=== PATIENT | female | born 1955 | race Asian ===

== ENCOUNTER 2017-08-16 21:58 | Inpatient (IN) | payer MEDICAID, OTHER ==
[~2017-08-16] VITALS: Ht 152.4 cm; Wt 90.3 kg
[2017-08-16] MEDS ORDERED: AMLODIPINE BES2.5 MG ORAL (22:03)
[2017-08-16] MEDS ORDERED: SIMVASTATIN5 MG ORAL (22:03)
[2017-08-16] MEDS ORDERED: METOPROLOL TART25 MG ORAL (22:03)
[2017-08-16] MEDS ORDERED: Albuterol ud Inhalation HHN ONE (22:15)
[2017-08-16] MEDS ORDERED: Ipratropium 0.02% Inh Soln 2.5ml UD HHN ONE (22:15)
[2017-08-16] MEDS ORDERED: Solu-MEDROL 125mg Inj IVP ONE (22:15)
--- NOTE | 2017-08-16 22:16 | Emergency Room Report ---
History of Present Illness General Chief Complaint: Dyspnea/Respdistress Source: Patient, EMS Present Illness HPI Is a 51-year-old female who has a history pulmonary hypertension. She does not have COPD. She presents with shortness of breath the last 2 days. Per EMS observation was sooner percent room air. They put her on oxygen brought her here. Patient normally on 2 L of oxygen at home home. Complaining of shortness of breath the last 2 days. No fever or chills. No cough or congestion. Worse with exertion. Said her symptom in the past. No fever or chills. No nausea vomiting. No chest pain. No leg edema or pain. Allergies: Coded Allergies: No Known Allergies (Unverified , 08/16/17) Patient History Past Medical History: see triage record, old chart reviewed Past Surgical History: other Pertinent Family History: none Social History: Denies: smoking, alcohol use, drug use Last Menstrual Period: unk Now: No Immunizations: other Reviewed Nursing Documentation: PMH: Agreed, PSxH: Agreed Nursing Documentation-PMH Past Medical History: No History, Except For Hx Hypertension: Yes Hx COPD: Yes Hx Diabetes: Yes Review of Systems Eye: Denies: eye pain, blurred vision ENT: Denies: ear pain, nose congestion, throat swelling Respiratory: Reports: shortness of breath, Denies: cough Cardiovascular: Denies: chest pain, palpitations Gastrointestinal: Denies: abdominal pain, diarrhea, nausea, vomiting Musculoskeletal: Denies: back pain, joint pain Skin: Denies: rash Neurological: Denies: headache, numbness Endocrine: Denies: increased thirst, increased urine Hematologic/Lymphatic: Denies: easy bruising All Other Systems: negative except mentioned in HPI Physical Exam Vital Signs Date Time Temp Pulse Resp B/P (MAP) Pulse Ox O2 Delivery O2 Flow Rate FiO2 08/16/17 21:52 73 24 142/83 94 Room Air vitals with hypoxia. Oxygenation is 88% on 6 L Sp02 EP Interpretation: abnormal General Appearance: alert, GCS 15, mild distress, obese Head: normocephalic, atraumatic Eyes: bilateral eye PERRL, bilateral eye EOMI ENT: hearing grossly normal, normal pharynx Neck: full range of motion, supple, no meningismus Respiratory: chest non-tender, lungs clear, normal breath sounds, decreased breath sounds Cardiovascular #1: regular rate, rhythm, no murmur Gastrointestinal: normal bowel sounds, non tender, no mass, no organomegaly, no bruit, non-distended Musculoskeletal: back normal, gait/station normal, normal range of motion Psychiatric: mood/affect normal Skin: warm/dry Procedures Critical Care Time Critical Care Time Critical care is mandated in this patient who presented with acute on chronic respiratory failure requiring intubation.. Patient require my urgent intervention to attenuate the risks of () which may lead to cardiovascular collapse and . Critical care time is 35 minutes excluding any reportable procedure. Critical care time included evaluation, multiple reevaluation, looking at old charts, interpreting laboratory and diagnostic data, discussing case with patient and family and consultants, and charting. Intubation Intubation : Consent: Emergent Intubation Method: orotracheal Tube Size (cm): 7.5 Medications: Etomidate, Succinylcholine Breath Sounds after Intubation: equal Intubation Complications: no complications Post Intubation Xray: Yes Progress/Xray Impression: ETT 4cm above gayla. no ptx Attempts: One Patient Tolerated: Well Complications: None Medical Decision Making Diagnostic Impression: Primary Impression: Respiratory failure requiring intubation Additional Impressions: Respiratory failure with hypoxia and hypercapnia Qualified Codes: J96.21 - Acute and chronic respiratory failure with hypoxia; J96.22 - Acute and chronic respiratory failure with hypercapnia Acute exacerbation of CHF (congestive heart failure) Qualified Codes: I50.9 - Heart failure, unspecified Pneumonia Qualified Codes: J18.9 - Pneumonia, unspecified organism ACS (acute coronary syndrome) NSTEMI, initial episode of care Morbid obesity with BMI of 40.0-44.9, adult Proteinuria Qualified Codes: R80.9 - Proteinuria, unspecified ER Course Patient presents with respiratory distress with hypoxia. She has multiple issues. . She has acute on chronic respiratory failure. She was waiting for bed, she became more somnolent. Blood gas she'll hypercapnia. She has history of shortness sleep apnea and I place her on BiPAP. This did not help. Her CO2 is to increase. I intubated her. Labs showed myocardial infarction. This may be secondary to pulmonary week. She also has CHF. There is an infiltrate versus ground glass density in the lung. This may be infiltrate versus vascular congestion/edema. I went and cover with antibiotics. Dr. Lee was in ER and saw pt. He will admit for Dr. Schmidt. Laboratory Tests Test 08/16/17 22:20 08/17/17 00:53 08/17/17 02:00 08/17/17 03:55 White Blood Count 9.0 K/UL (4.8-10.8) Red Blood Count 5.54 M/UL (4.20-5.40) H Hemoglobin 15.5 G/DL (12.0-16.0) Hematocrit 55.5 % (37.0-47.0) H Mean Corpuscular Volume 100 FL (80-99) H Mean Corpuscular Hemoglobin 27.9 PG (27.0-31.0) Mean Corpuscular Hemoglobin Concent 27.9 G/DL (32.0-36.0) L Red Cell Distribution Width 14.9 % (11.6-14.8) H Platelet Count 164 K/UL (150-450) Mean Platelet Volume 9.1 FL (6.5-10.1) Neutrophils (%) (Auto) 62.6 % (45.0-75.0) Lymphocytes (%) (Auto) 30.4 % (20.0-45.0) Monocytes (%) (Auto) 5.5 % (1.0-10.0) Eosinophils (%) (Auto) 0.3 % (0.0-3.0) Basophils (%) (Auto) 1.2 % (0.0-2.0) Prothrombin Time 10.4 SEC (9.30-11.50) Prothromb Time International Ratio 1.0 (0.9-1.1) Activated Partial Thromboplast Time 25 SEC (23-33) D-Dimer 1.13 mg/L FEU (0.00-0.49) H Sodium Level 138 MMOL/L (136-145) Potassium Level 4.7 MMOL/L (3.5-5.1) Chloride Level 97 MMOL/L (98-107) L Carbon Dioxide Level 40 MMOL/L (21-32) H Anion Gap 0 mmol/L (5-15) L Blood Urea Nitrogen 17 mg/dL (7-18) Creatinine 1.3 MG/DL (0.55-1.30) Estimat Glomerular Filtration Rate 41.9 mL/min (>60) Glucose Level 151 MG/DL (74-106) H Calcium Level 7.6 MG/DL (8.5-10.1) L Total Bilirubin 0.8 MG/DL (0.2-1.0) Aspartate Amino Transf (AST/SGOT) 25 U/L (15-37) Alanine Aminotransferase (ALT/SGPT) 18 U/L (12-78) Alkaline Phosphatase 87 U/L (46-116) Total Creatine Kinase 73 U/L (26-308) Creatine Kinase MB 2.1 NG/ML (0.0-3.6) Creatine Kinase MB Relative Index 2.8 Troponin I 0.694 ng/mL (0.000-0.056) Pro-B-Type Natriuretic Peptide 6230 pg/mL (0-125) H Total Protein 8.7 G/DL (6.4-8.2) H Albumin 3.4 G/DL (3.4-5.0) Globulin 5.3 g/dL Albumin/Globulin Ratio 0.6 (1.0-2.7) L Urine Color Pale yellow Urine Appearance Clear Urine pH 5 (4.5-8.0) Urine Specific [place] 1.010 (1.005-1.035) Urine Protein 3+ (NEGATIVE) H Urine Glucose (UA) Negative (NEGATIVE) Urine Ketones Negative (NEGATIVE) Urine Occult Blood 1+ (NEGATIVE) H Urine Nitrite Negative (NEGATIVE) Urine Bilirubin Negative (NEGATIVE) Urine Urobilinogen Normal MG/DL (0.0-1.0) Urine Leukocyte Esterase 1+ (NEGATIVE) H Urine RBC 0-2 /HPF (0 - 2) Urine WBC 2-4 /HPF (0 - 2) Urine Squamous Epithelial Cells Moderate /LPF (NONE/OCC) H Urine Bacteria Few /HPF (NONE) Arterial Blood pH 7.120 (7.350-7.450) 7.040 (7.350-7.450) Arterial Blood Partial Pressure CO2 138.2 mmHg (35.0-45.0) *H 178.5 mmHg (35.0-45.0) *H Arterial Blood Partial Pressure O2 89.0 mmHg (75.0-100.0) 82.4 mmHg (75.0-100.0) Arterial Blood HCO3 44.1 mmol/L (22.0-26.0) H 47.7 mmol/L (22.0-26.0) H Arterial Blood Oxygen Saturation 94.6 % (92.0-98.0) 92.4 % (92.0-98.0) Arterial Blood Base Excess 8.4 9.3 Ajay Test Positive Positive Lab Results Impression labs with elevated troponin and BNP EKG Diagnostic Results Rate: normal Rhythm: NSR ST Segments: other - NSST changes Rhythm Strip Diag. Results Rhythm Strip Time: 22:16 EP Interpretation: yes Rate: 80 Rhythm: NSR, no PVC's, no ectopy Chest X-Ray Diagnostic Results Chest X-Ray Diagnostic Results #1: Chest X-Ray Ordered: Yes # of Views/Limited/Complete: 1 View Indication: Shortness of Breath EP Interpretation: Yes Interpretation: no effusion, no pneumothorax, other - Cardiomegaly with vasc congestion. ?RML infiltrate Impression: Other - CHF Electronically Signed by: Gregg Layne MD Chest X-Ray Diagnostic Results #2: Chest X-Ray Ordered: Yes # of Views/Limited/Complete: 1 View Indication: Shortness of Breath EP Interpretation: Yes Interpretation: no effusion, no pneumothorax, other - s/p ETT. Impression: Other - s/p intubation Electronically Signed by: Gregg Layne MD Last Vital Signs Date Time Temp Pulse Resp B/P (MAP) Pulse Ox O2 Delivery O2 Flow Rate FiO2 08/16/17 22:00 73 24 Room Air 08/16/17 21:52 142/83 94 Status: improved Disposition: ADMITTED INPATIENT Condition: Critical GREGG LAYNE M.D. Aug 16, 2017 22:16
[2017-08-16 22:48] LABS: BASOPHILS % (AUTO) 1.2 % (0.0-2.0); EOSINOPHILS % (AUTO) 0.3 % (0.0-3.0); HEMATOCRIT 55.5 % (37.0-47.0); HEMOGLOBIN 15.5 G/DL (12.0-16.0); LYMPHOCYTES % (AUTO) 30.4 % (20.0-45.0); MEAN CORPUSCULAR VOLUME 100 FL (80-99); MONOCYTES % (AUTO) 5.5 % (1.0-10.0); NEUTROPHILS % (AUTO) 62.6 % (45.0-75.0); PLATELET COUNT 164 K/UL (150-450); RED BLOOD COUNT 5.54 M/UL (4.20-5.40); RED CELL DISTRIBUTION WIDTH 14.9 % (11.6-14.8)
[2017-08-16 23:09] LABS: ALANINE AMINOTRANSFERASE 18 U/L (12-78); ALBUMIN 3.4 G/DL (3.4-5.0); ALBUMIN/GLOBULIN RATIO 0.6 (1.0-2.7); ALKALINE PHOSPHATASE 87 U/L (46-116); ANION GAP 0 mmol/L (5-15); ASPARTATE AMINO TRANSFERASE 25 U/L (15-37); BILIRUBIN,TOTAL 0.8 MG/DL (0.2-1.0); BLOOD UREA NITROGEN 17 mg/dL (7-18); CALCIUM 7.6 MG/DL (8.5-10.1); CHLORIDE 97 MMOL/L (98-107); CKMB 2.1 NG/ML (0.0-3.6); CREATINE KINASE 73 U/L (26-308); CREATININE 1.3 MG/DL (0.55-1.30); POTASSIUM 4.7 MMOL/L (3.5-5.1); SODIUM 138 MMOL/L (136-145)
[2017-08-16 23:11] LABS: CARBON DIOXIDE 40 MMOL/L (21-32)
[2017-08-16] MEDS ORDERED: Enoxaparin 100mg Inj SUBQ ONE (23:15)
[2017-08-16] MEDS ORDERED: Aspirin Baby 81mg ORAL ONE (23:15)
[2017-08-17] VITALS (18 sets, daily range): BP systolic 98–154; BP diastolic 35–90
[2017-08-17 01:13] LABS: APPEARANCE,URINE CLEAR; BILIRUBIN, URINE NEGATIVE (NEGATIVE); COLOR,URINE PALE YELLOW; GLUCOSE, URINE (UA) NEGATIVE (NEGATIVE); KETONES,URINE NEGATIVE (NEGATIVE); LEUKOCYTE ESTERASE ,URINE 1+ (NEGATIVE); NITRITE,URINE NEGATIVE (NEGATIVE); PH,URINE 5 (4.5-8.0); PROTEIN,URINE 3+ (NEGATIVE); UROBILINOGEN,URINE NORMAL MG/DL (0.0-1.0)
[2017-08-17] MEDS ORDERED: Albuterol ud Inhalation HHN ONE (01:45)
[2017-08-17] MEDS ORDERED: Midazolam 2mg/2ml Inj IVP ONE (05:00)
[2017-08-17] MEDS ORDERED: Zosyn 3.375gm inj ONE (05:10)
[2017-08-17] MEDS ORDERED: Piperacillin/Tazobactam 3.375 GM in NS 55 ML IVPB ONE (05:15)
[2017-08-17] MEDS ORDERED: LANTUS SOL100 UNIT/1 SUBQ (08:37)
--- NOTE | 2017-08-17 10:13 | Diagnostic Imaging Report ---
Indication: Chest pain Technique: Continuous helical transaxial imaging of the chest was obtained from the thoracic inlet to the upper abdomen during rapid intravenous contrast administration. Arterial phase of enhancement obtained. Coronal 2-D reformats were also obtained and maximum intensity projection images in multiple planes. Study obtained in a Siemens sensation [address] Automatic Exposure Control was utilized. Total Dose length Product (DLP): 1410.[address] Dose Index Volume (CTDIvol): 38.24 37.87, 12.62 mGy Comparison: None Findings: There is no pulmonary embolus identified. The main pulmonary artery is enlarged which is consistent with pulmonary artery hypertension. The aorta is normal in caliber. There is no dissection or aneurysm. The heart is moderately enlarged. Trace pleural effusions are present bilaterally. There is evidence of posterior basilar atelectasis without reticular densities noted within the lungs especially in the dependent portion of the lungs. Reflux contrast into the IVC demonstrated. Visualized part of the upper abdomen is unremarkable in appearance. IMPRESSION: No evidence of pulmonary embolus, aortic dissection or aneurysm. Evidence of pulmonary artery hypertension. Moderate cardiomegaly. Reflux contrast into the IVC. Right heart failure versus tricuspid regurgitation. Posterior basilar atelectasis and trace pleural effusions. [facility] has communicated the preliminary results to the Emergency Department. Their findings are largely concordant with this report. The CT scanner at [facility] is accredited by the [employer] and the scans are performed using dose optimization techniques as appropriate to a performed exam including Automatic Exposure control.
--- NOTE | 2017-08-17 11:34 | Diagnostic Imaging Report ---
Indication: Dyspnea Comparison: 08/16/2017 A single view chest radiograph was obtained. Findings: Endotracheal tube is in the position. There is no change otherwise. Pulmonary edema and enlargement of the pulmonary artery and cardiomegaly are noted. IMPRESSION: Endotracheal tube in good position. CHF
--- NOTE | 2017-08-17 11:44 | Diagnostic Imaging Report ---
Indication: Dyspnea Comparison: None A single view chest radiograph was obtained. Findings: Pulmonary edema is present. The heart is enlarged. Bones are osteopenic. IMPRESSION: Moderate pulmonary edema
--- NOTE | 2017-08-17 12:50 | Cardiology Report ---
APPROVED REPORT EKG Measurement Heart [id number] MI [id number] Normal sinus rhythm with sinus arrhythmia Possible Left atrial enlargement Right axis deviation Possible Right ventricular hypertrophy Abnormal ECG
--- NOTE | 2017-08-17 15:51 | Pulmonolgy Critical Care Note ---
Critical Care - Asmt/Plan Assessment/Plan: ASSESSMENT acute hypoxemic hypercapnic RF requiring intubation elevated troponin possible NSTEMI pulmonary edema possible CHF exacerbation pulmonary arterial HTN possible sepsis possible PNA cellulitis BLE elevated D dimer morbid obesity COPD/asthma DM HTN Hyperlipidemia hx of DIANN PLAN OF CARE ICU care vent support pulmonary toilet daily CXR and ABG and titrate settings as needed serial troponin ECHO diuresis cardio eval monitor volumes,cardiorenal parameters start Lovenox bid for now with further rec from cardio CTA no PE Venous Duplex BLE empiric abx, fup with cx, ID consult not cleared if she has COPD ? pulmonary HTN in middle age female w/out hx of COPD concerning for collagen vascular disease, will get SESAR panel DVT /GI prophylaxis BS management with SS sensitive insulin BP monitoring , normotensive BiPAP at night when extubated hypercapnia possibly element of chronic plan to start weaning soon case discussed and evaluated by supervising physician Critical Care - Objective Last 24 Hour Vital Signs Date Time Temp Pulse Resp B/P (MAP) Pulse Ox O2 Delivery O2 Flow Rate FiO2 08/17/17 15:29 75 31 30 08/17/17 15:00 67 17 124/66 98 Mechanical Ventilator 30 08/17/17 14:00 62 17 114/60 97 Mechanical Ventilator 30 08/17/17 13:40 72 08/17/17 13:28 99.0 92 17 111/68 95 Mechanical Ventilator 15.0 30 08/17/17 13:21 99.0 92 17 111/68 95 Mechanical Ventilator 30 08/17/17 13:14 66 18 100 08/17/17 12:55 98.9 72 20 111/50 94 Mechanical Ventilator 30 08/17/17 12:33 65 17 105/61 95 Mechanical Ventilator 30 08/17/17 11:10 15.0 30 08/17/17 10:54 61 17 100 08/17/17 10:32 61 17 123/35 100 Mechanical Ventilator 60 08/17/17 09:11 15.0 50 08/17/17 08:57 68 19 100 08/17/17 07:51 63 19 98/38 100 Mechanical Ventilator 08/17/17 06:58 62 18 100 08/17/17 06:16 15.0 100 08/17/17 05:23 88 23 138/90 100 Endotracheal Tube 15.0 100 08/17/17 04:41 89 23 100 08/17/17 03:25 88 23 140/78 95 Bi-pap 15.0 40 08/17/17 02:37 79 23 95 Facial 40 08/17/17 01:52 94 22 100 Non-Rebreather 15.0 100 08/17/17 01:30 92 18 99 Non-Rebreather 15.0 100 08/17/17 00:00 83 18 154/69 100 Non-Rebreather 15.0 100 08/16/17 22:28 89 18 100 Non-Rebreather 15.0 100 08/16/17 22:23 88 18 Non-Rebreather 15.0 100 08/16/17 22:18 88 18 99 Non-Rebreather 15.0 100 08/16/17 22:00 73 24 Room Air 08/16/17 21:52 73 24 142/83 94 Room Air Status: awake Condition: critical HEENT: atraumatic, normocephalic, other - OP with ET in palce, intact Lungs: clear - with moderate air exchange , few isolated rales at bases Heart: HR/BP stable Abdomen: soft, non-tender - obese Extremities: no C/C/E, other - BLE with redness, edema, hot to touch Critical Care - Subjective ROS Limited/Unobtainable: Yes - du7e to intubation Interval Events: intubated due to severe hypercapnic hypoxemic RF on BiPAP elevated troponin unclear if has COPD hx but CTA , which was done due to elevated D dimer ( and showed no evidence of PE) demonstrated PAH currently awake, responsive, no signs of resp distress on current settings Condition: critical IV Access: peripheral EKG Rhythm: Sinus Rhythm FI02: 30 Vent Support Breath Rate: 17 Vent Support Mode: AC Vent Tidal Volume: 500 Sputum Amount: Small PEEP: 5.0 PIP: 30 I&O: Intake and Output 08/16/17 08/17/17 19:00 07:00 Intake Total 0 ml Balance 0 ml Intake Oral 0 ml ET-Tube: 7.5 ET Position: 19 [place] [facility]Estefania COTTON Aug 17, 2017 15:51
[2017-08-17] MEDS ORDERED: Albuterol/Ipratropium 3ml neb HHN PRN (16:15)
[2017-08-17] MEDS ORDERED: Vancomycin 1gm in D5W 275ml IVPB SCH (18:00)
--- NOTE | 2017-08-17 19:23 | Consultation ---
Consult Note Consult Note Cardiology for Dr. Tao Full note dictated #[id number] Assessment/Plan Assessment: 61 yo HF w/ pulm hypertension, adm w/ respiratory failure. CXR, BNP c/w CHF. Mild trop inc and anterior T inversion - ? acute anterior nonSTEMI . CTA- neg PE, aortic dissection Rec: will check serial trop, EKGs. ECHO - tech difficult - wall motion not assessed. RV press reported as 20 (prelim). Agree w/ iv lasix for pulm edema. Vent support. Start asa, statin, b krishna and continue lovenox sc. Will follow. Full note dictated #[id number] HOSSEIN LOVE Aug 17, 2017 19:23
[2017-08-17] MEDS: Albuterol/Ipratropium 3ml neb INH SCH (19:28)
[2017-08-17] MEDS: Aspirin Baby 81mg NG SCH (20:00)
[2017-08-17] MEDS: Metoprolol Tartrate 12.5mg TAB NG SCH (21:11)
[2017-08-17] MEDS: Enoxaparin Sodium 300mg/3ml vial SUBQ SCH (21:13)
[2017-08-17] MEDS: Piperacillin/Tazobactam 3.375 GM in D5W 55 ML IVPB SCH (21:59)
[2017-08-18] VITALS (24 sets, daily range): BP systolic 99–132; BP diastolic 42–75
--- NOTE | 2017-08-18 03:00 | Consultation ---
DATE OF CONSULTATION: 08/17/2017 CARDIOLOGY CONSULTATION CONSULTING PHYSICIAN: Jasmin Mallory M.D. This is a cardiology consultation done as coverage for Dr. Tao. REQUESTING PHYSICIAN: Viv Schmidt M.D. REASON FOR CONSULTATION: Elevated troponin and abnormal EKG. HISTORY OF PRESENT ILLNESS: History is obtained primarily from the chart as the patient is intubated, able to answer few questions with nodding or shaking her head. The patient is a 61-year-old woman with a history of pulmonary hypertension and diabetes, who presented to the emergency room with increasing shortness of breath over 2 days prior to admission. Per the emergency room notes, she was on 2 liters of nasal cannula oxygen at home. She had no cough, fever, or chills. She was in respiratory distress with oxygen saturation in the 80s and required urgent intubation and mechanical ventilation. She is currently seen in the ICU on the ventilator. She denies chest pain, previous history of myocardial infarction, or angina. On admission, her troponin level was elevated at 0.694. EKG showed some right ventricular hypertrophy and anterior T-wave inversions. The preliminary echo was a technically difficult study, but reports an ejection fraction of 55%, limited evaluation of wall motion and no significant valve lesions. PAST MEDICAL HISTORY: As noted above. MEDICATIONS: Currently, Protonix 40 mg IV daily, Zosyn 3.375 g IV q.8 h., Lasix 40 mg IV q.12 h., Lovenox 90 mg subcutaneously q.12 h., albuterol/ipratropium nebulizer t.i.d., and vancomycin 1 g IV q.24 h. dosing per pharmacy. ALLERGIES: No known drug allergies. SOCIAL HISTORY: Not obtainable from the patient or chart. REVIEW OF SYSTEMS: Not obtainable from the patient or chart. PHYSICAL EXAMINATION: VITAL SIGNS: Blood pressure is 110/64, pulse 73 and regular, respirations 20, and temperature 99. GENERAL: Sedated, well-developed woman, who is on the ventilator, in no respiratory distress. HEENT: Normocephalic and atraumatic. Pupils are equal, round, and reactive to light. Sclerae anicteric. Endotracheal tube in place. NECK: Supple. There is no jugular venous distention. No thyromegaly or adenopathy. LUNGS: Bilateral scattered rhonchi. No rales or wheezes. HEART: Regular S1 and S2. No murmurs, rubs, S3, or S4. ABDOMEN: Soft and nontender. No palpable mass. No bruits. EXTREMITIES: No cyanosis, clubbing, or edema. Pulses, distal extremity pulses 2+ bilaterally. SKIN: Warm and dry. No rashes or lesions. LABORATORY AND DIAGNOSTIC DATA: Sodium 138, potassium 4.7, chloride 97, bicarbonate 40, BUN 17, and creatinine 1.3. Troponin 0.694, repeat 0.547. Lactic acid 2.7. ProBNP 6230. Hemoglobin 15, hematocrit 55, and white blood count 9000. INR 1.0. Arterial blood gas on admission, pH 7.12, pCO2 of 138, pO2 of 89, and oxygen saturation 94%. Post intubation, pH 7.51, pCO2 of 49, pO2 of 56, and saturation 93%. Chest x-ray shows cardiomegaly and pulmonary edema. EKG on admission showed sinus rhythm with sinus arrhythmia, right axis deviation, right atrial enlargement, and anterior T-wave inversion. Repeat EKG today shows sinus rhythm, rate of 68 beats per minute, deeply inverted T-waves in V1 through V4, RSR prime in V1, biphasic T-waves in V3 and aVF. Chest CT angiogram shows a large main pulmonary artery and left and right main pulmonary arteries consistent with pulmonary hypertension. No aneurysm or dissection. No central pulmonary embolus. Peripheral branches were not evaluated due to respiratory motion and parenchymal abnormalities. ASSESSMENT AND RECOMMENDATIONS: The patient is a 61-year-old woman with pulmonary hypertension, who was admitted with respiratory failure, currently intubated and on mechanical ventilation. She has mild troponin elevation and EKG suggestive of anterior non-ST elevation myocardial infarction with deeply inverted T-waves anteriorly. Her echocardiogram does not report wall motion abnormalities, however, it is a technically difficult study. Her chest x-ray appears with pulmonary edema. I would favor diuretics for pulmonary edema. We will start aspirin, statin, beta-blockers, and continue anticoagulation. Troponins will be trended and serial EKGs obtained. She will require further assessment for ischemia once she is more stable from a pulmonary standpoint. She may have an underlying pneumonia and is being covered with intravenous antibiotics and treated as per her primary physician. Jasmin Mallory M.D. DR: HOWARD JOB#: [id number] CC:
[2017-08-18 04:57] LABS: BASOPHILS % (AUTO) 0.7 % (0.0-2.0); EOSINOPHILS % (AUTO) 0.1 % (0.0-3.0); HEMATOCRIT 48.7 % (37.0-47.0); HEMOGLOBIN 14.6 G/DL (12.0-16.0); LYMPHOCYTES % (AUTO) 19.1 % (20.0-45.0); MEAN CORPUSCULAR VOLUME 96 FL (80-99); PLATELET COUNT 165 K/UL (150-450); RED BLOOD COUNT 5.08 M/UL (4.20-5.40); WHITE BLOOD COUNT 9.4 K/UL (4.8-10.8)
[2017-08-18 05:33] LABS: ALANINE AMINOTRANSFERASE 11 U/L (12-78); ALBUMIN 2.8 G/DL (3.4-5.0); ALBUMIN/GLOBULIN RATIO 0.7 (1.0-2.7); ALKALINE PHOSPHATASE 62 U/L (46-116); ANION GAP 4 mmol/L (5-15); ASPARTATE AMINO TRANSFERASE 26 U/L (15-37); BILIRUBIN,TOTAL 1.7 MG/DL (0.2-1.0); BLOOD UREA NITROGEN 21 mg/dL (7-18); CALCIUM 8.4 MG/DL (8.5-10.1); CHLORIDE 98 MMOL/L (98-107); CHOLESTEROL 190 MG/DL (< 200); CREATININE 1.6 MG/DL (0.55-1.30); HDL CHOLESTEROL 51 MG/DL (40-60); POTASSIUM 3.6 MMOL/L (3.5-5.1); SODIUM 142 MMOL/L (136-145); TRIGLYCERIDES 118 MG/DL (30-150)
[2017-08-18 06:04] LABS: CARBON DIOXIDE 40 MMOL/L (21-32)
[2017-08-18 06:06] LABS: BILIRUBIN,DIRECT 0.4 MG/DL (0.0-0.3)
[2017-08-18] MEDS: Piperacillin/Tazobactam 3.375 GM in D5W 55 ML IVPB SCH (06:10)
--- NOTE | 2017-08-18 07:15 | History and Physical Report ---
DATE OF ADMISSION: 08/17/2017 INTERNAL MEDICINE HISTORY AND PHYSICAL Covering for Dr. Segal. IDENTIFICATION DATA: The patient is a pleasant 61-year-old female with past medical history significant for pulmonary hypertension, who presents at this time with respiratory failure, BNP elevated consistent with congestive heart failure, mild troponin increase, potentially anterior T-wave inversion, and potentially anterior NSTEMI. CTA showed no evidence of pulmonary embolism or aortic dissection. Recommended for checking serial troponins as per Cardiology Service. Vent support as the patient is intubated. She does have a history of COPD. She has been on oxygen in the past two liters and again currently admitted to the intensive care unit for further evaluation. PAST MEDICAL HISTORY: As noted above. PAST SURGICAL HISTORY: None noted. ALLERGIES: No known drug allergies. SOCIAL HISTORY: No alcohol or tobacco use except in the past. REVIEW OF SYSTEMS: A 12-point review of systems is otherwise negative besides as noted in the history of present illness. PHYSICAL EXAMINATION: GENERAL: No acute distress. VITAL SIGNS: Reviewed. PULMONARY: Decreased breath sounds. Status post intubation. CARDIOVASCULAR: Regular rate. No S3 or S4. ABDOMEN: Soft, nontender, and nondistended. EXTREMITIES: A 1+ edema. LABORATORY DATA: WBC 9.9, hemoglobin 14.5, and platelet count 164,000. ASSESSMENT AND RECOMMENDATIONS: 1. Respiratory failure, status post intubation. She has been seen by Pulmonary team. Continue to closely monitor. 2. Non-ST elevation myocardial infarction, potentially in the anterior area with elevated troponins, serial EKG and troponin is pending. CT if needed for pulmonary embolism. 3. Right ventricular strain, potentially services. Continue aspirin, statin, beta-krishna, and Lovenox subcutaneously. 4. Lactic acidosis. Continue to closely monitor, potentially secondary to demand. 5. Pulmonary hypertension. Diuresis. Evaluation per Pulmonary team. 6. Sepsis and pneumonia. Infectious Diseases Service has been consulted. I appreciate dairy feed sales consultant care. Dick Lee M.D. DR: ADELINE JOB#: [id number] CC:
[2017-08-18] MEDS: Albuterol/Ipratropium 3ml neb INH SCH ×3 (07:29→19:12)
[2017-08-18] MEDS: Pantoprazole Inj IVP SCH (09:01)
[2017-08-18] MEDS: Enoxaparin Sodium 300mg/3ml vial SUBQ SCH ×2 (09:03→21:36)
[2017-08-18] MEDS: Aspirin Baby 81mg NG SCH (09:03)
[2017-08-18] MEDS: Metoprolol Tartrate 12.5mg TAB NG SCH ×2 (09:03→21:30)
--- NOTE | 2017-08-18 09:58 | Pulmonolgy Critical Care Note ---
Critical Care - Asmt/Plan Assessment/Plan: ASSESSMENT acute hypoxemic hypercapnic RF requiring intubation elevated troponin possible NSTEMI pulmonary edema possible CHF exacerbation likely ATN pulmonary arterial HTN possible sepsis possible PNA cellulitis BLE elevated D dimer morbid obesity COPD/asthma DM HTN Hyperlipidemia hx of DIANN hypo Mg elevated TSH PLAN OF CARE ICU care vent support pulmonary toilet ABG stable this am start weaning protocol serial troponin trending down ECHO diuresis, pro BNP trending down, creat up to 1.6 change Lasix to daily closely monitor renal parameters, lytes, volumes replace mg cardio follows continue Lovenox with regards to elevatad creat as per pharmacy dosing CTA no PE Venous Duplex BLE lipid panel with elevated LDL, 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 , but patient states she does pulmonary HTN in middle age female w/out hx of COPD concerning for collagen vascular disease, will get SESAR panel DVT /GI prophylaxis BS management with SS sensitive insulin, for now start NGT feeding with Glucerna, if extubated will do oral diet BP monitoring , normotensive BiPAP at night when extubated hypercapnia possibly element of chronic elevated TSH, check free T 4, r/o hypothyroidism , case discussed and evaluated by supervising physician Critical Care - Objective Last 24 Hour Vital Signs Date Time Temp Pulse Resp B/P (MAP) Pulse Ox O2 Delivery O2 Flow Rate FiO2 08/18/17 09:30 30 08/18/17 09:15 30 08/18/17 09:12 95 08/18/17 09:11 66 21 30 08/18/17 09:03 65 101/42 08/18/17 09:00 68 19 110/63 94 Mechanical Ventilator 30 08/18/17 08:00 97.8 67 18 101/42 94 Mechanical Ventilator 30 08/18/17 08:00 30 08/18/17 08:00 67 08/18/17 07:38 65 21 99 Mechanical Ventilator 30 08/18/17 07:30 62 20 100 Mechanical Ventilator 30 08/18/17 07:25 65 20 30 08/18/17 07:00 64 19 108/68 94 Mechanical Ventilator 30 08/18/17 06:00 63 18 108/68 94 Mechanical Ventilator 30 08/18/17 05:27 66 20 30 08/18/17 05:00 67 18 107/46 94 Mechanical Ventilator 30 08/18/17 04:00 63 08/18/17 04:00 30 08/18/17 04:00 98.0 63 18 109/69 94 Mechanical Ventilator 30 08/18/17 03:14 60 17 30 08/18/17 03:00 60 17 113/54 94 Mechanical Ventilator 30 08/18/17 02:00 65 17 115/52 95 Mechanical Ventilator 30 08/18/17 01:05 62 17 30 08/18/17 01:00 63 17 114/52 95 Mechanical Ventilator 30 08/18/17 00:00 30 08/18/17 00:00 86 08/18/17 00:00 98.6 62 17 100/56 94 Mechanical Ventilator 30 08/17/17 23:00 61 17 105/62 94 Mechanical Ventilator 30 08/17/17 22:58 67 17 30 08/17/17 22:00 65 17 106/62 94 Mechanical Ventilator 30 08/17/17 21:28 75 24 30 08/17/17 21:11 72 115/61 08/17/17 21:00 62 17 125/61 95 Mechanical Ventilator 30 08/17/17 20:00 98.8 62 17 115/61 94 Mechanical Ventilator 30 08/17/17 19:37 70 20 95 Mechanical Ventilator 30 08/17/17 19:28 30 08/17/17 19:27 70 20 95 Mechanical Ventilator 30 08/17/17 19:25 73 19 30 08/17/17 19:00 62 17 117/54 95 Mechanical Ventilator 30 08/17/17 18:00 73 20 110/64 96 Mechanical Ventilator 30 08/17/17 17:29 74 19 30 08/17/17 17:00 67 17 111/60 94 Mechanical Ventilator 30 08/17/17 16:00 71 08/17/17 16:00 30 08/17/17 16:00 99.0 72 17 118/68 96 Mechanical Ventilator 30 08/17/17 15:29 75 31 30 08/17/17 15:00 67 17 124/66 98 Mechanical Ventilator 30 08/17/17 14:00 62 17 114/60 97 Mechanical Ventilator 30 08/17/17 13:40 72 08/17/17 13:28 99.0 92 17 111/68 95 Mechanical Ventilator 15.0 30 08/17/17 13:21 99.0 92 17 111/68 95 Mechanical Ventilator 30 08/17/17 13:14 66 18 100 08/17/17 12:55 98.9 72 20 111/50 94 Mechanical Ventilator 30 08/17/17 12:33 65 17 105/61 95 Mechanical Ventilator 30 08/17/17 11:10 15.0 30 08/17/17 10:54 61 17 100 08/17/17 10:32 61 17 123/35 100 Mechanical Ventilator 60 Objective: Status: awake, intubated on vent AC Condition: critical HEENT: atraumatic, normocephalic, OP with ET in place, intact, NGT Lungs: clear - with moderate air exchange , few isolated rales at bases Heart: HR/BP stable Abdomen: soft, non-tender - obese Extremities: no C/C/E, BLE with redness, edema, hot to touch Critical Care - Subjective ROS Limited/Unobtainable: Yes Interval Events: ABG stable this am, no signs of respiratory distress troponin trending down creat up to 1.6 low Mg pro BNP down to 1208 Condition: critical IV Access: peripheral EKG Rhythm: Sinus Rhythm FI02: 30 Vent Support Breath Rate: 14 Vent Support Mode: CPAP Vent Tidal Volume: 500 Sputum Amount: Small PEEP: 5.0 PIP: 32 I&O: Intake and Output 08/17/17 08/18/17 19:00 07:00 Output Total 1613 ml 2390 ml Balance -1613 ml -2390 ml Output Urine Total 1613 ml 2390 ml Stool Total 0 ml CXR: 08/17 Pulmonary edema and enlargement of the pulmonary artery and cardiomegaly are noted. ET-Tube: 7.5 ET Position: 20 [place] [facility] Segura NP Aug 18, 2017 09:58
--- NOTE | 2017-08-18 10:04 | Consultation ---
History of Present Illness General Date patient seen: Aug 18, 2017 Time patient seen: 10:02 Chief Complaint: Dyspnea/Respdistress Present Illness HPI 61 y/o F with hx of pHTN, COPD on home O2 2l NC, CHF, DM2 presents to ED on with 2 days worsening of SOB. In ED was on respiratory distress with O2 sat in the 80s and was intubated and transferred to the ICU. CTA no PE. Found to have elevated BNP, elevated troponin and anterior T wave inversions Denies cough, f/c ID is consulted for possible PNA and b/l LE cellulitis Allergies: Coded Allergies: No Known Allergies (Unverified , 08/16/17) Medication History Scheduled Amlodipine Besylate* (Amlodipine Besylate*), 2.5 MG ORAL DAILY, (Reported) Insulin Glargine (Lantus), 2 UNITS SUBQ BID, (Reported) Metoprolol Tartrate* (Metoprolol Tartrate*), 25 MG ORAL EVERY 12 HOURS, ( Reported) Simvastatin (Zocor), 5 MG ORAL BEDTIME, (Reported) Patient History Healthcare decision maker Resuscitation status Full Code Advanced Directive on File Patient History Narrative PMhx: as above SHx: No alcohol or tobacco use except in the past. Fhx: non contributory Review of Systems ROS Narrative unable to obtain Physical Exam Physical Exam Narrative GENERAL: No acute distress. VITAL SIGNS: Reviewed. PULMONARY: Decreased breath sounds. Status post intubation. CARDIOVASCULAR: Regular rate. No S3 or S4. ABDOMEN: Soft, nontender, and nondistended. EXTREMITIES: A 1+ edema. b/l leg chornic venous stasis changes Last 24 Hour Vital Signs Date Time Temp Pulse Resp B/P (MAP) Pulse Ox O2 Delivery O2 Flow Rate FiO2 08/18/17 09:30 30 08/18/17 09:15 30 08/18/17 09:12 95 08/18/17 09:11 66 21 30 08/18/17 09:03 65 101/42 08/18/17 09:00 68 19 110/63 94 Mechanical Ventilator 30 08/18/17 08:00 97.8 67 18 101/42 94 Mechanical Ventilator 30 08/18/17 08:00 30 08/18/17 08:00 67 08/18/17 07:38 65 21 99 Mechanical Ventilator 30 08/18/17 07:30 62 20 100 Mechanical Ventilator 30 08/18/17 07:25 65 20 30 08/18/17 07:00 64 19 108/68 94 Mechanical Ventilator 30 08/18/17 06:00 63 18 108/68 94 Mechanical Ventilator 30 08/18/17 05:27 66 20 30 08/18/17 05:00 67 18 107/46 94 Mechanical Ventilator 30 08/18/17 04:00 63 08/18/17 04:00 30 08/18/17 04:00 98.0 63 18 109/69 94 Mechanical Ventilator 30 08/18/17 03:14 60 17 30 08/18/17 03:00 60 17 113/54 94 Mechanical Ventilator 30 08/18/17 02:00 65 17 115/52 95 Mechanical Ventilator 30 08/18/17 01:05 62 17 30 08/18/17 01:00 63 17 114/52 95 Mechanical Ventilator 30 08/18/17 00:00 30 08/18/17 00:00 86 08/18/17 00:00 98.6 62 17 100/56 94 Mechanical Ventilator 30 08/17/17 23:00 61 17 105/62 94 Mechanical Ventilator 30 08/17/17 22:58 67 17 30 08/17/17 22:00 65 17 106/62 94 Mechanical Ventilator 30 08/17/17 21:28 75 24 30 08/17/17 21:11 72 115/61 08/17/17 21:00 62 17 125/61 95 Mechanical Ventilator 30 08/17/17 20:00 98.8 62 17 115/61 94 Mechanical Ventilator 30 08/17/17 19:37 70 20 95 Mechanical Ventilator 30 08/17/17 19:28 30 08/17/17 19:27 70 20 95 Mechanical Ventilator 30 08/17/17 19:25 73 19 30 08/17/17 19:00 62 17 117/54 95 Mechanical Ventilator 30 08/17/17 18:00 73 20 110/64 96 Mechanical Ventilator 30 08/17/17 17:29 74 19 30 08/17/17 17:00 67 17 111/60 94 Mechanical Ventilator 30 08/17/17 16:00 71 08/17/17 16:00 30 08/17/17 16:00 99.0 72 17 118/68 96 Mechanical Ventilator 30 08/17/17 15:29 75 31 30 12/27/17 15:00 67 17 124/66 98 Mechanical Ventilator 30 08/17/17 14:00 62 17 114/60 97 Mechanical Ventilator 30 08/17/17 13:40 72 08/17/17 13:28 99.0 92 17 111/68 95 Mechanical Ventilator 15.0 30 08/17/17 13:21 99.0 92 17 111/68 95 Mechanical Ventilator 30 08/17/17 13:14 66 18 100 08/17/17 12:55 98.9 72 20 111/50 94 Mechanical Ventilator 30 08/17/17 12:33 65 17 105/61 95 Mechanical Ventilator 30 08/17/17 11:10 15.0 30 08/17/17 10:54 61 17 100 08/17/17 10:32 61 17 123/35 100 Mechanical Ventilator 60 Intake and Output 08/17/17 08/18/17 19:00 07:00 Output Total 1613 ml 2390 ml Balance -1613 ml -2390 ml Output Urine Total 1613 ml 2390 ml Stool Total 0 ml Laboratory Tests Test 08/17/17 11:30 08/17/17 12:30 08/17/17 12:35 08/17/17 18:35 Lactic Acid Level 2.70 mmol/L (0.66-2.22) H 2.30 mmol/L (0.66-2.22) H 1.90 mmol/L (0.66-2.22) Troponin I 0.547 ng/mL (0.000-0.056) 0.457 ng/mL (0.000-0.056) Arterial Blood pH 7.510 (7.350-7.450) Arterial Blood Partial Pressure CO2 49.5 mmHg (35.0-45.0) H Arterial Blood Partial Pressure O2 56.2 mmHg (75.0-100.0) L Arterial Blood HCO3 39.2 mmol/L (22.0-26.0) H Arterial Blood Oxygen Saturation 93.2 % (92.0-98.0) Arterial Blood Base Excess 14.1 Ajay Test Positive Test 08/18/17 04:47 08/18/17 09:35 White Blood Count 9.4 K/UL (4.8-10.8) Red Blood Count 5.08 M/UL (4.20-5.40) Hemoglobin 14.6 G/DL (12.0-16.0) Hematocrit 48.7 % (37.0-47.0) H Mean Corpuscular Volume 96 FL (80-99) Mean Corpuscular Hemoglobin 28.8 PG (27.0-31.0) Mean Corpuscular Hemoglobin Concent 30.0 G/DL (32.0-36.0) L Red Cell Distribution Width 14.0 % (11.6-14.8) Platelet Count 165 K/UL (150-450) Mean Platelet Volume 8.4 FL (6.5-10.1) Neutrophils (%) (Auto) 71.0 % (45.0-75.0) Lymphocytes (%) (Auto) 19.1 % (20.0-45.0) L Monocytes (%) (Auto) 9.0 % (1.0-10.0) Eosinophils (%) (Auto) 0.1 % (0.0-3.0) Basophils (%) (Auto) 0.7 % (0.0-2.0) Sodium Level 142 MMOL/L (136-145) Potassium Level 3.6 MMOL/L (3.5-5.1) Chloride Level 98 MMOL/L (98-107) Carbon Dioxide Level 40 MMOL/L (21-32) H Anion Gap 4 mmol/L (5-15) L Blood Urea Nitrogen 21 mg/dL (7-18) H Creatinine 1.6 MG/DL (0.55-1.30) H Estimat Glomerular Filtration Rate 33.0 mL/min (>60) Glucose Level 102 MG/DL (74-106) Hemoglobin A1c 5.7 % (4.3-6.0) Calcium Level 8.4 MG/DL (8.5-10.1) L Magnesium Level 1.4 MG/DL (1.8-2.4) L Total Bilirubin 1.7 MG/DL (0.2-1.0) H Direct Bilirubin 0.4 MG/DL (0.0-0.3) H Aspartate Amino Transf (AST/SGOT) 26 U/L (15-37) Alanine Aminotransferase (ALT/SGPT) 11 U/L (12-78) L Alkaline Phosphatase 62 U/L (46-116) Troponin I 0.430 ng/mL (0.000-0.056) Pro-B-Type Natriuretic Peptide 1208 pg/mL (0-125) H Total Protein 7.1 G/DL (6.4-8.2) Albumin 2.8 G/DL (3.4-5.0) L Globulin 4.3 g/dL Albumin/Globulin Ratio 0.7 (1.0-2.7) L Triglycerides Level 118 MG/DL (30-150) Cholesterol Level 190 MG/DL (< 200) LDL Cholesterol 131 mg/dL (<100) H HDL Cholesterol 51 MG/DL (40-60) Cholesterol/HDL Ratio 3.7 (3.3-4.4) Thyroid Stimulating Hormone (TSH) 6.732 uiU/mL (0.358-3.740) Anti-Nuclear Antibody Screen Pending Arterial Blood pH 7.500 (7.350-7.450) Arterial Blood Partial Pressure CO2 54.7 mmHg (35.0-45.0) H Arterial Blood Partial Pressure O2 98.1 mmHg (75.0-100.0) Arterial Blood HCO3 42.2 mmol/L (22.0-26.0) H Arterial Blood Oxygen Saturation 97.5 % (92.0-98.0) Arterial Blood Base Excess 16.0 Ajay Test Positive Height (Feet): 5 Height (Inches): 11.00 Weight (Pounds): 199 Medications Current Medications Medications (Trade) Dose Ordered Sig/Jenny Route PRN Reason Start Time Stop Time Status Last Admin Dose Admin Albuterol/ Ipratropium (Albuterol/ Ipratropium) 3 ml Q4H PRN HHN sob 08/17/17 16:15 08/22/17 16:14 Albuterol/ Ipratropium (Albuterol/ Ipratropium) 3 ml TIDRT INH 08/17/17 19:00 08/22/17 18:59 08/18/17 07:29 Aspirin (ASA) 81 mg DAILY NG 08/17/17 20:00 09/16/17 19:59 08/18/17 09:03 Atorvastatin Calcium (Lipitor) 10 mg BEDTIME ORAL 08/17/17 21:00 09/16/17 20:59 08/17/17 21:18 Dextrose (Dextrose 50%) STAT PRN IV Hypoglycemia 08/18/17 09:00 09/17/17 08:59 Enoxaparin Sodium (Lovenox) 90 mg EVERY 12 HOURS SUBQ 08/17/17 21:00 09/16/17 20:59 08/18/17 09:03 Furosemide (Lasix) 40 mg DAILY IV 08/19/17 09:00 09/16/17 20:59 UNV Insulin Aspart (NovoLOG) Q6HR SUBQ 08/18/17 12:00 09/17/17 11:29 UNV Magnesium Sulfate 100 ml @ 100 mls/hr ONCE ONCE IV 08/18/17 11:00 08/18/17 11:59 UNV Metoprolol Tartrate (Lopressor) 12.5 mg Q12HR NG 08/17/17 21:00 09/16/17 20:59 08/18/17 09:03 Pantoprazole (Protonix) 40 mg DAILY IVP 08/18/17 09:00 09/17/17 08:59 08/18/17 09:01 Piperacillin Sod/ Tazobactam Sod 3.375 gm/Dextrose 55 ml @ 13.75 mls/ hr Q8HR IVPB 08/17/17 22:00 08/24/17 21:59 08/18/17 06:10 Vancomycin HCl (Vanco rx to dose) 1 ea DAILY PRN MISC Per rx protocol 08/17/17 16:15 09/16/17 16:14 Vancomycin HCl 1 gm/Dextrose 275 ml @ 183.708 mls/hr Q24H IVPB 08/17/17 18:00 08/22/17 17:59 08/17/17 17:59 Assessment/Plan Assessment/Plan Abx: IV Vanco 08/17- Zosyn 08/17- Levaquin x1 08/17 Assessment: Acute hypercapneic/hypoxic respiratory failure s/p intubation 08/17- likely due to CHF exacerbation with possible COPD exacerbation -? PNA- no obvious infiltrates on CXR -CTA chest: No evidence of pulmonary embolus, aortic dissection or aneurysm. Evidence of pulmonary artery hypertension. Moderate cardiomegaly. Reflux contrast into the IVC. Right heart failure versus tricuspid regurgitation. Posterior basilar atelectasis and trace pleural effusions. -CXR : Moderate pulmonary edema afebrile, no leukocytosis Lactic acidosis- resolved -u/a no pyuria B/L LE chronic venous stasis changes- no cellulitis ALIYAH Troponinemia pHTN COPD on home O2 2l NC CHF DM2 Plan: -Switch Zosyn to Ceftriaxone and d/c IV Vanco as no evidence of leg cellulitis -f/u cx -Monitor CBC/CMP, temperatures Thank your for this consultation. Will continue to follow along with you. Discussed with Parisa Fairchild M.D. Aug 18, 2017 10:04
[2017-08-18] MEDS: NovoLOG Insulin Flexpen SUBQ SCH ×3 (11:18→21:00)
[2017-08-18] MEDS ORDERED: NovoLOG Insulin Flexpen SUBQ SCH (11:30)
--- NOTE | 2017-08-18 12:23 | Consultation ---
Consult Note Consult Note asked to eval for rising Cr to 1.6 Is a 51-year-old female who has a history pulmonary hypertension. She does not have COPD. She presents with shortness of breath the last 2 days. Per EMS observation was sooner percent room air. They put her on oxygen brought her here. Patient normally on 2 L of oxygen at home home. Complaining of shortness of breath the last 2 days. No fever or chills. No cough or congestion. Worse with exertion. Said her symptom in the past. No fever or chills. No nausea vomiting. No chest pain. No leg edema or pain. 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 Peoteinuria, HypoAlbuminemia, r/o Nephrotic Syndrom conditions: acute hypoxemic hypercapnic RF requiring intubation elevated troponin possible NSTEMI pulmonary edema - CHF exacerbation pulmonary arterial HTN possible sepsis ,possible PNA, cellulitis BLE elevated D dimer morbid obesity COPD/asthma DM HTN Hyperlipidemia hx of DIANN elevated TSH Sugg: Cardiac and pulmonary Optimization- Avoid Nephrotoxics- Monitor renal parameters correct electrolytes keep BP and BS under control Urine studies LEONOR GENTILE Aug 18, 2017 12:23
--- NOTE | 2017-08-18 12:41 | Diagnostic Imaging Report ---
Indication: Reason For Exam: SOB Technique: One view of the chest Comparison: 08/17/2017 Findings: Stable right hilar fullness. There appears to be decreased basilar congestion. Stable satisfactory position of endotracheal tube. Interim placement of a nasogastric tube, tip of which projects beyond the edge of the image, presumably in good position. The heart remains enlarged. Impression: Improving basilar parenchymal infiltrates versus edema, over one day Satisfactory nasogastric intubation Other findings as described
[2017-08-18] MEDS ORDERED: cefTRIAXone 1 GM in D5W 55 ML IVPB SCH (14:00)
--- NOTE | 2017-08-18 17:25 | Cardiology Progress Note ---
Assessment/Plan Problem List: (1) Pulmonary hypertension (2) Acute exacerbation of CHF (congestive heart failure) (3) NSTEMI, initial episode of care (4) Morbid obesity with BMI of 40.0-44.9, adult (5) Respiratory failure requiring intubation Status: stable, progressing Status Narrative Mrs. Hilario has improved clinically and was successfully extubated today. She has diuresed significantly w/ IV lasix ( appx 3L today) w improvement in XR and BNP. Troponin levels are decreasing. EKG shows deeply inverted anterior T waves c/w ischemia or nonSTEMI. However, old ekg not available for comparison. ECHO - technically difficult. Wall motion not assessed. Assessment/Plan Continue aspirin, statin, metoprolol. hold diuretics , as pt developing pre-renal azotemia. Further w/u for ? myocardial ischemia. Stress nuclear study vs cath. Will attempt to obtain old ekg for comparison. Subjective ROS Limited/Unobtainable: No Subjective Cardiology for Dr. Tao Events noted. Pt extubated. No chest pain. Objective Last 24 Hour Vital Signs Date Time Temp Pulse Resp B/P (MAP) Pulse Ox O2 Delivery O2 Flow Rate FiO2 08/18/17 16:00 98.0 80 18 123/71 90 Nasal Cannula 4.0 08/18/17 16:00 81 08/18/17 15:00 76 19 115/48 95 Nasal Cannula 4.0 08/18/17 14:00 85 20 111/53 95 Nasal Cannula 4.0 08/18/17 13:09 84 21 95 Nasal Cannula 4.0 36 08/18/17 13:00 80 20 124/75 95 Nasal Cannula 4.0 08/18/17 12:58 79 20 94 Nasal Cannula 4.0 36 08/18/17 12:55 Nasal Cannula 5.0 08/18/17 12:55 94 Nasal Cannula 5.0 08/18/17 12:55 Nasal Cannula 4.0 36 08/18/17 12:00 30 08/18/17 12:00 98.0 80 18 122/56 94 Mechanical Ventilator 30 08/18/17 12:00 79 08/18/17 11:03 76 27 30 08/18/17 11:00 75 19 123/72 95 Mechanical Ventilator 30 08/18/17 10:00 70 19 123/72 94 Mechanical Ventilator 30 08/18/17 09:30 30 1228/17 09:15 30 08/18/17 09:12 95 08/18/17 09:11 66 21 30 08/18/17 09:03 65 101/42 08/18/17 09:00 68 19 110/63 94 Mechanical Ventilator 30 08/18/17 08:00 97.8 67 18 101/42 94 Mechanical Ventilator 30 08/18/17 08:00 30 08/18/17 08:00 67 08/18/17 07:38 65 21 99 Mechanical Ventilator 30 08/18/17 07:30 62 20 100 Mechanical Ventilator 30 08/18/17 07:25 65 20 30 08/18/17 07:00 64 19 108/68 94 Mechanical Ventilator 30 08/18/17 06:00 63 18 108/68 94 Mechanical Ventilator 30 08/18/17 05:27 66 20 30 08/18/17 05:00 67 18 107/46 94 Mechanical Ventilator 30 08/18/17 04:00 63 08/18/17 04:00 30 08/18/17 04:00 98.0 63 18 109/69 94 Mechanical Ventilator 30 08/18/17 03:14 60 17 30 08/18/17 03:00 60 17 113/54 94 Mechanical Ventilator 30 08/18/17 02:00 65 17 115/52 95 Mechanical Ventilator 30 08/18/17 01:05 62 17 30 08/18/17 01:00 63 17 114/52 95 Mechanical Ventilator 30 08/18/17 00:00 30 08/18/17 00:00 86 08/18/17 00:00 98.6 62 17 100/56 94 Mechanical Ventilator 30 08/17/17 23:00 61 17 105/62 94 Mechanical Ventilator 30 08/17/17 22:58 67 17 30 08/17/17 22:00 65 17 106/62 94 Mechanical Ventilator 30 08/17/17 21:28 75 24 30 08/17/17 21:11 72 115/61 08/17/17 21:00 62 17 125/61 95 Mechanical Ventilator 30 08/17/17 20:00 98.8 62 17 115/61 94 Mechanical Ventilator 30 08/17/17 19:37 70 20 95 Mechanical Ventilator 30 08/17/17 19:28 30 08/17/17 19:27 70 20 95 Mechanical Ventilator 30 12/27/17 19:25 73 19 30 08/17/17 19:00 62 17 117/54 95 Mechanical Ventilator 30 08/17/17 18:00 73 20 110/64 96 Mechanical Ventilator 30 08/17/17 17:29 74 19 30 General Appearance: WD/WN, no apparent distress, obese EENT: PERRL/EOMI Neck: supple, no JVD Rhythm: NSR Cardiovascular: normal rate, regular rhythm Respiratory/Chest: lungs clear Abdomen: non tender, soft, no mass Extremities: no swelling Intake and Output 08/17/17 08/18/17 19:00 07:00 Intake Total 288.75 ml Output Total 1613 ml 2390 ml Balance -1613 ml -2101.25 ml IV Total 288.75 ml Output Urine Total 1613 ml 2390 ml Stool Total 0 ml Laboratory Tests Test 08/17/17 18:35 08/18/17 04:47 08/18/17 09:35 08/18/17 11:05 Lactic Acid Level 1.90 mmol/L (0.66-2.22) Troponin I 0.457 ng/mL (0.000-0.056) 0.430 ng/mL (0.000-0.056) White Blood Count 9.4 K/UL (4.8-10.8) Red Blood Count 5.08 M/UL (4.20-5.40) Hemoglobin 14.6 G/DL (12.0-16.0) Hematocrit 48.7 % (37.0-47.0) H Mean Corpuscular Volume 96 FL (80-99) Mean Corpuscular Hemoglobin 28.8 PG (27.0-31.0) Mean Corpuscular Hemoglobin Concent 30.0 G/DL (32.0-36.0) L Red Cell Distribution Width 14.0 % (11.6-14.8) Platelet Count 165 K/UL (150-450) Mean Platelet Volume 8.4 FL (6.5-10.1) Neutrophils (%) (Auto) 71.0 % (45.0-75.0) Lymphocytes (%) (Auto) 19.1 % (20.0-45.0) L Monocytes (%) (Auto) 9.0 % (1.0-10.0) Eosinophils (%) (Auto) 0.1 % (0.0-3.0) Basophils (%) (Auto) 0.7 % (0.0-2.0) Sodium Level 142 MMOL/L (136-145) Potassium Level 3.6 MMOL/L (3.5-5.1) Chloride Level 98 MMOL/L (98-107) Carbon Dioxide Level 40 MMOL/L (21-32) H Anion Gap 4 mmol/L (5-15) L Blood Urea Nitrogen 21 mg/dL (7-18) H Creatinine 1.6 MG/DL (0.55-1.30) H Estimat Glomerular Filtration Rate 33.0 mL/min (>60) Glucose Level 102 MG/DL (74-106) Hemoglobin A1c 5.7 % (4.3-6.0) Calcium Level 8.4 MG/DL (8.5-10.1) L Magnesium Level 1.4 MG/DL (1.8-2.4) L Total Bilirubin 1.7 MG/DL (0.2-1.0) H Direct Bilirubin 0.4 MG/DL (0.0-0.3) H Aspartate Amino Transf (AST/SGOT) 26 U/L (15-37) Alanine Aminotransferase (ALT/SGPT) 11 U/L (12-78) L Alkaline Phosphatase 62 U/L (46-116) Pro-B-Type Natriuretic Peptide 1208 pg/mL (0-125) H Total Protein 7.1 G/DL (6.4-8.2) Albumin 2.8 G/DL (3.4-5.0) L Globulin 4.3 g/dL Albumin/Globulin Ratio 0.7 (1.0-2.7) L Triglycerides Level 118 MG/DL (30-150) Cholesterol Level 190 MG/DL (< 200) LDL Cholesterol 131 mg/dL (<100) H HDL Cholesterol 51 MG/DL (40-60) Cholesterol/HDL Ratio 3.7 (3.3-4.4) Thyroid Stimulating Hormone (TSH) 6.732 uiU/mL (0.358-3.740) Anti-Nuclear Antibody Screen Pending Arterial Blood pH 7.500 (7.350-7.450) 7.520 (7.350-7.450) Arterial Blood Partial Pressure CO2 54.7 mmHg (35.0-45.0) H 54.1 mmHg (35.0-45.0) H Arterial Blood Partial Pressure O2 98.1 mmHg (75.0-100.0) 60.9 mmHg (75.0-100.0) L Arterial Blood HCO3 42.2 mmol/L (22.0-26.0) H 43.2 mmol/L (22.0-26.0) H Arterial Blood Oxygen Saturation 97.5 % (92.0-98.0) 92.5 % (92.0-98.0) Arterial Blood Base Excess 16.0 17.1 Ajay Test Positive Positive [facility] Aug 18, 2017 17:25
[2017-08-19] VITALS (14 sets, daily range): BP systolic 85–128; BP diastolic 44–82
[2017-08-19 06:10] LABS: EOSINOPHILS % (AUTO) 0.7 % (0.0-3.0); HEMATOCRIT 53.7 % (37.0-47.0); HEMOGLOBIN 16.1 G/DL (12.0-16.0); LYMPHOCYTES % (AUTO) 17.7 % (20.0-45.0); MEAN CORPUSCULAR VOLUME 96 FL (80-99); MONOCYTES % (AUTO) 10.1 % (1.0-10.0); NEUTROPHILS % (AUTO) 70.6 % (45.0-75.0); PLATELET COUNT 161 K/UL (150-450); RED BLOOD COUNT 5.59 M/UL (4.20-5.40); RED CELL DISTRIBUTION WIDTH 14.6 % (11.6-14.8); WHITE BLOOD COUNT 9.3 K/UL (4.8-10.8)
[2017-08-19] MEDS: NovoLOG Insulin Flexpen SUBQ SCH (06:27)
[2017-08-19 06:49] LABS: CREATINE KINASE 101 U/L (26-308); GAMMA GLUTAMYL TRANSPEPTIDASE 13 U/L (5-85); PHOSPHORUS 4.1 MG/DL (2.5-4.9)
[2017-08-19 06:53] LABS: ALANINE AMINOTRANSFERASE 11 U/L (12-78); ALBUMIN 2.9 G/DL (3.4-5.0); ALBUMIN/GLOBULIN RATIO 0.6 (1.0-2.7); ALKALINE PHOSPHATASE 72 U/L (46-116); ANION GAP 3 mmol/L (5-15); ASPARTATE AMINO TRANSFERASE 25 U/L (15-37); BILIRUBIN,TOTAL 1.6 MG/DL (0.2-1.0); BLOOD UREA NITROGEN 21 mg/dL (7-18); CALCIUM 8.2 MG/DL (8.5-10.1); CHLORIDE 98 MMOL/L (98-107); CREATININE 1.3 MG/DL (0.55-1.30); POTASSIUM 3.5 MMOL/L (3.5-5.1); SODIUM 142 MMOL/L (136-145)
[2017-08-19 07:01] LABS: CARBON DIOXIDE 41 MMOL/L (21-32)
[2017-08-19 07:04] LABS: BILIRUBIN,DIRECT 0.3 MG/DL (0.0-0.3)
[2017-08-19] MEDS: Albuterol/Ipratropium 3ml neb INH SCH ×3 (07:26→19:40)
--- NOTE | 2017-08-19 08:03 | Cardiology Progress Note ---
Assessment/Plan Problem List: (1) Pulmonary hypertension (2) Acute exacerbation of CHF (congestive heart failure) (3) NSTEMI, initial episode of care (4) Morbid obesity with BMI of 40.0-44.9, adult (5) Respiratory failure requiring intubation Status: stable, progressing Status Narrative Mrs. Hilario has improved clinically and was successfully extubated on 08/18. She has pulmonary hypertension -? cause. She has diuresed significantly w/ IV lasix . Troponin levels are decreasing. EKG shows deeply inverted anterior T waves c/w ischemia or nonSTEMI. However, old ekg not available for comparison. ECHO - technically difficult. Wall motion not assessed. Assessment/Plan Continue aspirin, statin, metoprolol. Would give diamox for diuresis , given met alkalosis. Further w/u for ischemia w/ stress (pharmacologic) nuclear study when stable, out of ICU. Evaluation for cause of pulm hypertension per primary team- ? SESAR, RF ?. Pt states no COPD. No evidence for cardiac cause for pulm hypertension or chronic PEs Subjective ROS Limited/Unobtainable: No Subjective Cardiology for Dr. Tao Events noted. Pt on cpap overnight. No c/o cp Objective Last 24 Hour Vital Signs Date Time Temp Pulse Resp B/P (MAP) Pulse Ox O2 Delivery O2 Flow Rate FiO2 08/19/17 07:33 88 22 95 Nasal Cannula 5.0 40 08/19/17 07:26 95 Nasal Cannula 5.0 40 08/19/17 07:26 Nasal Cannula 5.0 40 08/19/17 07:26 76 25 95 Nasal Cannula 5.0 40 08/19/17 06:00 70 24 99/63 94 Bi-pap 35 08/19/17 05:13 68 26 94 Facial 35 08/19/17 05:00 69 24 99/69 93 Bi-pap 35 08/19/17 04:00 68 08/19/17 04:00 98.2 62 24 103/65 93 Bi-pap 35 08/19/17 03:00 68 24 98/65 92 Bi-pap 35 08/19/17 02:38 66 24 93 Facial 35 08/19/17 02:00 72 26 101/50 92 Bi-pap 35 08/19/17 01:00 72 22 110/74 94 Bi-pap 35 08/19/17 00:45 81 29 92 Facial 35 08/19/17 00:00 65 08/19/17 00:00 98.5 78 22 118/82 94 Bi-pap 35 08/18/17 23:00 78 22 117/61 94 Bi-pap 35 08/18/17 22:38 69 28 92 Facial 35 08/18/17 22:00 84 24 118/62 94 Bi-pap 35 08/18/17 21:30 81 132/66 08/18/17 21:05 89 29 93 Facial 35 08/18/17 21:00 96 26 132/66 94 Bi-pap 35 08/18/17 20:00 83 08/18/17 20:00 98.3 98 24 108/61 90 Nasal Cannula 3.0 08/18/17 19:25 92 27 95 Facial 30 08/18/17 19:22 92 28 95 Bi-pap 30 08/18/17 19:17 80 25 Nasal Cannula 5.0 40 08/18/17 19:12 Nasal Cannula 5.0 40 08/18/17 19:12 79 25 90 Nasal Cannula 5.0 40 08/18/17 19:12 90 Nasal Cannula 5.0 40 08/18/17 19:00 96 19 99/62 90 Nasal Cannula 4.0 08/18/17 18:00 96 19 115/72 90 Nasal Cannula 4.0 08/18/17 17:00 86 19 117/59 95 Nasal Cannula 4.0 08/18/17 16:00 98.0 80 18 123/71 90 Nasal Cannula 4.0 08/18/17 16:00 81 08/18/17 15:00 76 19 115/48 95 Nasal Cannula 4.0 08/18/17 14:00 85 20 111/53 95 Nasal Cannula 4.0 08/18/17 13:09 84 21 95 Nasal Cannula 4.0 36 08/18/17 13:00 80 20 124/75 95 Nasal Cannula 4.0 08/18/17 12:58 79 20 94 Nasal Cannula 4.0 36 08/18/17 12:55 Nasal Cannula 5.0 08/18/17 12:55 94 Nasal Cannula 5.0 08/18/17 12:55 Nasal Cannula 4.0 36 08/18/17 12:00 30 08/18/17 12:00 98.0 80 18 122/56 94 Mechanical Ventilator 30 08/18/17 12:00 79 08/18/17 11:03 76 27 30 08/18/17 11:00 75 19 123/72 95 Mechanical Ventilator 30 08/18/17 10:00 70 19 123/72 94 Mechanical Ventilator 30 08/18/17 09:30 30 08/18/17 09:15 30 08/18/17 09:12 95 08/18/17 09:11 66 21 30 08/18/17 09:03 65 101/42 08/18/17 09:00 68 19 110/63 94 Mechanical Ventilator 30 08/18/17 08:00 97.8 67 18 101/42 94 Mechanical Ventilator 30 08/18/17 08:00 30 08/18/17 08:00 67 General Appearance: WD/WN, no apparent distress, alert, obese EENT: PERRL/EOMI Neck: supple, no JVD Rhythm: NSR Cardiovascular: normal rate, regular rhythm Respiratory/Chest: no respiratory distress, crackles/rales - few crackles at bases Abdomen: non tender, soft Extremities: no swelling Intake and Output 08/18/17 08/19/17 19:00 07:00 Intake Total 96.25 ml Output Total 3510 ml 570 ml Balance -3413.75 ml -570 ml IV Total 96.25 ml Output Urine Total 3510 ml 570 ml Laboratory Tests Test 08/18/17 09:35 08/18/17 11:05 08/19/17 05:00 Arterial Blood pH 7.500 (7.350-7.450) 7.520 (7.350-7.450) Arterial Blood Partial Pressure CO2 54.7 mmHg (35.0-45.0) H 54.1 mmHg (35.0-45.0) H Arterial Blood Partial Pressure O2 98.1 mmHg (75.0-100.0) 60.9 mmHg (75.0-100.0) L Arterial Blood HCO3 42.2 mmol/L (22.0-26.0) H 43.2 mmol/L (22.0-26.0) H Arterial Blood Oxygen Saturation 97.5 % (92.0-98.0) 92.5 % (92.0-98.0) Arterial Blood Base Excess 16.0 17.1 Ajay Test Positive Positive White Blood Count 9.3 K/UL (4.8-10.8) Red Blood Count 5.59 M/UL (4.20-5.40) H Hemoglobin 16.1 G/DL (12.0-16.0) H Hematocrit 53.7 % (37.0-47.0) H Mean Corpuscular Volume 96 FL (80-99) Mean Corpuscular Hemoglobin 28.8 PG (27.0-31.0) Mean Corpuscular Hemoglobin Concent 30.0 G/DL (32.0-36.0) L Red Cell Distribution Width 14.6 % (11.6-14.8) Platelet Count 161 K/UL (150-450) Mean Platelet Volume 8.3 FL (6.5-10.1) Neutrophils (%) (Auto) 70.6 % (45.0-75.0) Lymphocytes (%) (Auto) 17.7 % (20.0-45.0) L Monocytes (%) (Auto) 10.1 % (1.0-10.0) H Eosinophils (%) (Auto) 0.7 % (0.0-3.0) Basophils (%) (Auto) 1.0 % (0.0-2.0) Sodium Level 142 MMOL/L (136-145) Potassium Level 3.5 MMOL/L (3.5-5.1) Chloride Level 98 MMOL/L (98-107) Carbon Dioxide Level 41 MMOL/L (21-32) *H Anion Gap 3 mmol/L (5-15) L Blood Urea Nitrogen 21 mg/dL (7-18) H Creatinine 1.3 MG/DL (0.55-1.30) Estimat Glomerular Filtration Rate 41.9 mL/min (>60) Glucose Level 86 MG/DL (74-106) Uric Acid 8.0 MG/DL (2.6-7.2) H Calcium Level 8.2 MG/DL (8.5-10.1) L Phosphorus Level 4.1 MG/DL (2.5-4.9) Magnesium Level 1.9 MG/DL (1.8-2.4) Total Bilirubin 1.6 MG/DL (0.2-1.0) H Direct Bilirubin 0.3 MG/DL (0.0-0.3) Gamma Glutamyl Transpeptidase 13 U/L (5-85) Aspartate Amino Transf (AST/SGOT) 25 U/L (15-37) Alanine Aminotransferase (ALT/SGPT) 11 U/L (12-78) L Alkaline Phosphatase 72 U/L (46-116) Total Creatine Kinase 101 U/L (26-308) Troponin I 0.442 ng/mL (0.000-0.056) C-Reactive Protein, Quantitative 3.8 mg/dL (0.00-0.90) H Pro-B-Type Natriuretic Peptide 234 pg/mL (0-125) H Total Protein 7.8 G/DL (6.4-8.2) Albumin 2.9 G/DL (3.4-5.0) L Globulin 4.9 g/dL Albumin/Globulin Ratio 0.6 (1.0-2.7) L Free Thyroxine 1.41 NG/DL (0.76-1.46) HOSSEIN LOVE Aug 19, 2017 08:03
[2017-08-19] MEDS: Pantoprazole Inj IVP SCH (08:48)
[2017-08-19] MEDS: Aspirin Baby 81mg NG SCH (08:48)
[2017-08-19] MEDS: Metoprolol Tartrate 12.5mg TAB NG SCH ×2 (08:48→20:46)
[2017-08-19] MEDS: Enoxaparin Sodium 300mg/3ml vial SUBQ SCH ×2 (08:56→21:24)
--- NOTE | 2017-08-19 09:14 | General Progress Note ---
Assessment/Plan Assessment/Plan LATE ENTRY ASSESSMENT AND RECOMMENDATIONS: 1. Respiratory failure, status post intubation. She has been seen by Pulmonary team. Continue to closely monitor. 2. Non-ST elevation myocardial infarction,has been seen by business analyst Dr. Villalobos. no evidence of pulmonary embolism 3. Right ventricular strain, Continue aspirin, statin, beta-krishna, and Lovenox subcutaneously. 4. Lactic acidosis. Continue to closely monitor, 5. Pulmonary hypertension. Diuresis. Evaluation per Pulmonary team. Subjective Date patient seen: Aug 18, 2017 Allergies: Coded Allergies: No Known Allergies (Unverified , 08/16/17) All Systems: reviewed and negative except above Subjective no leukocytosis Objective Last 24 Hour Vital Signs Date Time Temp Pulse Resp B/P (MAP) Pulse Ox O2 Delivery O2 Flow Rate FiO2 08/19/17 08:48 89 120/68 08/19/17 07:33 88 22 95 Nasal Cannula 5.0 40 08/19/17 07:26 95 Nasal Cannula 5.0 40 08/19/17 07:26 Nasal Cannula 5.0 40 08/19/17 07:26 76 25 95 Nasal Cannula 5.0 40 08/19/17 06:00 70 24 99/63 94 Bi-pap 35 08/19/17 05:13 68 26 94 Facial 35 08/19/17 05:00 69 24 99/69 93 Bi-pap 35 08/19/17 04:00 68 08/19/17 04:00 98.2 62 24 103/65 93 Bi-pap 35 08/19/17 03:00 68 24 98/65 92 Bi-pap 35 08/19/17 02:38 66 24 93 Facial 35 08/19/17 02:00 72 26 101/50 92 Bi-pap 35 08/19/17 01:00 72 22 110/74 94 Bi-pap 35 08/19/17 00:45 81 29 92 Facial 35 08/19/17 00:00 65 08/19/17 00:00 98.5 78 22 118/82 94 Bi-pap 35 08/18/17 23:00 78 22 117/61 94 Bi-pap 35 08/18/17 22:38 69 28 92 Facial 35 08/18/17 22:00 84 24 118/62 94 Bi-pap 35 08/18/17 21:30 81 132/66 08/18/17 21:05 89 29 93 Facial 35 08/18/17 21:00 96 26 132/66 94 Bi-pap 35 08/18/17 20:00 83 08/18/17 20:00 98.3 98 24 108/61 90 Nasal Cannula 3.0 08/18/17 19:25 92 27 95 Facial 30 08/18/17 19:22 92 28 95 Bi-pap 30 08/18/17 19:17 80 25 Nasal Cannula 5.0 40 08/18/17 19:12 Nasal Cannula 5.0 40 08/18/17 19:12 79 25 90 Nasal Cannula 5.0 40 08/18/17 19:12 90 Nasal Cannula 5.0 40 08/18/17 19:00 96 19 99/62 90 Nasal Cannula 4.0 08/18/17 18:00 96 19 115/72 90 Nasal Cannula 4.0 08/18/17 17:00 86 19 117/59 95 Nasal Cannula 4.0 08/18/17 16:00 98.0 80 18 123/71 90 Nasal Cannula 4.0 08/18/17 16:00 81 08/18/17 15:00 76 19 115/48 95 Nasal Cannula 4.0 08/18/17 14:00 85 20 111/53 95 Nasal Cannula 4.0 08/18/17 13:09 84 21 95 Nasal Cannula 4.0 36 08/18/17 13:00 80 20 124/75 95 Nasal Cannula 4.0 08/18/17 12:58 79 20 94 Nasal Cannula 4.0 36 08/18/17 12:55 Nasal Cannula 5.0 08/18/17 12:55 94 Nasal Cannula 5.0 08/18/17 12:55 Nasal Cannula 4.0 36 08/18/17 12:00 30 08/18/17 12:00 98.0 80 18 122/56 94 Mechanical Ventilator 30 08/18/17 12:00 79 08/18/17 11:03 76 27 30 08/18/17 11:00 75 19 123/72 95 Mechanical Ventilator 30 08/18/17 10:00 70 19 123/72 94 Mechanical Ventilator 30 08/18/17 09:30 30 08/18/17 09:15 30 08/18/17 09:12 95 Intake and Output 08/18/17 08/19/17 19:00 07:00 Intake Total 96.25 ml Output Total 3510 ml 570 ml Balance -3413.75 ml -570 ml IV Total 96.25 ml Output Urine Total 3510 ml 570 ml Laboratory Tests 08/18/17 09:35: Arterial Blood pH 7.500H, Arterial Blood Partial Pressure CO2 54.7H, Arterial Blood Partial Pressure O2 98.1, Arterial Blood HCO3 42.2H, Arterial Blood Oxygen Saturation 97.5, Arterial Blood Base Excess 16.0, Ajay Test Positive 08/18/17 11:05: Arterial Blood pH 7.520H, Arterial Blood Partial Pressure CO2 54.1H, Arterial Blood Partial Pressure O2 60.9L, Arterial Blood HCO3 43.2H, Arterial Blood Oxygen Saturation 92.5, Arterial Blood Base Excess 17.1, Ajay Test Positive 08/19/17 05:00: White Blood Count 9.3, Red Blood Count 5.59H, Hemoglobin 16.1H, Hematocrit 53.7H , Mean Corpuscular Volume 96, Mean Corpuscular Hemoglobin 28.8, Mean Corpuscular Hemoglobin Concent 30.0L, Red Cell Distribution Width 14.6, Platelet Count 161, Mean Platelet Volume 8.3, Neutrophils (%) (Auto) 70.6, Lymphocytes (%) (Auto) 17.7L, Monocytes (%) (Auto) 10.1H, Eosinophils (%) (Auto ) 0.7, Basophils (%) (Auto) 1.0, Sodium Level 142, Potassium Level 3.5, Chloride Level 98, Carbon Dioxide Level 41*H, Anion Gap 3L, Blood Urea Nitrogen 21H, Creatinine 1.3, Estimat Glomerular Filtration Rate 41.9, Glucose Level 86, Uric Acid 8.0H, Calcium Level 8.2L, Phosphorus Level 4.1, Magnesium Level 1.9, Total Bilirubin 1.6H, Direct Bilirubin 0.3, Gamma Glutamyl Transpeptidase 13, Aspartate Amino Transf (AST/SGOT) 25, Alanine Aminotransferase (ALT/SGPT) 11L, Alkaline Phosphatase 72, Total Creatine Kinase 101, Troponin I 0.442H, C- Reactive Protein, Quantitative 3.8H, Pro-B-Type Natriuretic Peptide 234H, Total Protein 7.8, Albumin 2.9L, Globulin 4.9, Albumin/Globulin Ratio 0.6L, Free Thyroxine 1.41 08/19/17 08:53: Arterial Blood pH 7.485H, Arterial Blood Partial Pressure CO2 47.9H, Arterial Blood Partial Pressure O2 56.9L, Arterial Blood HCO3 35.3H, Arterial Blood Oxygen Saturation 90.7L, Arterial Blood Base Excess 10.1, Ajay Test Positive Height (Feet): 5 Height (Inches): 11.00 Weight (Pounds): 199 General Appearance: no apparent distress EENT: normal ENT inspection Neck: normal alignment Extremities: normal range of motion 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
--- NOTE | 2017-08-19 09:31 | Infectious Diseases Prog Note ---
Assessment/Plan Assessment/Plan Abx: IV Vanco 08/17-08/18 Ceftriaxone 08/18- Zosyn 08/17-08/18 Levaquin x1 08/17 Assessment: Acute hypercapneic/hypoxic respiratory failure s/p intubation 08/17; extubated 08/18- likely due to CHF exacerbation with possible COPD exacerbation -? PNA- no obvious infiltrates on CXR -CXR 08/18: Improving basilar parenchymal infiltrates versus edema, over one day -CTA chest: No evidence of pulmonary embolus, aortic dissection or aneurysm. Evidence of pulmonary artery hypertension. Moderate cardiomegaly. Reflux contrast into the IVC. Right heart failure versus tricuspid regurgitation. Posterior basilar atelectasis and trace pleural effusions. -CXR : Moderate pulmonary edema afebrile, no leukocytosis Lactic acidosis- resolved -u/a no pyuria B/L LE chronic venous stasis changes- no cellulitis ALIYAH Troponinemia pHTN COPD on home O2 2l NC CHF DM2 Plan: -Continue Ceftriaxone #2(abx #3/5) for possible PNA -08/18 SP Zosyn and Vanco #2 -f/u cx -Monitor CBC/CMP, temperatures Thank your for this consultation. Will continue to follow along with you. Discussed with RN Subjective Allergies: Coded Allergies: No Known Allergies (Unverified , 08/16/17) Subjective afebrile no leukocytosis extubated yesterday Objective Vital Signs Last 24 Hour Vital Signs Date Time Temp Pulse Resp B/P (MAP) Pulse Ox O2 Delivery O2 Flow Rate FiO2 08/19/17 08:48 89 120/68 08/19/17 07:33 88 22 95 Nasal Cannula 5.0 40 08/19/17 07:26 95 Nasal Cannula 5.0 40 08/19/17 07:26 Nasal Cannula 5.0 40 08/19/17 07:26 76 25 95 Nasal Cannula 5.0 40 08/19/17 06:00 70 24 99/63 94 Bi-pap 35 08/19/17 05:13 68 26 94 Facial 35 08/19/17 05:00 69 24 99/69 93 Bi-pap 35 08/19/17 04:00 68 08/19/17 04:00 98.2 62 24 103/65 93 Bi-pap 35 08/19/17 03:00 68 24 98/65 92 Bi-pap 35 08/19/17 02:38 66 24 93 Facial 35 08/19/17 02:00 72 26 101/50 92 Bi-pap 35 08/19/17 01:00 72 22 110/74 94 Bi-pap 35 08/19/17 00:45 81 29 92 Facial 35 08/19/17 00:00 65 08/19/17 00:00 98.5 78 22 118/82 94 Bi-pap 35 08/18/17 23:00 78 22 117/61 94 Bi-pap 35 08/18/17 22:38 69 28 92 Facial 35 08/18/17 22:00 84 24 118/62 94 Bi-pap 35 08/18/17 21:30 81 132/66 08/18/17 21:05 89 29 93 Facial 35 08/18/17 21:00 96 26 132/66 94 Bi-pap 35 08/18/17 20:00 83 08/18/17 20:00 98.3 98 24 108/61 90 Nasal Cannula 3.0 08/18/17 19:25 92 27 95 Facial 30 08/18/17 19:22 92 28 95 Bi-pap 30 08/18/17 19:17 80 25 Nasal Cannula 5.0 40 08/18/17 19:12 Nasal Cannula 5.0 40 08/18/17 19:12 79 25 90 Nasal Cannula 5.0 40 08/18/17 19:12 90 Nasal Cannula 5.0 40 08/18/17 19:00 96 19 99/62 90 Nasal Cannula 4.0 08/18/17 18:00 96 19 115/72 90 Nasal Cannula 4.0 08/18/17 17:00 86 19 117/59 95 Nasal Cannula 4.0 08/18/17 16:00 98.0 80 18 123/71 90 Nasal Cannula 4.0 08/18/17 16:00 81 08/18/17 15:00 76 19 115/48 95 Nasal Cannula 4.0 08/18/17 14:00 85 20 111/53 95 Nasal Cannula 4.0 08/18/17 13:09 84 21 95 Nasal Cannula 4.0 36 08/18/17 13:00 80 20 124/75 95 Nasal Cannula 4.0 08/18/17 12:58 79 20 94 Nasal Cannula 4.0 36 08/18/17 12:55 Nasal Cannula 5.0 08/18/17 12:55 94 Nasal Cannula 5.0 08/18/17 12:55 Nasal Cannula 4.0 36 08/18/17 12:00 30 08/18/17 12:00 98.0 80 18 122/56 94 Mechanical Ventilator 30 08/18/17 12:00 79 08/18/17 11:03 76 27 30 08/18/17 11:00 75 19 123/72 95 Mechanical Ventilator 30 08/18/17 10:00 70 19 123/72 94 Mechanical Ventilator 30 Height (Feet): 5 Height (Inches): 11.00 Weight (Pounds): 199 Objective GENERAL: No acute distress. VITAL SIGNS: Reviewed. PULMONARY: Decreased breath sounds. Status post intubation. CARDIOVASCULAR: Regular rate. No S3 or S4. ABDOMEN: Soft, nontender, and nondistended. EXTREMITIES: A 1+ edema. b/l leg chornic venous stasis changes Microbiology Date/Time Source Procedure Growth Status 08/17/17 12:35 Rectal Mucosa VRE Culture - Final NO VANCOMYCIN RESISTANT ENTEROCOCCUS ... Complete Laboratory Tests Test 08/18/17 09:35 08/18/17 11:05 08/19/17 05:00 08/19/17 08:53 Arterial Blood pH 7.500 (7.350-7.450) 7.520 (7.350-7.450) 7.485 (7.350-7.450) Arterial Blood Partial Pressure CO2 54.7 mmHg (35.0-45.0) H 54.1 mmHg (35.0-45.0) H 47.9 mmHg (35.0-45.0) H Arterial Blood Partial Pressure O2 98.1 mmHg (75.0-100.0) 60.9 mmHg (75.0-100.0) L 56.9 mmHg (75.0-100.0) L Arterial Blood HCO3 42.2 mmol/L (22.0-26.0) H 43.2 mmol/L (22.0-26.0) H 35.3 mmol/L (22.0-26.0) H Arterial Blood Oxygen Saturation 97.5 % (92.0-98.0) 92.5 % (92.0-98.0) 90.7 % (92.0-98.0) L Arterial Blood Base Excess 16.0 17.1 10.1 Ajay Test Positive Positive Positive White Blood Count 9.3 K/UL (4.8-10.8) Red Blood Count 5.59 M/UL (4.20-5.40) H Hemoglobin 16.1 G/DL (12.0-16.0) H Hematocrit 53.7 % (37.0-47.0) H Mean Corpuscular Volume 96 FL (80-99) Mean Corpuscular Hemoglobin 28.8 PG (27.0-31.0) Mean Corpuscular Hemoglobin Concent 30.0 G/DL (32.0-36.0) L Red Cell Distribution Width 14.6 % (11.6-14.8) Platelet Count 161 K/UL (150-450) Mean Platelet Volume 8.3 FL (6.5-10.1) Neutrophils (%) (Auto) 70.6 % (45.0-75.0) Lymphocytes (%) (Auto) 17.7 % (20.0-45.0) L Monocytes (%) (Auto) 10.1 % (1.0-10.0) H Eosinophils (%) (Auto) 0.7 % (0.0-3.0) Basophils (%) (Auto) 1.0 % (0.0-2.0) Sodium Level 142 MMOL/L (136-145) Potassium Level 3.5 MMOL/L (3.5-5.1) Chloride Level 98 MMOL/L (98-107) Carbon Dioxide Level 41 MMOL/L (21-32) *H Anion Gap 3 mmol/L (5-15) L Blood Urea Nitrogen 21 mg/dL (7-18) H Creatinine 1.3 MG/DL (0.55-1.30) Estimat Glomerular Filtration Rate 41.9 mL/min (>60) Glucose Level 86 MG/DL (74-106) Uric Acid 8.0 MG/DL (2.6-7.2) H Calcium Level 8.2 MG/DL (8.5-10.1) L Phosphorus Level 4.1 MG/DL (2.5-4.9) Magnesium Level 1.9 MG/DL (1.8-2.4) Total Bilirubin 1.6 MG/DL (0.2-1.0) H Direct Bilirubin 0.3 MG/DL (0.0-0.3) Gamma Glutamyl Transpeptidase 13 U/L (5-85) Aspartate Amino Transf (AST/SGOT) 25 U/L (15-37) Alanine Aminotransferase (ALT/SGPT) 11 U/L (12-78) L Alkaline Phosphatase 72 U/L (46-116) Total Creatine Kinase 101 U/L (26-308) Troponin I 0.442 ng/mL (0.000-0.056) C-Reactive Protein, Quantitative 3.8 mg/dL (0.00-0.90) H Pro-B-Type Natriuretic Peptide 234 pg/mL (0-125) H Total Protein 7.8 G/DL (6.4-8.2) Albumin 2.9 G/DL (3.4-5.0) L Globulin 4.9 g/dL Albumin/Globulin Ratio 0.6 (1.0-2.7) L Free Thyroxine 1.41 NG/DL (0.76-1.46) Current Medications Medications (Trade) Dose Ordered Sig/Jenny Route PRN Reason Start Time Stop Time Status Last Admin Dose Admin Albuterol/ Ipratropium (Albuterol/ Ipratropium) 3 ml Q4H PRN HHN sob 08/17/17 16:15 08/22/17 16:14 Albuterol/ Ipratropium (Albuterol/ Ipratropium) 3 ml TIDRT INH 08/17/17 19:00 08/22/17 18:59 08/19/17 07:26 Aspirin (ASA) 81 mg DAILY NG 08/17/17 20:00 09/16/17 19:59 08/19/17 08:48 Atorvastatin Calcium (Lipitor) 20 mg BEDTIME ORAL 08/18/17 21:00 09/17/17 20:59 08/18/17 21:31 Ceftriaxone Sodium 1 gm/ Dextrose 55 ml @ 110 mls/hr Q24H IVPB 08/18/17 14:00 08/25/17 13:59 08/18/17 14:54 Dextrose (Dextrose 50%) STAT PRN IV Hypoglycemia 08/18/17 09:00 09/17/17 08:59 Enoxaparin Sodium (Lovenox) 90 mg EVERY 12 HOURS SUBQ 08/17/17 21:00 09/16/17 20:59 08/19/17 08:56 Insulin Aspart (NovoLOG) AC+HS SUBQ 08/18/17 21:00 09/17/17 11:29 Metoprolol Tartrate (Lopressor) 25 mg Q12HR NG 08/18/17 21:00 09/17/17 20:59 08/19/17 08:48 Pantoprazole (Protonix) 40 mg DAILY IVP 08/18/17 09:00 09/17/17 08:59 08/19/17 08:48 Parisa Lackey M.D. Aug 19, 2017 09:31
--- NOTE | 2017-08-19 09:48 | Pulmonolgy Critical Care Note ---
Critical Care - Asmt/Plan Assessment/Plan: ASSESSMENT acute hypoxemic hypercapnic RF requiring intubation ( likely due to acute pulmonary edema and possible NSTEMI) s/p extubation 08/17 elevated troponin possible NSTEMI pulmonary edema possible CHF exacerbation likely ATN pulmonary arterial HTN possible sepsis possible PNA chronic venous stasis BLE elevated D dimer morbid obesity COPD/asthma DM HTN Hyperlipidemia hx of DIANN hypo Mg subclinical hypothyroidism with elevated TSH and normal free T4 PLAN OF CARE s/p extubation supplemental O2 titrate to keep sat above 90% BiPAP at night ( hx of DIANN) and prn ABG in am suspect element of chronic hypercapnia serial troponin trending down continue Lovenox cardio follows ECHO results pending diuresis, pro BNP trending down, creat down after Lasix changed to daily closely monitor renal parameters, lytes, volumes Mg stable after replacement CTA no PE Venous Duplex BLE lipid panel with elevated LDL, 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 , but patient states she does pulmonary HTN in middle age female w/out hx of COPD concerning for collagen vascular disease, SESAR panel pending DVT /GI prophylaxis BS management with SS sensitive insulin, swallow eval done, on oral diet after extubation BP monitoring , normotensive elevated TSH, normal free T 4, subclincial hypothyroidism , check TFT in 4-6 weeks case discussed and evaluated by supervising physician Critical Care - Objective Last 24 Hour Vital Signs Date Time Temp Pulse Resp B/P (MAP) Pulse Ox O2 Delivery O2 Flow Rate FiO2 08/19/17 09:00 87 16 128/47 98 Nasal Cannula 4.0 08/19/17 08:48 89 120/68 08/19/17 08:00 77 24 120/68 92 Nasal Cannula 4.0 08/19/17 07:33 88 22 95 Nasal Cannula 5.0 40 08/19/17 07:26 95 Nasal Cannula 5.0 40 08/19/17 07:26 Nasal Cannula 5.0 40 08/19/17 07:26 76 25 95 Nasal Cannula 5.0 40 08/19/17 07:00 97.8 76 26 85/67 94 Nasal Cannula 4.0 08/19/17 06:00 70 24 99/63 94 Bi-pap 35 08/19/17 05:13 68 26 94 Facial 35 08/19/17 05:00 69 24 99/69 93 Bi-pap 35 08/19/17 04:00 68 08/19/17 04:00 98.2 62 24 103/65 93 Bi-pap 35 08/19/17 03:00 68 24 98/65 92 Bi-pap 35 08/19/17 02:38 66 24 93 Facial 35 08/19/17 02:00 72 26 101/50 92 Bi-pap 35 08/19/17 01:00 72 22 110/74 94 Bi-pap 35 08/19/17 00:45 81 29 92 Facial 35 08/19/17 00:00 65 08/19/17 00:00 98.5 78 22 118/82 94 Bi-pap 35 08/18/17 23:00 78 22 117/61 94 Bi-pap 35 08/18/17 22:38 69 28 92 Facial 35 08/18/17 22:00 84 24 118/62 94 Bi-pap 35 08/18/17 21:30 81 132/66 08/18/17 21:05 89 29 93 Facial 35 08/18/17 21:00 96 26 132/66 94 Bi-pap 35 08/18/17 20:00 83 08/18/17 20:00 98.3 98 24 108/61 90 Nasal Cannula 3.0 08/18/17 19:25 92 27 95 Facial 30 08/18/17 19:22 92 28 95 Bi-pap 30 08/18/17 19:17 80 25 Nasal Cannula 5.0 40 08/18/17 19:12 Nasal Cannula 5.0 40 08/18/17 19:12 79 25 90 Nasal Cannula 5.0 40 08/18/17 19:12 90 Nasal Cannula 5.0 40 08/18/17 19:00 96 19 99/62 90 Nasal Cannula 4.0 08/18/17 18:00 96 19 115/72 90 Nasal Cannula 4.0 08/18/17 17:00 86 19 117/59 95 Nasal Cannula 4.0 08/18/17 16:00 98.0 80 18 123/71 90 Nasal Cannula 4.0 08/18/17 16:00 81 08/18/17 15:00 76 19 115/48 95 Nasal Cannula 4.0 08/18/17 14:00 85 20 111/53 95 Nasal Cannula 4.0 08/18/17 13:09 84 21 95 Nasal Cannula 4.0 36 08/18/17 13:00 80 20 124/75 95 Nasal Cannula 4.0 08/18/17 12:58 79 20 94 Nasal Cannula 4.0 36 08/18/17 12:55 Nasal Cannula 5.0 08/18/17 12:55 94 Nasal Cannula 5.0 08/18/17 12:55 Nasal Cannula 4.0 36 08/18/17 12:00 30 08/18/17 12:00 98.0 80 18 122/56 94 Mechanical Ventilator 30 08/18/17 12:00 79 08/18/17 11:03 76 27 30 08/18/17 11:00 75 19 123/72 95 Mechanical Ventilator 30 08/18/17 10:00 70 19 123/72 94 Mechanical Ventilator 30 Objective: Status: awake, alert, oriented Condition: improving HEENT: atraumatic, normocephalic, O2 4L via NC Lungs: clear with moderate air exchange , few isolated rales at bases Heart: HR/BP stable Abdomen: soft, non-tender - obese Extremities: no C/C/E, BLE with redness, edema, hot to touch Micro: Microbiology Date/Time Source Procedure Growth Status 08/17/17 12:35 Rectal Mucosa VRE Culture - Final NO VANCOMYCIN RESISTANT ENTEROCOCCUS ... Complete Accucheck: 93 Critical Care - Subjective Interval Events: extubated 08/17, on o2 via NC and at night was on BiPAP this ABG with mild hypercapnia troponin trending down, no chest pain creat down to 1.3 Condition: improving IV Access: peripheral FI02: 40 Vent Support Mode: CPAP Sputum Amount: None I&O: Intake and Output 08/18/17 08/19/17 19:00 07:00 Intake Total 96.25 ml Output Total 3510 ml 570 ml Balance -3413.75 ml -570 ml IV Total 96.25 ml Output Urine Total 3510 ml 570 ml Estefania Maloney NP ([facility]) Aug 19, 2017 09:48
[2017-08-19] MEDS ORDERED: NovoLOG Insulin Flexpen SUBQ SCH (11:30)
--- NOTE | 2017-08-19 11:51 | Nephrology Progress Note ---
Assessment/Plan Problem List: (1) Respiratory failure requiring intubation (2) Pulmonary hypertension (3) Morbid obesity with BMI of 40.0-44.9, adult (4) Acute renal failure Assessment Rising Cr ( acute renal failure) multifactorial: mainly aggresive treatment of underlying CHF other: DM , Sepsis... Peoteinuria, HypoAlbuminemia, r/o Nephrotic Syndrom Cr lower today conditions: acute hypoxemic hypercapnic RF requiring intubation elevated troponin possible NSTEMI pulmonary edema - CHF exacerbation pulmonary arterial HTN possible sepsis ,possible PNA, cellulitis BLE elevated D dimer morbid obesity COPD/asthma DM HTN Hyperlipidemia hx of DIANN elevated TSH Plan Sugg: Cardiac and pulmonary Optimization- Avoid Nephrotoxics- Monitor renal parameters correct electrolytes keep BP and BS under control Urine studies Subjective ROS Limited/Unobtainable: No Constitutional: Reports: malaise, other - now extubated Objective Objective Last 24 Hour Vital Signs Date Time Temp Pulse Resp B/P (MAP) Pulse Ox O2 Delivery O2 Flow Rate FiO2 08/19/17 10:00 71 26 88/55 97 Nasal Cannula 4.0 08/19/17 09:00 87 16 128/47 98 Nasal Cannula 4.0 08/19/17 08:48 89 120/68 08/19/17 08:00 68 08/19/17 08:00 77 24 120/68 92 Nasal Cannula 4.0 08/19/17 07:33 88 22 95 Nasal Cannula 5.0 40 08/19/17 07:26 95 Nasal Cannula 5.0 40 08/19/17 07:26 Nasal Cannula 5.0 40 08/19/17 07:26 76 25 95 Nasal Cannula 5.0 40 08/19/17 07:00 97.8 76 26 85/67 94 Nasal Cannula 4.0 08/19/17 06:00 70 24 99/63 94 Bi-pap 35 08/19/17 05:13 68 26 94 Facial 35 08/19/17 05:00 69 24 99/69 93 Bi-pap 35 08/19/17 04:00 68 08/19/17 04:00 98.2 62 24 103/65 93 Bi-pap 35 08/19/17 03:00 68 24 98/65 92 Bi-pap 35 08/19/17 02:38 66 24 93 Facial 35 08/19/17 02:00 72 26 101/50 92 Bi-pap 35 08/19/17 01:00 72 22 110/74 94 Bi-pap 35 08/19/17 00:45 81 29 92 Facial 35 08/19/17 00:00 65 08/19/17 00:00 98.5 78 22 118/82 94 Bi-pap 35 08/18/17 23:00 78 22 117/61 94 Bi-pap 35 08/18/17 22:38 69 28 92 Facial 35 08/18/17 22:00 84 24 118/62 94 Bi-pap 35 08/18/17 21:30 81 132/66 08/18/17 21:05 89 29 93 Facial 35 08/18/17 21:00 96 26 132/66 94 Bi-pap 35 08/18/17 20:00 83 08/18/17 20:00 98.3 98 24 108/61 90 Nasal Cannula 3.0 08/18/17 19:25 92 27 95 Facial 30 08/18/17 19:22 92 28 95 Bi-pap 30 08/18/17 19:17 80 25 Nasal Cannula 5.0 40 08/18/17 19:12 Nasal Cannula 5.0 40 08/18/17 19:12 79 25 90 Nasal Cannula 5.0 40 08/18/17 19:12 90 Nasal Cannula 5.0 40 08/18/17 19:00 96 19 99/62 90 Nasal Cannula 4.0 08/18/17 18:00 96 19 115/72 90 Nasal Cannula 4.0 08/18/17 17:00 86 19 117/59 95 Nasal Cannula 4.0 08/18/17 16:00 98.0 80 18 123/71 90 Nasal Cannula 4.0 08/18/17 16:00 81 08/18/17 15:00 76 19 115/48 95 Nasal Cannula 4.0 08/18/17 14:00 85 20 111/53 95 Nasal Cannula 4.0 08/18/17 13:09 84 21 95 Nasal Cannula 4.0 36 08/18/17 13:00 80 20 124/75 95 Nasal Cannula 4.0 08/18/17 12:58 79 20 94 Nasal Cannula 4.0 36 08/18/17 12:55 Nasal Cannula 5.0 08/18/17 12:55 94 Nasal Cannula 5.0 08/18/17 12:55 Nasal Cannula 4.0 36 08/18/17 12:00 30 08/18/17 12:00 98.0 80 18 122/56 94 Mechanical Ventilator 30 08/18/17 12:00 79 Intake and Output 08/18/17 08/19/17 19:00 07:00 Intake Total 96.25 ml Output Total 3510 ml 570 ml Balance -3413.75 ml -570 ml IV Total 96.25 ml Output Urine Total 3510 ml 570 ml Laboratory Tests 08/19/17 05:00: White Blood Count 9.3, Red Blood Count 5.59H, Hemoglobin 16.1H, Hematocrit 53.7H , Mean Corpuscular Volume 96, Mean Corpuscular Hemoglobin 28.8, Mean Corpuscular Hemoglobin Concent 30.0L, Red Cell Distribution Width 14.6, Platelet Count 161, Mean Platelet Volume 8.3, Neutrophils (%) (Auto) 70.6, Lymphocytes (%) (Auto) 17.7L, Monocytes (%) (Auto) 10.1H, Eosinophils (%) (Auto ) 0.7, Basophils (%) (Auto) 1.0, Sodium Level 142, Potassium Level 3.5, Chloride Level 98, Carbon Dioxide Level 41*H, Anion Gap 3L, Blood Urea Nitrogen 21H, Creatinine 1.3, Estimat Glomerular Filtration Rate 41.9, Glucose Level 86, Uric Acid 8.0H, Calcium Level 8.2L, Phosphorus Level 4.1, Magnesium Level 1.9, Total Bilirubin 1.6H, Direct Bilirubin 0.3, Gamma Glutamyl Transpeptidase 13, Aspartate Amino Transf (AST/SGOT) 25, Alanine Aminotransferase (ALT/SGPT) 11L, Alkaline Phosphatase 72, Total Creatine Kinase 101, Troponin I 0.442H, C- Reactive Protein, Quantitative 3.8H, Pro-B-Type Natriuretic Peptide 234H, Total Protein 7.8, Albumin 2.9L, Globulin 4.9, Albumin/Globulin Ratio 0.6L, Free Thyroxine 1.41 08/19/17 08:53: Arterial Blood pH 7.485H, Arterial Blood Partial Pressure CO2 47.9H, Arterial Blood Partial Pressure O2 56.9L, Arterial Blood HCO3 35.3H, Arterial Blood Oxygen Saturation 90.7L, Arterial Blood Base Excess 10.1, Ajay Test Positive Height (Feet): 5 Height (Inches): 11.00 Weight (Pounds): 199 General Appearance: mild distress Cardiovascular: normal rate Respiratory/Chest: decreased breath sounds Abdomen: other - obese LEONOR GENTILE Aug 19, 2017 11:51
[2017-08-19] MEDS ORDERED: Albuterol/Ipratropium 3ml neb HHN PRN (12:15)
--- NOTE | 2017-08-19 12:29 | Diagnostic Imaging Report ---
Indication: Dyspnea Comparison: 08/18/2017 A single view chest radiograph was obtained. Findings: Endotracheal tube has been removed. The roberto carlos are prominent which is probably vascular in nature. Pulmonary artery hypertension is of particular concern. Heart is enlarged as well. The lungs remain clear. Bones are osteopenic. IMPRESSION: No change from the prior day. Patient has been extubated
[2017-08-19] MEDS: cefTRIAXone 1 GM in D5W 55 ML IVPB SCH (13:39)
--- NOTE | 2017-08-19 22:11 | General Progress Note ---
Assessment/Plan Assessment/Plan ASSESSMENT AND RECOMMENDATIONS: 1. Respiratory failure, status post intubation. She has been seen by Pulmonary team. Continue to closely monitor. 2. Non-ST elevation myocardial infarction,has been seen by cloth grader Dr. Villalobos. no evidence of pulmonary embolism 3. Pulmonary hypertension. Diuresis. Evaluation per Pulmonary team. 4. CHF exacerbation 5. Erythrocytosis, reactive Subjective Allergies: Coded Allergies: No Known Allergies (Unverified , 08/16/17) All Systems: reviewed and negative except above Subjective no leukocytosis Objective Last 24 Hour Vital Signs Date Time Temp Pulse Resp B/P (MAP) Pulse Ox O2 Delivery O2 Flow Rate FiO2 08/19/17 20:46 80 100/50 08/19/17 20:00 97.3 80 19 100/50 99 Nasal Cannula 4.0 08/19/17 19:47 88 20 94 Nasal Cannula 2.0 28 08/19/17 19:40 88 22 94 Nasal Cannula 2.0 28 08/19/17 18:36 94 Nasal Cannula 2.0 28 08/19/17 18:36 Nasal Cannula 2.0 28 08/19/17 16:00 82 08/19/17 16:00 98.1 74 19 107/44 93 Nasal Cannula 4.0 08/19/17 13:33 80 22 96 Nasal Cannula 4.0 36 08/19/17 13:26 78 22 96 Nasal Cannula 4.0 36 08/19/17 12:00 98.0 72 20 120/76 97 Nasal Cannula 4.0 08/19/17 12:00 64 08/19/17 10:00 71 26 88/55 97 Nasal Cannula 4.0 08/19/17 09:00 87 16 128/47 98 Nasal Cannula 4.0 08/19/17 08:48 89 120/68 08/19/17 08:00 68 08/19/17 08:00 77 24 120/68 92 Nasal Cannula 4.0 08/19/17 07:33 88 22 95 Nasal Cannula 5.0 40 08/19/17 07:26 95 Nasal Cannula 5.0 40 08/19/17 07:26 Nasal Cannula 5.0 40 08/19/17 07:26 76 25 95 Nasal Cannula 5.0 40 08/19/17 07:00 97.8 76 26 85/67 94 Nasal Cannula 4.0 08/19/17 06:00 70 24 99/63 94 Bi-pap 35 08/19/17 05:13 68 26 94 Facial 35 08/19/17 05:00 69 24 99/69 93 Bi-pap 35 08/19/17 04:00 68 08/19/17 04:00 98.2 62 24 103/65 93 Bi-pap 35 08/19/17 03:00 68 24 98/65 92 Bi-pap 35 08/19/17 02:38 66 24 93 Facial 35 08/19/17 02:00 72 26 101/50 92 Bi-pap 35 08/19/17 01:00 72 22 110/74 94 Bi-pap 35 08/19/17 00:45 81 29 92 Facial 35 08/19/17 00:00 65 08/19/17 00:00 98.5 78 22 118/82 94 Bi-pap 35 08/18/17 23:00 78 22 117/61 94 Bi-pap 35 08/18/17 22:38 69 28 92 Facial 35 Intake and Output 08/18/17 08/19/17 19:00 07:00 Intake Total 96.25 ml Output Total 3510 ml 570 ml Balance -3413.75 ml -570 ml IV Total 96.25 ml Output Urine Total 3510 ml 570 ml Laboratory Tests 08/19/17 05:00: White Blood Count 9.3, Red Blood Count 5.59H, Hemoglobin 16.1H, Hematocrit 53.7H , Mean Corpuscular Volume 96, Mean Corpuscular Hemoglobin 28.8, Mean Corpuscular Hemoglobin Concent 30.0L, Red Cell Distribution Width 14.6, Platelet Count 161, Mean Platelet Volume 8.3, Neutrophils (%) (Auto) 70.6, Lymphocytes (%) (Auto) 17.7L, Monocytes (%) (Auto) 10.1H, Eosinophils (%) (Auto ) 0.7, Basophils (%) (Auto) 1.0, Sodium Level 142, Potassium Level 3.5, Chloride Level 98, Carbon Dioxide Level 41*H, Anion Gap 3L, Blood Urea Nitrogen 21H, Creatinine 1.3, Estimat Glomerular Filtration Rate 41.9, Glucose Level 86, Uric Acid 8.0H, Calcium Level 8.2L, Phosphorus Level 4.1, Magnesium Level 1.9, Total Bilirubin 1.6H, Direct Bilirubin 0.3, Gamma Glutamyl Transpeptidase 13, Aspartate Amino Transf (AST/SGOT) 25, Alanine Aminotransferase (ALT/SGPT) 11L, Alkaline Phosphatase 72, Total Creatine Kinase 101, Troponin I 0.442H, C- Reactive Protein, Quantitative 3.8H, Pro-B-Type Natriuretic Peptide 234H, Total Protein 7.8, Albumin 2.9L, Globulin 4.9, Albumin/Globulin Ratio 0.6L, Free Thyroxine 1.41 08/19/17 08:53: Arterial Blood pH 7.485H, Arterial Blood Partial Pressure CO2 47.9H, Arterial Blood Partial Pressure O2 56.9L, Arterial Blood HCO3 35.3H, Arterial Blood Oxygen Saturation 90.7L, Arterial Blood Base Excess 10.1, Ajay Test Positive Height (Feet): 5 Height (Inches): 11.00 Weight (Pounds): 199 General Appearance: no apparent distress EENT: normal ENT inspection Neck: non-tender Cardiovascular: normal peripheral pulses Abdomen: normal bowel sounds Edema: trace edema Dick Lee Aug 19, 2017 22:11
[2017-08-20] VITALS: BP 94/50
[2017-08-20 04:00] VITALS: BP 103/73
[2017-08-20 04:48] LABS: BASOPHILS % (AUTO) 0.8 % (0.0-2.0); EOSINOPHILS % (AUTO) 1.5 % (0.0-3.0); HEMATOCRIT 54.4 % (37.0-47.0); HEMOGLOBIN 16.8 G/DL (12.0-16.0); MEAN CORPUSCULAR VOLUME 97 FL (80-99); MONOCYTES % (AUTO) 8.9 % (1.0-10.0); NEUTROPHILS % (AUTO) 67.9 % (45.0-75.0); PLATELET COUNT 180 K/UL (150-450); RED BLOOD COUNT 5.58 M/UL (4.20-5.40); RED CELL DISTRIBUTION WIDTH 14.2 % (11.6-14.8); WHITE BLOOD COUNT 10.8 K/UL (4.8-10.8)
[2017-08-20 05:20] LABS: ANION GAP 9 mmol/L (5-15); BLOOD UREA NITROGEN 27 mg/dL (7-18); CALCIUM 7.9 MG/DL (8.5-10.1); CARBON DIOXIDE 37 MMOL/L (21-32); CHLORIDE 96 MMOL/L (98-107); CREATININE 1.4 MG/DL (0.55-1.30); POTASSIUM 3.1 MMOL/L (3.5-5.1); SODIUM 141 MMOL/L (136-145)
[2017-08-20] MEDS: Albuterol/Ipratropium 3ml neb INH SCH ×3 (07:17→21:58)
[2017-08-20 08:00] VITALS: BP 120/71
--- NOTE | 2017-08-20 08:23 | Infectious Diseases Prog Note ---
Assessment/Plan Assessment/Plan Abx: IV Vanco 08/17-08/18 Ceftriaxone 08/18- Zosyn 08/17-08/18 Levaquin x1 08/17 Assessment: Acute hypercapneic/hypoxic respiratory failure s/p intubation 08/17; extubated 08/18- likely due to CHF exacerbation with possible COPD exacerbation -? PNA- no obvious infiltrates on CXR -CXR 08/18: Improving basilar parenchymal infiltrates versus edema, over one day -CTA chest: No evidence of pulmonary embolus, aortic dissection or aneurysm. Evidence of pulmonary artery hypertension. Moderate cardiomegaly. Reflux contrast into the IVC. Right heart failure versus tricuspid regurgitation. Posterior basilar atelectasis and trace pleural effusions. -CXR : Moderate pulmonary edema afebrile, no leukocytosis Lactic acidosis- resolved -u/a no pyuria B/L LE chronic venous stasis changes- no cellulitis ALIYAH Troponinemia pHTN COPD on home O2 2l NC CHF DM2 Plan: -Continue Ceftriaxone #3(abx #4/5) for possible PNA ; upon discharge can be transitioned to PO Cefdinir to complete course -08/18 SP Zosyn and Vanco #2 -f/u cx -Monitor CBC/CMP, temperatures Thank your for this consultation. Will continue to follow along with you. Discussed with RN Subjective Allergies: Coded Allergies: No Known Allergies (Unverified , 08/16/17) Subjective afebrile no leukocytosis transferred to the floors on 3 L NC Objective Vital Signs Last 24 Hour Vital Signs Date Time Temp Pulse Resp B/P (MAP) Pulse Ox O2 Delivery O2 Flow Rate FiO2 08/20/17 07:28 85 20 96 Nasal Cannula 3.0 32 08/20/17 07:18 95 Nasal Cannula 3.0 32 08/20/17 07:18 81 20 95 Nasal Cannula 3.0 32 08/20/17 07:18 Nasal Cannula 3.0 32 08/20/17 04:00 97.3 89 20 103/73 99 Nasal Cannula 4.0 08/20/17 04:00 89 08/20/17 00:00 97.9 80 19 94/50 99 Nasal Cannula 4.0 08/20/17 00:00 85 08/19/17 20:46 80 100/50 08/19/17 20:00 97.3 80 19 100/50 99 Nasal Cannula 4.0 08/19/17 20:00 88 08/19/17 19:47 88 20 94 Nasal Cannula 2.0 08/19/17 19:40 88 22 94 Nasal Cannula 2.0 08/19/17 18:36 94 Nasal Cannula 2.0 08/19/17 18:36 Nasal Cannula 2.0 08/19/17 16:00 82 08/19/17 16:00 98.1 74 19 107/44 93 Nasal Cannula 4.0 08/19/17 13:33 80 22 96 Nasal Cannula 4.0 36 08/19/17 13:26 78 22 96 Nasal Cannula 4.0 36 08/19/17 12:00 98.0 72 20 120/76 97 Nasal Cannula 4.0 08/19/17 12:00 64 08/19/17 10:00 71 26 88/55 97 Nasal Cannula 4.0 08/19/17 09:00 87 16 128/47 98 Nasal Cannula 4.0 08/19/17 08:48 89 120/68 Height (Feet): 5 Height (Inches): 11.00 Weight (Pounds): 199 Objective GENERAL: No acute distress. VITAL SIGNS: Reviewed. PULMONARY: Decreased breath sounds. Status post intubation. CARDIOVASCULAR: Regular rate. No S3 or S4. ABDOMEN: Soft, nontender, and nondistended. EXTREMITIES: A 1+ edema. b/l leg chornic venous stasis changes Microbiology Date/Time Source Procedure Growth Status 08/18/17 17:00 Sputum Gram Stain - Final Resulted 08/18/17 17:00 Sputum Sputum Culture Pending Resulted 08/17/17 12:35 Nasal Nares MRSA Culture - Final NO METHICILLIN RESISTANT STAPH AUREUS... Complete 08/17/17 12:35 Rectal Mucosa VRE Culture - Final NO VANCOMYCIN RESISTANT ENTEROCOCCUS ... Complete Laboratory Tests Test 08/19/17 08:53 08/20/17 03:35 Arterial Blood pH 7.485 (7.350-7.450) Arterial Blood Partial Pressure CO2 47.9 mmHg (35.0-45.0) H Arterial Blood Partial Pressure O2 56.9 mmHg (75.0-100.0) L Arterial Blood HCO3 35.3 mmol/L (22.0-26.0) H Arterial Blood Oxygen Saturation 90.7 % (92.0-98.0) L Arterial Blood Base Excess 10.1 Ajay Test Positive White Blood Count 10.8 K/UL (4.8-10.8) Red Blood Count 5.58 M/UL (4.20-5.40) H Hemoglobin 16.8 G/DL (12.0-16.0) H Hematocrit 54.4 % (37.0-47.0) H Mean Corpuscular Volume 97 FL (80-99) Mean Corpuscular Hemoglobin 30.1 PG (27.0-31.0) Mean Corpuscular Hemoglobin Concent 30.8 G/DL (32.0-36.0) L Red Cell Distribution Width 14.2 % (11.6-14.8) Platelet Count 180 K/UL (150-450) Mean Platelet Volume 8.1 FL (6.5-10.1) Neutrophils (%) (Auto) 67.9 % (45.0-75.0) Lymphocytes (%) (Auto) 21.0 % (20.0-45.0) Monocytes (%) (Auto) 8.9 % (1.0-10.0) Eosinophils (%) (Auto) 1.5 % (0.0-3.0) Basophils (%) (Auto) 0.8 % (0.0-2.0) Sodium Level 141 MMOL/L (136-145) Potassium Level 3.1 MMOL/L (3.5-5.1) L Chloride Level 96 MMOL/L (98-107) L Carbon Dioxide Level 37 MMOL/L (21-32) H Anion Gap 9 mmol/L (5-15) Blood Urea Nitrogen 27 mg/dL (7-18) H Creatinine 1.4 MG/DL (0.55-1.30) H Estimat Glomerular Filtration Rate 38.5 mL/min (>60) Glucose Level 102 MG/DL (74-106) Calcium Level 7.9 MG/DL (8.5-10.1) L Pro-B-Type Natriuretic Peptide 227 pg/mL (0-125) H Current Medications Medications (Trade) Dose Ordered Sig/Jenny Route PRN Reason Start Time Stop Time Status Last Admin Dose Admin Albuterol/ Ipratropium (Albuterol/ Ipratropium) 3 ml Q4H PRN HHN sob 08/19/17 12:15 08/22/17 16:14 Albuterol/ Ipratropium (Albuterol/ Ipratropium) 3 ml TIDRT INH 08/19/17 13:00 08/22/17 18:59 08/20/17 07:17 Aspirin (ASA) 81 mg DAILY NG 08/20/17 09:00 09/16/17 19:59 Atorvastatin Calcium (Lipitor) 20 mg BEDTIME ORAL 08/19/17 21:00 09/17/17 20:59 08/19/17 20:47 Ceftriaxone Sodium 1 gm/ Dextrose 55 ml @ 110 mls/hr Q24H IVPB 08/19/17 14:00 08/25/17 13:59 08/19/17 13:39 Dextrose (Dextrose 50%) STAT PRN IV Hypoglycemia 08/20/17 09:00 09/17/17 08:59 Enoxaparin Sodium (Lovenox) 90 mg EVERY 12 HOURS SUBQ 08/19/17 21:00 09/16/17 20:59 08/19/17 21:24 Metoprolol Tartrate (Lopressor) 25 mg Q12HR NG 08/19/17 21:00 09/17/17 20:59 Pantoprazole (Protonix) 40 mg DAILY IVP 08/20/17 09:00 09/17/17 08:59 Parisa Lackey M.D. Aug 20, 2017 08:23
[2017-08-20] MEDS: Pantoprazole Inj IVP SCH (08:28)
[2017-08-20] MEDS: Aspirin Baby 81mg NG SCH (08:28)
[2017-08-20] MEDS: Metoprolol Tartrate 12.5mg TAB NG SCH ×2 (08:31→21:02)
[2017-08-20] MEDS: Enoxaparin Sodium 300mg/3ml vial SUBQ SCH ×2 (11:00→21:51)
[2017-08-20 12:00] VITALS: BP 130/77
[2017-08-20] MEDS: cefTRIAXone 1 GM in D5W 55 ML IVPB SCH (13:34)
--- NOTE | 2017-08-20 14:10 | Cardiology Progress Note ---
Assessment/Plan Problem List: (1) Pulmonary hypertension (2) Acute exacerbation of CHF (congestive heart failure) (3) NSTEMI, initial episode of care (4) Morbid obesity with BMI of 40.0-44.9, adult (5) Respiratory failure requiring intubation Status: stable, progressing Status Narrative Mrs. Hilario has improved clinically and was successfully extubated on 08/18. She has pulmonary hypertension -? cause. She has diuresed significantly w/ IV lasix and is now w/ prerenal azotemia. Troponin levels are decreasing. EKG shows deeply inverted anterior T waves c/w ischemia or nonSTEMI. However, old ekg not available for comparison. ECHO - technically difficult. Wall motion not assessed. Assessment/Plan Continue aspirin, statin, metoprolol. Hold further diuretics. Stress nuclear study to r/o ischemia (adenosine, pharmacologic stress) Evaluation for cause of pulm hypertension per primary team- ? SESAR, RF ?. Pt states no COPD. No evidence for cardiac cause for pulm hypertension or chronic PEs Subjective ROS Limited/Unobtainable: No Subjective Cardiology for Dr. Tao Pt transferred out of ICU. Ambulating in room Objective Last 24 Hour Vital Signs Date Time Temp Pulse Resp B/P (MAP) Pulse Ox O2 Delivery O2 Flow Rate FiO2 08/20/17 13:08 75 20 97 Nasal Cannula 3.0 32 08/20/17 12:58 78 20 94 Nasal Cannula 3.0 32 08/20/17 12:00 97.8 80 18 130/77 97 Nasal Cannula 4.0 08/20/17 08:31 96 120/71 08/20/17 08:00 92 08/20/17 08:00 98.3 96 18 120/71 98 Nasal Cannula 4.0 08/20/17 07:28 85 20 96 Nasal Cannula 3.0 32 08/20/17 07:18 95 Nasal Cannula 3.0 32 08/20/17 07:18 81 20 95 Nasal Cannula 3.0 32 08/20/17 07:18 Nasal Cannula 3.0 32 08/20/17 04:00 97.3 89 20 103/73 99 Nasal Cannula 4.0 08/20/17 04:00 89 08/20/17 00:00 97.9 80 19 94/50 99 Nasal Cannula 4.0 08/20/17 00:00 85 08/19/17 20:46 80 100/50 08/19/17 20:00 97.3 80 19 100/50 99 Nasal Cannula 4.0 08/19/17 20:00 88 08/19/17 19:47 88 20 94 Nasal Cannula 2.0 08/19/17 19:40 88 22 94 Nasal Cannula 2.0 08/19/17 18:36 94 Nasal Cannula 2.0 08/19/17 18:36 Nasal Cannula 2.0 08/19/17 16:00 82 08/19/17 16:00 98.1 74 19 107/44 93 Nasal Cannula 4.0 General Appearance: WD/WN, no apparent distress, obese EENT: PERRL/EOMI Neck: no JVD Rhythm: NSR Cardiovascular: normal rate, regular rhythm, no gallop/murmur Respiratory/Chest: other - few basilar crackles Abdomen: normal bowel sounds, non tender, soft Extremities: no swelling Intake and Output 08/19/17 08/20/17 19:00 07:00 Intake Total 175 ml Output Total 390 ml Balance -215 ml Intake Oral 120 ml IV Total 55 ml Output Urine Total 390 ml Laboratory Tests Test 08/20/17 03:35 08/20/17 11:25 White Blood Count 10.8 K/UL (4.8-10.8) Red Blood Count 5.58 M/UL (4.20-5.40) H Hemoglobin 16.8 G/DL (12.0-16.0) H Hematocrit 54.4 % (37.0-47.0) H Mean Corpuscular Volume 97 FL (80-99) Mean Corpuscular Hemoglobin 30.1 PG (27.0-31.0) Mean Corpuscular Hemoglobin Concent 30.8 G/DL (32.0-36.0) L Red Cell Distribution Width 14.2 % (11.6-14.8) Platelet Count 180 K/UL (150-450) Mean Platelet Volume 8.1 FL (6.5-10.1) Neutrophils (%) (Auto) 67.9 % (45.0-75.0) Lymphocytes (%) (Auto) 21.0 % (20.0-45.0) Monocytes (%) (Auto) 8.9 % (1.0-10.0) Eosinophils (%) (Auto) 1.5 % (0.0-3.0) Basophils (%) (Auto) 0.8 % (0.0-2.0) Sodium Level 141 MMOL/L (136-145) Potassium Level 3.1 MMOL/L (3.5-5.1) L Chloride Level 96 MMOL/L (98-107) L Carbon Dioxide Level 37 MMOL/L (21-32) H Anion Gap 9 mmol/L (5-15) Blood Urea Nitrogen 27 mg/dL (7-18) H Creatinine 1.4 MG/DL (0.55-1.30) H Estimat Glomerular Filtration Rate 38.5 mL/min (>60) Glucose Level 102 MG/DL (74-106) Calcium Level 7.9 MG/DL (8.5-10.1) L Pro-B-Type Natriuretic Peptide 227 pg/mL (0-125) H Arterial Blood pH 7.424 (7.350-7.450) Arterial Blood Partial Pressure CO2 62.2 mmHg (35.0-45.0) *H Arterial Blood Partial Pressure O2 88.5 mmHg (75.0-100.0) Arterial Blood HCO3 39.8 mmol/L (22.0-26.0) H Arterial Blood Oxygen Saturation 96.6 % (92.0-98.0) Arterial Blood Base Excess 12.1 Ajay Test Positive Microbiology Date/Time Source Procedure Growth Status 08/18/17 17:00 Sputum Gram Stain - Final Resulted 08/18/17 17:00 Sputum Sputum Culture Pending Resulted HOSSEIN LOVE Aug 20, 2017 14:10
[2017-08-20 16:00] VITALS: BP 115/72
[2017-08-20 20:00] VITALS: BP 110/62
--- NOTE | 2017-08-20 20:04 | General Progress Note ---
Assessment/Plan Assessment/Plan ASSESSMENT AND RECOMMENDATIONS: 1. Respiratory failure, s/p intubation and extubation likely due to chf exacerbation 2. Non-ST elevation myocardial infarction,has been seen by internet architect Dr. Villalobos. no evidence of pulmonary embolism 3. Pulmonary hypertension. Diuresis. Evaluation per Pulmonary team. 4. CHF exacerbation 5. Erythrocytosis, reactive Subjective Allergies: Coded Allergies: No Known Allergies (Unverified , 08/16/17) All Systems: reviewed and negative except above Subjective afebrile Objective Last 24 Hour Vital Signs Date Time Temp Pulse Resp B/P (MAP) Pulse Ox O2 Delivery O2 Flow Rate FiO2 08/20/17 16:00 74 08/20/17 16:00 97.8 73 18 115/72 92 Nasal Cannula 3.0 08/20/17 13:08 75 20 97 Nasal Cannula 3.0 32 08/20/17 12:58 78 20 94 Nasal Cannula 3.0 32 08/20/17 12:00 97.8 80 18 130/77 97 Nasal Cannula 4.0 08/20/17 12:00 77 08/20/17 08:31 96 120/71 08/20/17 08:00 92 08/20/17 08:00 98.3 96 18 120/71 98 Nasal Cannula 4.0 08/20/17 07:28 85 20 96 Nasal Cannula 3.0 32 08/20/17 07:18 95 Nasal Cannula 3.0 32 08/20/17 07:18 81 20 95 Nasal Cannula 3.0 32 08/20/17 07:18 Nasal Cannula 3.0 32 08/20/17 04:00 97.3 89 20 103/73 99 Nasal Cannula 4.0 08/20/17 04:00 89 08/20/17 00:00 97.9 80 19 94/50 99 Nasal Cannula 4.0 08/20/17 00:00 85 08/19/17 20:46 80 100/50 Intake and Output 08/19/17 08/20/17 19:00 07:00 Intake Total 175 ml Output Total 390 ml Balance -215 ml Intake Oral 120 ml IV Total 55 ml Output Urine Total 390 ml Laboratory Tests 08/20/17 03:35: White Blood Count 10.8, Red Blood Count 5.58H, Hemoglobin 16.8H, Hematocrit 54.4H, Mean Corpuscular Volume 97, Mean Corpuscular Hemoglobin 30.1, Mean Corpuscular Hemoglobin Concent 30.8L, Red Cell Distribution Width 14.2, Platelet Count 180, Mean Platelet Volume 8.1, Neutrophils (%) (Auto) 67.9, Lymphocytes (%) (Auto) 21.0, Monocytes (%) (Auto) 8.9, Eosinophils (%) (Auto) 1.5, Basophils (%) (Auto) 0.8, Sodium Level 141, Potassium Level 3.1L, Chloride Level 96L, Carbon Dioxide Level 37H, Anion Gap 9, Blood Urea Nitrogen 27H, Creatinine 1.4H, Estimat Glomerular Filtration Rate 38.5, Glucose Level 102, Calcium Level 7.9L, Pro-B-Type Natriuretic Peptide 227H 08/20/17 11:25: Arterial Blood pH 7.424, Arterial Blood Partial Pressure CO2 62.2*H, Arterial Blood Partial Pressure O2 88.5, Arterial Blood HCO3 39.8H, Arterial Blood Oxygen Saturation 96.6, Arterial Blood Base Excess 12.1, Ajay Test Positive Height (Feet): 5 Height (Inches): 11.00 Weight (Pounds): 199 General Appearance: no apparent distress EENT: normal ENT inspection Neck: normal alignment Cardiovascular: normal peripheral pulses Respiratory/Chest: chest wall non-tender Pelvis: normal external exam Extremities: normal range of motion Skin: normal pigmentation Dick Lee Aug 20, 2017 20:04
[2017-08-21] VITALS: BP 115/62
[2017-08-21 04:00] VITALS: BP 111/71
[2017-08-21 08:00] VITALS: BP 146/70
[2017-08-21] MEDS: Albuterol/Ipratropium 3ml neb INH SCH ×3 (08:51→18:40)
[2017-08-21] MEDS: Metoprolol Tartrate 12.5mg TAB NG SCH ×2 (09:05→21:00)
[2017-08-21] MEDS: Pantoprazole Inj IVP SCH (09:05)
[2017-08-21] MEDS: Aspirin Baby 81mg NG SCH (09:05)
[2017-08-21] MEDS: Enoxaparin Sodium 300mg/3ml vial SUBQ SCH ×2 (09:44→20:49)
--- NOTE | 2017-08-21 11:04 | Nephrology Progress Note ---
Assessment/Plan Problem List: (1) Respiratory failure requiring intubation (2) Pulmonary hypertension (3) Morbid obesity with BMI of 40.0-44.9, adult (4) Acute renal failure Assessment Rising Cr ( acute renal failure) multifactorial: mainly aggresive treatment of underlying CHF other: DM , Sepsis... Peoteinuria, HypoAlbuminemia, r/o Nephrotic Syndrom Cr 1.4 as of 08/20 conditions: acute hypoxemic hypercapnic RF requiring intubation elevated troponin possible NSTEMI pulmonary edema - CHF exacerbation pulmonary arterial HTN possible sepsis ,possible PNA, cellulitis BLE elevated D dimer morbid obesity COPD/asthma DM HTN Hyperlipidemia hx of DIANN elevated TSH Plan Sugg: no labs today Cardiac and pulmonary Optimization- Avoid Nephrotoxics- Monitor renal parameters correct electrolytes keep BP and BS under control Urine studies Subjective ROS Limited/Unobtainable: No Constitutional: Reports: malaise Objective Objective Last 24 Hour Vital Signs Date Time Temp Pulse Resp B/P (MAP) Pulse Ox O2 Delivery O2 Flow Rate FiO2 08/21/17 09:05 65 146/70 08/21/17 09:02 84 20 98 Nasal Cannula 5.0 08/21/17 08:51 65 22 94 Nasal Cannula 4.0 08/21/17 08:48 Nasal Cannula 4.0 08/21/17 08:47 94 Nasal Cannula 4.0 08/21/17 08:00 59 08/21/17 08:00 97.0 69 18 146/70 99 Bi-pap 45 08/21/17 05:23 77 20 93 Facial 3.0 45 08/21/17 04:20 75 20 94 Facial 45 08/21/17 04:00 71 08/21/17 04:00 97.5 89 19 111/71 97 Nasal Cannula 3.0 08/21/17 00:00 97.0 76 20 115/62 97 Nasal Cannula 3.0 08/21/17 00:00 74 08/20/17 23:04 77 20 94 3.0 35 08/20/17 23:01 74 20 92 Bi-pap 35 08/20/17 21:58 32 08/20/17 21:57 74 20 92 Nasal Cannula 3.0 32 08/20/17 21:57 Nasal Cannula 3.0 32 08/20/17 21:56 92 Nasal Cannula 3.0 32 08/20/17 21:02 74 115/72 08/20/17 20:00 69 08/20/17 20:00 97.0 76 20 110/62 97 Nasal Cannula 3.0 08/20/17 16:00 74 08/20/17 16:00 97.8 73 18 115/72 92 Nasal Cannula 3.0 08/20/17 13:08 75 20 97 Nasal Cannula 3.0 32 08/20/17 12:58 78 20 94 Nasal Cannula 3.0 32 08/20/17 12:00 97.8 80 18 130/77 97 Nasal Cannula 4.0 08/20/17 12:00 77 Intake and Output 08/20/17 08/21/17 19:00 07:00 Intake Total 1000 ml Balance 1000 ml Intake Oral 1000 ml # Voids 4 Laboratory Tests 08/20/17 11:25: Arterial Blood pH 7.424, Arterial Blood Partial Pressure CO2 62.2*H, Arterial Blood Partial Pressure O2 88.5, Arterial Blood HCO3 39.8H, Arterial Blood Oxygen Saturation 96.6, Arterial Blood Base Excess 12.1, Ajay Test Positive Height (Feet): 5 Height (Inches): 11.00 Weight (Pounds): 199 General Appearance: no apparent distress Objective no change in PE LEONOR GENTILE Aug 21, 2017 11:04
[2017-08-21 12:00] VITALS: BP 124/67
[2017-08-21] MEDS: cefTRIAXone 1 GM in D5W 55 ML IVPB SCH (13:29)
--- NOTE | 2017-08-21 13:40 | Cardiology Progress Note ---
Assessment/Plan Problem List: (1) Pulmonary hypertension (2) Acute exacerbation of CHF (congestive heart failure) (3) NSTEMI, initial episode of care (4) Morbid obesity with BMI of 40.0-44.9, adult (5) Respiratory failure requiring intubation Status: stable, progressing Status Narrative Mrs. Hilario has improved clinically and was successfully extubated on 08/18. She has pulmonary hypertension -? cause. She has diuresed significantly w/ IV lasix and is now w/ prerenal azotemia and hypokalemia Troponin levels are decreasing. EKG shows deeply inverted anterior T waves c/w ischemia or nonSTEMI. However, old ekg not available for comparison. ECHO - technically difficult. Wall motion not assessed. Assessment/Plan Continue aspirin, statin, metoprolol. Hold further diuretics and repeat labs Stress nuclear study to r/o ischemia (adenosine, pharmacologic stress), given troponin levels and EKG findings Evaluation for cause of pulm hypertension per primary team- ? SESAR, RF ?. ? interstitial or other primary lung disease Pt states no COPD. No evidence for cardiac cause for pulm hypertension or chronic PEs Subjective ROS Limited/Unobtainable: No Subjective Cardiology for Dr. Tao No chest pain. Pt w/ exertional dyspnea Objective Last 24 Hour Vital Signs Date Time Temp Pulse Resp B/P (MAP) Pulse Ox O2 Delivery O2 Flow Rate FiO2 08/21/17 13:25 61 20 98 Nasal Cannula 4.0 08/21/17 12:00 62 08/21/17 12:00 97.9 62 18 124/67 99 Nasal Cannula 3.0 08/21/17 09:05 65 146/70 08/21/17 09:02 84 20 98 Nasal Cannula 5.0 08/21/17 08:51 65 22 94 Nasal Cannula 4.0 08/21/17 08:48 Nasal Cannula 4.0 08/21/17 08:47 94 Nasal Cannula 4.0 08/21/17 08:00 59 08/21/17 08:00 97.0 69 18 146/70 99 Bi-pap 45 08/21/17 05:23 77 20 93 Facial 3.0 45 08/21/17 04:20 75 20 94 Facial 45 08/21/17 04:00 71 08/21/17 04:00 97.5 89 19 111/71 97 Nasal Cannula 3.0 08/21/17 00:00 97.0 76 20 115/62 97 Nasal Cannula 3.0 08/21/17 00:00 74 08/20/17 23:04 77 20 94 3.0 35 08/20/17 23:01 74 20 92 Bi-pap 35 08/20/17 21:58 32 08/20/17 21:57 74 20 92 Nasal Cannula 3.0 32 08/20/17 21:57 Nasal Cannula 3.0 32 08/20/17 21:56 92 Nasal Cannula 3.0 32 08/20/17 21:02 74 115/72 08/20/17 20:00 69 08/20/17 20:00 97.0 76 20 110/62 97 Nasal Cannula 3.0 08/20/17 16:00 74 08/20/17 16:00 97.8 73 18 115/72 92 Nasal Cannula 3.0 General Appearance: WD/WN, alert, obese EENT: PERRL/EOMI Neck: supple, no JVD Rhythm: NSR Cardiovascular: normal rate, regular rhythm, no gallop/murmur Respiratory/Chest: other - basilar crackles bilat Abdomen: normal bowel sounds, non tender, soft Extremities: trace edema Intake and Output 08/20/17 08/21/17 19:00 07:00 Intake Total 1000 ml Balance 1000 ml Intake Oral 1000 ml # Voids 4 Microbiology Date/Time Source Procedure Growth Status 08/18/17 17:00 Sputum Gram Stain - Final Complete 08/18/17 17:00 Sputum Sputum Culture - Final NORMAL UPPER RESPIRATORY SIERRA PRESENT Complete [facility] LOVE Aug 21, 2017 13:40
[2017-08-21 16:00] VITALS: BP 110/52
--- NOTE | 2017-08-21 18:53 | General Progress Note ---
Assessment/Plan Assessment/Plan ASSESSMENT AND RECOMMENDATIONS: 1. Respiratory failure, s/p intubation and extubation likely due to chf exacerbation 2. Non-ST elevation myocardial infarction,has been seen by classroom instructor Dr. Villalobos. no evidence of pulmonary embolism 3. Pulmonary hypertension. Diuresis. Evaluation per Pulmonary team. 4. CHF exacerbation 5. Erythrocytosis, reactive Subjective Allergies: Coded Allergies: No Known Allergies (Unverified , 08/16/17) All Systems: reviewed and negative except above Subjective afebrile Objective Last 24 Hour Vital Signs Date Time Temp Pulse Resp B/P (MAP) Pulse Ox O2 Delivery O2 Flow Rate FiO2 08/21/17 18:41 Nasal Cannula 2.0 28 08/21/17 18:41 98 Nasal Cannula 2.0 28 08/21/17 18:41 73 19 98 Nasal Cannula 2.0 28 08/21/17 16:00 69 08/21/17 16:00 97.9 67 18 110/52 99 Nasal Cannula 2.0 08/21/17 13:36 71 20 98 Nasal Cannula 4.0 08/21/17 13:25 61 20 98 Nasal Cannula 4.0 08/21/17 12:00 62 08/21/17 12:00 97.9 62 18 124/67 99 Nasal Cannula 3.0 08/21/17 09:05 65 146/70 08/21/17 09:02 84 20 98 Nasal Cannula 5.0 08/21/17 08:51 65 22 94 Nasal Cannula 4.0 08/21/17 08:48 Nasal Cannula 4.0 08/21/17 08:47 94 Nasal Cannula 4.0 08/21/17 08:00 59 08/21/17 08:00 97.0 69 18 146/70 99 Bi-pap 45 08/21/17 05:23 77 20 93 Facial 3.0 45 08/21/17 04:20 75 20 94 Facial 45 08/21/17 04:00 71 08/21/17 04:00 97.5 89 19 111/71 97 Nasal Cannula 3.0 08/21/17 00:00 97.0 76 20 115/62 97 Nasal Cannula 3.0 08/21/17 00:00 74 08/20/17 23:04 77 20 94 3.0 35 08/20/17 23:01 74 20 92 Bi-pap 35 08/20/17 21:58 32 08/20/17 21:57 74 20 92 Nasal Cannula 3.0 32 08/20/17 21:57 Nasal Cannula 3.0 32 08/20/17 21:56 92 Nasal Cannula 3.0 32 08/20/17 21:02 74 115/72 08/20/17 20:00 69 08/20/17 20:00 97.0 76 20 110/62 97 Nasal Cannula 3.0 Intake and Output 08/20/17 08/21/17 19:00 07:00 Intake Total 1000 ml Balance 1000 ml Intake Oral 1000 ml # Voids 4 Height (Feet): 5 Height (Inches): 11.00 Weight (Pounds): 199 General Appearance: no apparent distress EENT: normal ENT inspection Neck: normal alignment Respiratory/Chest: chest wall non-tender Extremities: non-tender Neurologic: elementary education tutor II-XII grossly normal Dick Lee Aug 21, 2017 18:53
[2017-08-21 20:00] VITALS: BP 95/51
[2017-08-21] MEDS ORDERED: Etomidate 40mg/20ml Inj IV ONE (22:49)
[2017-08-21] MEDS ORDERED: Succinylcholine 20mg/ml 10ml vial ONE (22:49)
[2017-08-22] VITALS (7 sets, daily range): BP systolic 95–121; BP diastolic 58–85
[2017-08-22 05:38] LABS: BASOPHILS % (AUTO) 0.7 % (0.0-2.0); EOSINOPHILS % (AUTO) 6.4 % (0.0-3.0); HEMOGLOBIN 14.4 G/DL (12.0-16.0); LYMPHOCYTES % (AUTO) 26.2 % (20.0-45.0); MEAN CORPUSCULAR VOLUME 97 FL (80-99); MONOCYTES % (AUTO) 10.8 % (1.0-10.0); NEUTROPHILS % (AUTO) 55.9 % (45.0-75.0); PLATELET COUNT 176 K/UL (150-450); RED BLOOD COUNT 4.96 M/UL (4.20-5.40); RED CELL DISTRIBUTION WIDTH 14.4 % (11.6-14.8); WHITE BLOOD COUNT 8.4 K/UL (4.8-10.8)
[2017-08-22 06:22] LABS: ALANINE AMINOTRANSFERASE 16 U/L (12-78); ALBUMIN 2.7 G/DL (3.4-5.0); ALBUMIN/GLOBULIN RATIO 0.6 (1.0-2.7); ALKALINE PHOSPHATASE 62 U/L (46-116); ANION GAP 3 mmol/L (5-15); ASPARTATE AMINO TRANSFERASE 26 U/L (15-37); BILIRUBIN,TOTAL 0.6 MG/DL (0.2-1.0); BLOOD UREA NITROGEN 20 mg/dL (7-18); CALCIUM 7.4 MG/DL (8.5-10.1); CARBON DIOXIDE 35 MMOL/L (21-32); CHLORIDE 103 MMOL/L (98-107); CREATININE 1.1 MG/DL (0.55-1.30); PHOSPHORUS 3.6 MG/DL (2.5-4.9); POTASSIUM 4.5 MMOL/L (3.5-5.1); SODIUM 141 MMOL/L (136-145)
[2017-08-22] MEDS: Albuterol/Ipratropium 3ml neb INH SCH ×2 (06:56→14:56)
[2017-08-22] MEDS: Pantoprazole Inj IVP SCH (09:21)
[2017-08-22] MEDS: Metoprolol Tartrate 12.5mg TAB NG SCH ×2 (09:22→21:00)
[2017-08-22] MEDS: Enoxaparin Sodium 300mg/3ml vial SUBQ SCH ×2 (09:23→20:45)
--- NOTE | 2017-08-22 10:45 | Infectious Diseases Prog Note ---
Assessment/Plan Assessment/Plan Abx: IV Vanco 08/17-08/18 Ceftriaxone 08/18- Zosyn 08/17-08/18 Levaquin x1 08/17 Assessment: Acute hypercapneic/hypoxic respiratory failure s/p intubation 08/17; extubated 08/18- likely due to CHF exacerbation with possible COPD exacerbation -? PNA- no obvious infiltrates on CXR -CXR 08/18: Improving basilar parenchymal infiltrates versus edema, over one day -CTA chest: No evidence of pulmonary embolus, aortic dissection or aneurysm. Evidence of pulmonary artery hypertension. Moderate cardiomegaly. Reflux contrast into the IVC. Right heart failure versus tricuspid regurgitation. Posterior basilar atelectasis and trace pleural effusions. -CXR : Moderate pulmonary edema afebrile, no leukocytosis Lactic acidosis- resolved -u/a no pyuria B/L LE chronic venous stasis changes- no cellulitis ALIYAH Troponinemia pHTN COPD on home O2 2l NC CHF DM2 Plan: -D/C Ceftriaxone #4(abx #5/5) for possible PNA -08/18 SP Zosyn and Vanco #2 -f/u cx -Monitor CBC/CMP, temperatures Thank your for this consultation. Will continue to follow along with you. Discussed with RN Subjective Allergies: Coded Allergies: No Known Allergies (Unverified , 08/16/17) Subjective afebrile no leukocytosis 2L NC Objective Vital Signs Last 24 Hour Vital Signs Date Time Temp Pulse Resp B/P (MAP) Pulse Ox O2 Delivery O2 Flow Rate FiO2 08/22/17 09:22 56 106/65 08/22/17 08:00 97.0 56 18 106/65 95 Nasal Cannula 2.0 08/22/17 08:00 80 08/22/17 07:25 Nasal Cannula 2.0 28 08/22/17 07:25 98 Nasal Cannula 2.0 28 08/22/17 06:45 66 18 100 Nasal Cannula 2.0 08/22/17 06:40 64 18 98 Nasal Cannula 2.0 08/22/17 05:05 84 28 99 Facial 45 08/22/17 04:00 95.1 69 18 121/85 91 Nasal Cannula 2.0 08/22/17 04:00 62 08/22/17 03:18 86 26 99 Facial 45 08/22/17 00:35 82 27 99 Facial 45 08/22/17 00:00 95.7 72 18 98/60 97 Nasal Cannula 2.0 08/22/17 00:00 71 08/21/17 23:04 68 28 99 Facial 45 08/21/17 21:12 75 26 98 Facial 45 08/21/17 21:00 75 95/51 08/21/17 21:00 70 08/21/17 20:00 97.9 69 18 95/51 99 Nasal Cannula 2.0 08/21/17 18:51 74 18 98 Nasal Cannula 2.0 28 08/21/17 18:41 Nasal Cannula 2.0 28 08/21/17 18:41 98 Nasal Cannula 2.0 28 08/21/17 18:41 73 19 98 Nasal Cannula 2.0 28 08/21/17 16:00 69 08/21/17 16:00 97.9 67 18 110/52 99 Nasal Cannula 2.0 08/21/17 13:36 71 20 98 Nasal Cannula 4.0 08/21/17 13:25 61 20 98 Nasal Cannula 4.0 08/21/17 12:00 62 08/21/17 12:00 97.9 62 18 124/67 99 Nasal Cannula 3.0 Height (Feet): 5 Height (Inches): 11.00 Weight (Pounds): 199 Objective GENERAL: No acute distress. VITAL SIGNS: Reviewed. PULMONARY: Decreased breath sounds. Status post intubation. CARDIOVASCULAR: Regular rate. No S3 or S4. ABDOMEN: Soft, nontender, and nondistended. EXTREMITIES: A 1+ edema. b/l leg chornic venous stasis changes Laboratory Tests Test 08/22/17 03:55 White Blood Count 8.4 K/UL (4.8-10.8) Red Blood Count 4.96 M/UL (4.20-5.40) Hemoglobin 14.4 G/DL (12.0-16.0) Hematocrit 48.0 % (37.0-47.0) H Mean Corpuscular Volume 97 FL (80-99) Mean Corpuscular Hemoglobin 29.0 PG (27.0-31.0) Mean Corpuscular Hemoglobin Concent 30.0 G/DL (32.0-36.0) L Red Cell Distribution Width 14.4 % (11.6-14.8) Platelet Count 176 K/UL (150-450) Mean Platelet Volume 10.1 FL (6.5-10.1) Neutrophils (%) (Auto) 55.9 % (45.0-75.0) Lymphocytes (%) (Auto) 26.2 % (20.0-45.0) Monocytes (%) (Auto) 10.8 % (1.0-10.0) H Eosinophils (%) (Auto) 6.4 % (0.0-3.0) H Basophils (%) (Auto) 0.7 % (0.0-2.0) Sodium Level 141 MMOL/L (136-145) Potassium Level 4.5 MMOL/L (3.5-5.1) Chloride Level 103 MMOL/L (98-107) Carbon Dioxide Level 35 MMOL/L (21-32) H Anion Gap 3 mmol/L (5-15) L Blood Urea Nitrogen 20 mg/dL (7-18) H Creatinine 1.1 MG/DL (0.55-1.30) Estimat Glomerular Filtration Rate 50.8 mL/min (>60) Glucose Level 78 MG/DL (74-106) Uric Acid 8.6 MG/DL (2.6-7.2) H Calcium Level 7.4 MG/DL (8.5-10.1) L Phosphorus Level 3.6 MG/DL (2.5-4.9) Magnesium Level 1.9 MG/DL (1.8-2.4) Total Bilirubin 0.6 MG/DL (0.2-1.0) Aspartate Amino Transf (AST/SGOT) 26 U/L (15-37) Alanine Aminotransferase (ALT/SGPT) 16 U/L (12-78) Alkaline Phosphatase 62 U/L (46-116) Troponin I 0.241 ng/mL (0.000-0.056) C-Reactive Protein, Quantitative 2.5 mg/dL (0.00-0.90) H Pro-B-Type Natriuretic Peptide 294 pg/mL (0-125) H Total Protein 7.1 G/DL (6.4-8.2) Albumin 2.7 G/DL (3.4-5.0) L Globulin 4.4 g/dL Albumin/Globulin Ratio 0.6 (1.0-2.7) L Current Medications Medications (Trade) Dose Ordered Sig/Jenny Route PRN Reason Start Time Stop Time Status Last Admin Dose Admin Albuterol/ Ipratropium (Albuterol/ Ipratropium) 3 ml Q4H PRN HHN sob 08/19/17 12:15 08/22/17 16:14 Albuterol/ Ipratropium (Albuterol/ Ipratropium) 3 ml TIDRT INH 08/19/17 13:00 08/22/17 18:59 08/22/17 06:56 Aspirin (ASA) 81 mg DAILY NG 08/22/17 12:30 09/21/17 12:29 Atorvastatin Calcium (Lipitor) 20 mg BEDTIME ORAL 08/19/17 21:00 09/17/17 20:59 08/21/17 20:46 Ceftriaxone Sodium 1 gm/ Dextrose 55 ml @ 110 mls/hr Q24H IVPB 08/19/17 14:00 08/25/17 13:59 08/21/17 13:29 Dextrose (Dextrose 50%) STAT PRN IV Hypoglycemia 08/20/17 09:00 09/17/17 08:59 Enoxaparin Sodium (Lovenox) 90 mg EVERY 12 HOURS SUBQ 08/19/17 21:00 09/16/17 20:59 08/22/17 09:23 Metoprolol Tartrate (Lopressor) 25 mg Q12HR NG 08/21/17 21:00 09/20/17 20:59 08/22/17 09:22 Pantoprazole (Protonix) 40 mg DAILY IVP 08/20/17 09:00 09/17/17 08:59 08/22/17 09:21 Regadenoson (Lexiscan) 0.4 mg ONCE PRN IV STRESS TEST 08/23/17 10:00 08/23/17 20:00 Parisa Lackey M.D. Aug 22, 2017 10:45
[2017-08-22] MEDS: Aspirin Baby 81mg ORAL SCH (12:13)
[2017-08-22] MEDS ORDERED: Aspirin Baby 81mg NG SCH (12:30)
[2017-08-22] MEDS ORDERED: Flu Vaccine Quadrivalent 0.5ml IM ONE (14:00)
--- NOTE | 2017-08-22 14:28 | Nephrology Progress Note ---
Assessment/Plan Problem List: (1) Respiratory failure requiring intubation (2) Pulmonary hypertension (3) Morbid obesity with BMI of 40.0-44.9, adult (4) Acute renal failure Assessment Rising Cr ( acute renal failure) multifactorial: mainly aggresive treatment of underlying CHF other: DM , Sepsis... Peoteinuria, HypoAlbuminemia, r/o Nephrotic Syndrom Cr WNL now conditions: acute hypoxemic hypercapnic RF requiring intubation elevated troponin possible NSTEMI pulmonary edema - CHF exacerbation pulmonary arterial HTN possible sepsis ,possible PNA, cellulitis BLE elevated D dimer morbid obesity COPD/asthma DM HTN Hyperlipidemia hx of DIANN elevated TSH Plan Sugg: Cardiac and pulmonary Optimization- Avoid Nephrotoxics- Monitor renal parameters correct electrolytes keep BP and BS under control Urine studies Subjective ROS Limited/Unobtainable: No Constitutional: Reports: malaise Objective Objective Last 24 Hour Vital Signs Date Time Temp Pulse Resp B/P (MAP) Pulse Ox O2 Delivery O2 Flow Rate FiO2 08/22/17 12:00 97.3 60 18 97/63 98 08/22/17 12:00 62 08/22/17 09:22 56 106/65 08/22/17 08:00 97.0 56 18 106/65 95 Nasal Cannula 2.0 08/22/17 08:00 80 08/22/17 07:25 Nasal Cannula 2.0 28 08/22/17 07:25 98 Nasal Cannula 2.0 28 08/22/17 06:45 66 18 100 Nasal Cannula 2.0 28 08/22/17 06:40 64 18 98 Nasal Cannula 2.0 28 08/22/17 05:05 84 28 99 Facial 45 08/22/17 04:00 95.1 69 18 121/85 91 Nasal Cannula 2.0 08/22/17 04:00 62 08/22/17 03:18 86 26 99 Facial 45 08/22/17 00:35 82 27 99 Facial 45 08/22/17 00:00 95.7 72 18 98/60 97 Nasal Cannula 2.0 08/22/17 00:00 71 08/21/17 23:04 68 28 99 Facial 45 08/21/17 21:12 75 26 98 Facial 45 08/21/17 21:00 75 95/51 08/21/17 21:00 70 08/21/17 20:00 97.9 69 18 95/51 99 Nasal Cannula 2.0 08/21/17 18:51 74 18 98 Nasal Cannula 2.0 28 08/21/17 18:41 Nasal Cannula 2.0 28 08/21/17 18:41 98 Nasal Cannula 2.0 28 08/21/17 18:41 73 19 98 Nasal Cannula 2.0 28 08/21/17 16:00 69 08/21/17 16:00 97.9 67 18 110/52 99 Nasal Cannula 2.0 Intake and Output 08/21/17 08/22/17 19:00 07:00 Intake Total 1105 ml 250 ml Balance 1105 ml 250 ml Intake Oral 1050 ml 250 ml IV Total 55 ml # Voids 3 3 Laboratory Tests 08/22/17 03:55: White Blood Count 8.4, Red Blood Count 4.96, Hemoglobin 14.4, Hematocrit 48.0H, Mean Corpuscular Volume 97, Mean Corpuscular Hemoglobin 29.0, Mean Corpuscular Hemoglobin Concent 30.0L, Red Cell Distribution Width 14.4, Platelet Count 176, Mean Platelet Volume 10.1, Neutrophils (%) (Auto) 55.9, Lymphocytes (%) (Auto) 26.2, Monocytes (%) (Auto) 10.8H, Eosinophils (%) (Auto) 6.4H, Basophils (%) ( Auto) 0.7, Sodium Level 141, Potassium Level 4.5, Chloride Level 103, Carbon Dioxide Level 35H, Anion Gap 3L, Blood Urea Nitrogen 20H, Creatinine 1.1, Estimat Glomerular Filtration Rate 50.8, Glucose Level 78, Uric Acid 8.6H, Calcium Level 7.4L, Phosphorus Level 3.6, Magnesium Level 1.9, Total Bilirubin 0.6, Aspartate Amino Transf (AST/SGOT) 26, Alanine Aminotransferase (ALT/SGPT) 16, Alkaline Phosphatase 62, Troponin I 0.241H, C-Reactive Protein, Quantitative 2.5H, Pro-B-Type Natriuretic Peptide 294H, Total Protein 7.1, Albumin 2.7L, Globulin 4.4, Albumin/Globulin Ratio 0.6L, Rheumatoid Factor Screen [Pending], Anti-Nuclear Antibody Screen [Pending] Height (Feet): 5 Height (Inches): 11.00 Weight (Pounds): 199 General Appearance: no apparent distress Objective no change in PE LEONOR GENTILE Aug 22, 2017 14:28
[2017-08-22] MEDS ORDERED: NS 500ML ONE (14:40)
[2017-08-22] MEDS ORDERED: NS 275ml ONE ×2 (14:40→17:33)
[2017-08-22] MEDS ORDERED: Tubing IV Secondary IV ONE ×2 (14:40→17:33)
--- NOTE | 2017-08-22 15:34 | Cardiology Progress Note ---
Assessment/Plan Problem List: (1) Pulmonary hypertension (2) Acute exacerbation of CHF (congestive heart failure) (3) NSTEMI, initial episode of care (4) Morbid obesity with BMI of 40.0-44.9, adult (5) Respiratory failure requiring intubation Status: stable, progressing Status Narrative Mrs. Hilario has improved clinically and was successfully extubated on 08/18. She has pulmonary hypertension -? primary pulmonary cause Improved w/ diuresis -? rt heart failure and diastolic hf Troponin levels are decreasing. EKG shows deeply inverted anterior T waves c/w ischemia or nonSTEMI. However, old ekg not available for comparison. ECHO - technically difficult. Wall motion not assessed. Assessment/Plan Continue aspirin, statin, metoprolol. Low dose lasix Stress nuclear study to r/o ischemia (adenosine, pharmacologic stress) to be done tomorrow, given troponin levels and EKG findings Evaluation for cause of pulm hypertension per primary team- ?SLE or other rheumatologic diseease , ? interstitial or other primary lung disease Pt states no COPD. No evidence for cardiac cause for pulm hypertension or chronic PEs - CTA negative on adm Dr Tao to follow starting 08/23 Subjective ROS Limited/Unobtainable: No Subjective Cardiology for Dr. Tao Pt having bronchodil nebulizer rx. Objective Last 24 Hour Vital Signs Date Time Temp Pulse Resp B/P (MAP) Pulse Ox O2 Delivery O2 Flow Rate FiO2 08/22/17 14:57 64 18 100 Nasal Cannula 2.0 28 08/22/17 14:45 63 18 98 Nasal Cannula 2.0 28 08/22/17 12:00 97.3 60 18 97/63 98 08/22/17 12:00 62 08/22/17 09:22 56 106/65 08/22/17 08:00 97.0 56 18 106/65 95 Nasal Cannula 2.0 08/22/17 08:00 80 08/22/17 07:25 Nasal Cannula 2.0 28 08/22/17 07:25 98 Nasal Cannula 2.0 28 08/22/17 06:45 66 18 100 Nasal Cannula 2.0 28 08/22/17 06:40 64 18 98 Nasal Cannula 2.0 28 08/22/17 05:05 84 28 99 Facial 45 08/22/17 04:00 95.1 69 18 121/85 91 Nasal Cannula 2.0 08/22/17 04:00 62 08/22/17 03:18 86 26 99 Facial 45 08/22/17 00:35 82 27 99 Facial 45 08/22/17 00:00 95.7 72 18 98/60 97 Nasal Cannula 2.0 08/22/17 00:00 71 08/21/17 23:04 68 28 99 Facial 45 08/21/17 21:12 75 26 98 Facial 45 08/21/17 21:00 75 95/51 08/21/17 21:00 70 08/21/17 20:00 97.9 69 18 95/51 99 Nasal Cannula 2.0 08/21/17 18:51 74 18 98 Nasal Cannula 2.0 28 08/21/17 18:41 Nasal Cannula 2.0 28 08/21/17 18:41 98 Nasal Cannula 2.0 28 08/21/17 18:41 73 19 98 Nasal Cannula 2.0 28 08/21/17 16:00 69 08/21/17 16:00 97.9 67 18 110/52 99 Nasal Cannula 2.0 General Appearance: WD/WN, no apparent distress, obese EENT: PERRL/EOMI Neck: supple, no JVD Rhythm: NSR Cardiovascular: normal rate, regular rhythm, no gallop/murmur Respiratory/Chest: other - minimal crackles bilat Abdomen: normal bowel sounds, non tender, soft Extremities: no swelling Intake and Output 08/21/17 08/22/17 19:00 07:00 Intake Total 1105 ml 250 ml Balance 1105 ml 250 ml Intake Oral 1050 ml 250 ml IV Total 55 ml # Voids 3 3 Laboratory Tests Test 08/22/17 03:55 White Blood Count 8.4 K/UL (4.8-10.8) Red Blood Count 4.96 M/UL (4.20-5.40) Hemoglobin 14.4 G/DL (12.0-16.0) Hematocrit 48.0 % (37.0-47.0) H Mean Corpuscular Volume 97 FL (80-99) Mean Corpuscular Hemoglobin 29.0 PG (27.0-31.0) Mean Corpuscular Hemoglobin Concent 30.0 G/DL (32.0-36.0) L Red Cell Distribution Width 14.4 % (11.6-14.8) Platelet Count 176 K/UL (150-450) Mean Platelet Volume 10.1 FL (6.5-10.1) Neutrophils (%) (Auto) 55.9 % (45.0-75.0) Lymphocytes (%) (Auto) 26.2 % (20.0-45.0) Monocytes (%) (Auto) 10.8 % (1.0-10.0) H Eosinophils (%) (Auto) 6.4 % (0.0-3.0) H Basophils (%) (Auto) 0.7 % (0.0-2.0) Sodium Level 141 MMOL/L (136-145) Potassium Level 4.5 MMOL/L (3.5-5.1) Chloride Level 103 MMOL/L (98-107) Carbon Dioxide Level 35 MMOL/L (21-32) H Anion Gap 3 mmol/L (5-15) L Blood Urea Nitrogen 20 mg/dL (7-18) H Creatinine 1.1 MG/DL (0.55-1.30) Estimat Glomerular Filtration Rate 50.8 mL/min (>60) Glucose Level 78 MG/DL (74-106) Uric Acid 8.6 MG/DL (2.6-7.2) H Calcium Level 7.4 MG/DL (8.5-10.1) L Phosphorus Level 3.6 MG/DL (2.5-4.9) Magnesium Level 1.9 MG/DL (1.8-2.4) Total Bilirubin 0.6 MG/DL (0.2-1.0) Aspartate Amino Transf (AST/SGOT) 26 U/L (15-37) Alanine Aminotransferase (ALT/SGPT) 16 U/L (12-78) Alkaline Phosphatase 62 U/L (46-116) Troponin I 0.241 ng/mL (0.000-0.056) C-Reactive Protein, Quantitative 2.5 mg/dL (0.00-0.90) H Pro-B-Type Natriuretic Peptide 294 pg/mL (0-125) H Total Protein 7.1 G/DL (6.4-8.2) Albumin 2.7 G/DL (3.4-5.0) L Globulin 4.4 g/dL Albumin/Globulin Ratio 0.6 (1.0-2.7) L Rheumatoid Factor Screen Pending Anti-Nuclear Antibody Screen Pending [facility] Aug 22, 2017 15:34
--- NOTE | 2017-08-22 20:10 | General Progress Note ---
Assessment/Plan Problem List: (1) Acute exacerbation of CHF (congestive heart failure) ICD Codes: I50.9 - Heart failure, unspecified SNOMED: 75663157, 847430737 Qualifiers: Qualified Codes: I50.9 - Heart failure, unspecified (2) NSTEMI, initial episode of care ICD Codes: I21.4 - Non-ST elevation (NSTEMI) myocardial infarction SNOMED: 232677073, 56995041 (3) Respiratory failure with hypoxia and hypercapnia ICD Codes: J96.91 - Respiratory failure, unspecified with hypoxia; J96.92 - Respiratory failure, unspecified with hypercapnia SNOMED: 59530744, 177852290 Qualifiers: Qualified Codes: J96.21 - Acute and chronic respiratory failure with hypoxia ; J96.22 - Acute and chronic respiratory failure with hypercapnia (4) ACS (acute coronary syndrome) ICD Codes: I24.9 - Acute ischemic heart disease, unspecified; J96.92 - Respiratory failure, unspecified with hypercapnia SNOMED: 014527360, 244831756 (5) Pulmonary hypertension ICD Codes: I27.20 - Pulmonary hypertension, unspecified SNOMED: 09300688 (6) Respiratory failure requiring intubation ICD Codes: J96.90 - Respiratory failure, unspecified, unspecified whether with hypoxia or hypercapnia; Z68.41 - Body mass index (BMI) 40.0-44.9, adult SNOMED: 536408366, 815444878 (7) Acute renal failure ICD Codes: N17.9 - Acute kidney failure, unspecified SNOMED: 15449191 Status: progressing Assessment/Plan s/p extubation chf exacerbation afebrile s/p mi resp failure Subjective ROS Limited/Unobtainable: Yes Allergies: Coded Allergies: No Known Allergies (Unverified , 08/16/17) Objective Last 24 Hour Vital Signs Date Time Temp Pulse Resp B/P (MAP) Pulse Ox O2 Delivery O2 Flow Rate FiO2 08/22/17 19:30 Nasal Cannula 08/22/17 19:18 73 19 96 Nasal Cannula 2.0 28 08/22/17 19:17 96 Nasal Cannula 2.0 28 08/22/17 19:17 Nasal Cannula 2.0 28 08/22/17 16:00 97.6 65 19 97/58 96 08/22/17 16:00 66 08/22/17 14:57 64 18 100 Nasal Cannula 2.0 28 08/22/17 14:45 63 18 98 Nasal Cannula 2.0 28 08/22/17 12:00 97.3 60 18 97/63 98 08/22/17 12:00 62 08/22/17 09:22 56 106/65 08/22/17 08:00 97.0 56 18 106/65 95 Nasal Cannula 2.0 08/22/17 08:00 80 08/22/17 07:25 Nasal Cannula 2.0 28 08/22/17 07:25 98 Nasal Cannula 2.0 28 08/22/17 06:45 66 18 100 Nasal Cannula 2.0 28 08/22/17 06:40 64 18 98 Nasal Cannula 2.0 28 08/22/17 05:05 84 28 99 Facial 45 08/22/17 04:00 95.1 69 18 121/85 91 Nasal Cannula 2.0 08/22/17 04:00 62 08/22/17 03:18 86 26 99 Facial 45 08/22/17 00:35 82 27 99 Facial 45 08/22/17 00:00 95.7 72 18 98/60 97 Nasal Cannula 2.0 08/22/17 00:00 71 08/21/17 23:04 68 28 99 Facial 45 08/21/17 21:12 75 26 98 Facial 45 08/21/17 21:00 75 95/51 08/21/17 21:00 70 Intake and Output 08/21/17 08/22/17 19:00 07:00 Intake Total 1105 ml 250 ml Balance 1105 ml 250 ml Intake Oral 1050 ml 250 ml IV Total 55 ml # Voids 3 3 Laboratory Tests 08/22/17 03:55: White Blood Count 8.4, Red Blood Count 4.96, Hemoglobin 14.4, Hematocrit 48.0H, Mean Corpuscular Volume 97, Mean Corpuscular Hemoglobin 29.0, Mean Corpuscular Hemoglobin Concent 30.0L, Red Cell Distribution Width 14.4, Platelet Count 176, Mean Platelet Volume 10.1, Neutrophils (%) (Auto) 55.9, Lymphocytes (%) (Auto) 26.2, Monocytes (%) (Auto) 10.8H, Eosinophils (%) (Auto) 6.4H, Basophils (%) ( Auto) 0.7, Sodium Level 141, Potassium Level 4.5, Chloride Level 103, Carbon Dioxide Level 35H, Anion Gap 3L, Blood Urea Nitrogen 20H, Creatinine 1.1, Estimat Glomerular Filtration Rate 50.8, Glucose Level 78, Uric Acid 8.6H, Calcium Level 7.4L, Phosphorus Level 3.6, Magnesium Level 1.9, Total Bilirubin 0.6, Aspartate Amino Transf (AST/SGOT) 26, Alanine Aminotransferase (ALT/SGPT) 16, Alkaline Phosphatase 62, Troponin I 0.241H, C-Reactive Protein, Quantitative 2.5H, Pro-B-Type Natriuretic Peptide 294H, Total Protein 7.1, Albumin 2.7L, Globulin 4.4, Albumin/Globulin Ratio 0.6L, Rheumatoid Factor Screen [Pending], Anti-Nuclear Antibody Screen [Pending] Height (Feet): 5 Height (Inches): 11.00 Weight (Pounds): 199 Respiratory/Chest: rhonchi - bilaterally Erinn Segal MD Aug 22, 2017 20:10
[2017-08-22] MEDS: Atorvastatin 20mg tab ORAL SCH (20:44)
[2017-08-23 00:25] VITALS: BP 100/80
[2017-08-23 04:00] VITALS: BP 110/76
[2017-08-23 08:00] VITALS: BP 106/61
[2017-08-23] MEDS: Aspirin Baby 81mg ORAL SCH (08:51)
[2017-08-23] MEDS: Pantoprazole Inj IVP SCH (08:51)
[2017-08-23] MEDS: Metoprolol Tartrate 12.5mg TAB NG SCH ×2 (09:00→21:00)
[2017-08-23] MEDS: Enoxaparin Sodium 300mg/3ml vial SUBQ SCH ×2 (09:33→22:45)
[2017-08-23] MEDS ORDERED: Lexiscan 0.4mg/5ml syringe IV PRN (10:00)
[2017-08-23 12:00] VITALS: BP 105/65
--- NOTE | 2017-08-23 13:19 | Infectious Diseases Prog Note ---
Assessment/Plan Assessment/Plan Abx: IV Vanco 08/17-08/18 Ceftriaxone 08/18- Zosyn 08/17-08/18 Levaquin x1 08/17 Assessment: Acute hypercapneic/hypoxic respiratory failure s/p intubation 08/17; extubated 08/18- likely due to CHF exacerbation with possible COPD exacerbation -? PNA- no obvious infiltrates on CXR -CXR 08/18: Improving basilar parenchymal infiltrates versus edema, over one day -CTA chest: No evidence of pulmonary embolus, aortic dissection or aneurysm. Evidence of pulmonary artery hypertension. Moderate cardiomegaly. Reflux contrast into the IVC. Right heart failure versus tricuspid regurgitation. Posterior basilar atelectasis and trace pleural effusions. -CXR : Moderate pulmonary edema afebrile, no leukocytosis Lactic acidosis- resolved -u/a no pyuria B/L LE chronic venous stasis changes- no cellulitis ALIYAH Troponinemia pHTN COPD on home O2 2l NC CHF DM2 Plan: -Continue to monitor off abx -08/21 SP CEftriaxone #4 -08/18 SP Zosyn and Vanco #2 -Monitor CBC/CMP, temperatures -aspiration precautions Thank your for this consultation. Will continue to follow along with you. Discussed with RN Subjective Allergies: Coded Allergies: No Known Allergies (Unverified , 08/16/17) Subjective afebrile no leukocytosis 2L NC Objective Vital Signs Last 24 Hour Vital Signs Date Time Temp Pulse Resp B/P (MAP) Pulse Ox O2 Delivery O2 Flow Rate FiO2 08/23/17 12:46 61 08/23/17 12:00 96.3 70 20 105/65 98 08/23/17 08:00 96.8 68 21 106/61 94 08/23/17 08:00 67 08/23/17 07:30 100 Nasal Cannula 2.0 28 08/23/17 07:30 Nasal Cannula 2.0 28 08/23/17 04:00 75 08/23/17 04:00 98.2 73 19 110/76 94 08/23/17 03:18 88 08/23/17 00:25 97.9 75 20 100/80 92 08/23/17 00:00 74 08/22/17 21:00 98.5 71 18 95/70 92 08/22/17 21:00 71 95/70 08/22/17 20:51 98.5 77 18 97/72 92 08/22/17 20:00 72 08/22/17 19:30 Nasal Cannula 08/22/17 19:18 73 19 96 Nasal Cannula 2.0 28 08/22/17 19:17 96 Nasal Cannula 2.0 28 08/22/17 19:17 Nasal Cannula 2.0 28 08/22/17 16:00 97.6 65 19 97/58 96 08/22/17 16:00 66 08/22/17 14:57 64 18 100 Nasal Cannula 2.0 28 08/22/17 14:45 63 18 98 Nasal Cannula 2.0 28 Height (Feet): 5 Height (Inches): 11.00 Weight (Pounds): 199 Objective GENERAL: No acute distress. VITAL SIGNS: Reviewed. PULMONARY: Decreased breath sounds. Status post intubation. CARDIOVASCULAR: Regular rate. No S3 or S4. ABDOMEN: Soft, nontender, and nondistended. EXTREMITIES: A 1+ edema. b/l leg chornic venous stasis changes Current Medications Medications (Trade) Dose Ordered Sig/Jenny Route PRN Reason Start Time Stop Time Status Last Admin Dose Admin Aspirin (ASA) 81 mg DAILY ORAL 08/22/17 12:30 09/21/17 12:29 08/23/17 08:51 Atorvastatin Calcium (Lipitor) 20 mg BEDTIME ORAL 08/22/17 21:00 09/21/17 20:59 08/22/17 20:44 Dextrose (Dextrose 50%) STAT PRN IV Hypoglycemia 08/20/17 09:00 09/17/17 08:59 Enoxaparin Sodium (Lovenox) 90 mg EVERY 12 HOURS SUBQ 08/19/17 21:00 09/16/17 20:59 08/23/17 09:33 Metoprolol Tartrate (Lopressor) 25 mg Q12HR NG 08/21/17 21:00 09/20/17 20:59 08/22/17 09:22 Pantoprazole (Protonix) 40 mg DAILY IVP 08/20/17 09:00 09/17/17 08:59 08/23/17 08:51 Regadenoson (Lexiscan) 0.4 mg ONCE PRN IV STRESS TEST 08/23/17 10:00 08/23/17 20:00 Parisa Lackey M.D. Aug 23, 2017 13:19
--- NOTE | 2017-08-23 14:02 | Cardiology Progress Note ---
Assessment/Plan Assessment/Plan (1) Pulmonary hypertension (2) Acute exacerbation of CHF (congestive heart failure) (3) Abnormal cardiac enzymes ? 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 bp is fine lipids not sig elevated not a smoker Subjective Cardiovascular: Denies: chest pain, lightheadedness, palpitations Respiratory: Denies: shortness of breath Gastrointestinal/Abdominal: Denies: abdominal pain Genitourinary: Denies: burning Objective Last 24 Hour Vital Signs Date Time Temp Pulse Resp B/P (MAP) Pulse Ox O2 Delivery O2 Flow Rate FiO2 08/23/17 12:46 61 08/23/17 12:00 96.3 70 20 105/65 98 08/23/17 08:00 96.8 68 21 106/61 94 08/23/17 08:00 67 08/23/17 07:30 100 Nasal Cannula 2.0 28 08/23/17 07:30 Nasal Cannula 2.0 28 08/23/17 04:00 75 08/23/17 04:00 98.2 73 19 110/76 94 08/23/17 03:18 88 08/23/17 00:25 97.9 75 20 100/80 92 08/23/17 00:00 74 08/22/17 21:00 98.5 71 18 95/70 92 08/22/17 21:00 71 95/70 08/22/17 20:51 98.5 77 18 97/72 92 08/22/17 20:00 72 08/22/17 19:30 Nasal Cannula 08/22/17 19:18 73 19 96 Nasal Cannula 2.0 28 08/22/17 19:17 96 Nasal Cannula 2.0 28 08/22/17 19:17 Nasal Cannula 2.0 28 08/22/17 16:00 97.6 65 19 97/58 96 08/22/17 16:00 66 08/22/17 14:57 64 18 100 Nasal Cannula 2.0 28 08/22/17 14:45 63 18 98 Nasal Cannula 2.0 28 General Appearance: no apparent distress, alert, obese Cardiovascular: normal rate, regular rhythm Respiratory/Chest: lungs clear, normal breath sounds Abdomen: normal bowel sounds, non tender, soft Extremities: trace edema Intake and Output 08/22/17 08/23/17 19:00 07:00 Intake Total 340 ml Balance 340 ml Intake Oral 340 ml # Voids 3 CHRISTINE MORATAYA Aug 23, 2017 14:02
--- NOTE | 2017-08-23 15:22 | Nephrology Progress Note ---
Assessment/Plan Problem List: (1) Respiratory failure requiring intubation (2) Pulmonary hypertension (3) Morbid obesity with BMI of 40.0-44.9, adult (4) Acute renal failure Assessment s/p Rising Cr ( acute renal failure) multifactorial: mainly aggresive treatment of underlying CHF other: DM , Sepsis... Peoteinuria, HypoAlbuminemia, r/o Nephrotic Syndrom Cr WNL now conditions: acute hypoxemic hypercapnic RF requiring intubation elevated troponin possible NSTEMI pulmonary edema - CHF exacerbation pulmonary arterial HTN possible sepsis ,possible PNA, cellulitis BLE elevated D dimer morbid obesity COPD/asthma DM HTN Hyperlipidemia hx of DIANN elevated TSH Plan Sugg: no labs today Cardiac and pulmonary Optimization- Avoid Nephrotoxics- Monitor renal parameters correct electrolytes keep BP and BS under control Urine studies Subjective ROS Limited/Unobtainable: No Constitutional: Reports: malaise Objective Objective Last 24 Hour Vital Signs Date Time Temp Pulse Resp B/P (MAP) Pulse Ox O2 Delivery O2 Flow Rate FiO2 08/23/17 12:46 61 08/23/17 12:00 96.3 70 20 105/65 98 08/23/17 08:00 96.8 68 21 106/61 94 08/23/17 08:00 67 08/23/17 07:30 100 Nasal Cannula 2.0 28 08/23/17 07:30 Nasal Cannula 2.0 28 08/23/17 04:00 75 08/23/17 04:00 98.2 73 19 110/76 94 08/23/17 03:18 88 08/23/17 00:25 97.9 75 20 100/80 92 08/23/17 00:00 74 08/22/17 21:00 98.5 71 18 95/70 92 08/22/17 21:00 71 95/70 08/22/17 20:51 98.5 77 18 97/72 92 08/22/17 20:00 72 08/22/17 19:30 Nasal Cannula 08/22/17 19:18 73 19 96 Nasal Cannula 2.0 28 08/22/17 19:17 96 Nasal Cannula 2.0 28 08/22/17 19:17 Nasal Cannula 2.0 28 08/22/17 16:00 97.6 65 19 97/58 96 08/22/17 16:00 66 Intake and Output 08/22/17 08/23/17 19:00 07:00 Intake Total 340 ml Balance 340 ml Intake Oral 340 ml # Voids 3 Height (Feet): 5 Height (Inches): 11.00 Weight (Pounds): 199 General Appearance: no apparent distress Objective no change in PE LEONOR GENTILE Aug 23, 2017 15:22
[2017-08-23 16:00] VITALS: BP 119/64
[2017-08-23 20:00] VITALS: BP 111/66
--- NOTE | 2017-08-23 21:20 | General Progress Note ---
Assessment/Plan Problem List: (1) Acute exacerbation of CHF (congestive heart failure) ICD Codes: I50.9 - Heart failure, unspecified SNOMED: 89023037, 936008396 Qualifiers: Qualified Codes: I50.9 - Heart failure, unspecified (2) NSTEMI, initial episode of care ICD Codes: I21.4 - Non-ST elevation (NSTEMI) myocardial infarction SNOMED: 394297607, 38741495 (3) Respiratory failure with hypoxia and hypercapnia ICD Codes: J96.91 - Respiratory failure, unspecified with hypoxia; J96.92 - Respiratory failure, unspecified with hypercapnia SNOMED: 83164981, 259558514 Qualifiers: Qualified Codes: J96.21 - Acute and chronic respiratory failure with hypoxia ; J96.22 - Acute and chronic respiratory failure with hypercapnia (4) ACS (acute coronary syndrome) ICD Codes: I24.9 - Acute ischemic heart disease, unspecified; J96.92 - Respiratory failure, unspecified with hypercapnia SNOMED: 779127785, 518345163 (5) Pulmonary hypertension ICD Codes: I27.20 - Pulmonary hypertension, unspecified SNOMED: 99061631 (6) Respiratory failure requiring intubation ICD Codes: J96.90 - Respiratory failure, unspecified, unspecified whether with hypoxia or hypercapnia; Z68.41 - Body mass index (BMI) 40.0-44.9, adult SNOMED: 227360610, 957056654 (7) Acute renal failure ICD Codes: N17.9 - Acute kidney failure, unspecified SNOMED: 21071784 Status: progressing Assessment/Plan s/p extubation chf exacerbation improving trop is improving s/p mi Subjective ROS Limited/Unobtainable: Yes Allergies: Coded Allergies: No Known Allergies (Unverified , 08/16/17) Objective Last 24 Hour Vital Signs Date Time Temp Pulse Resp B/P (MAP) Pulse Ox O2 Delivery O2 Flow Rate FiO2 08/23/17 19:45 82 25 Nasal Cannula 2.0 28 08/23/17 19:45 94 Nasal Cannula 2.0 28 08/23/17 19:45 Nasal Cannula 2.0 28 08/23/17 16:00 97.9 80 20 119/64 93 Nasal Cannula 2.0 08/23/17 16:00 79 08/23/17 12:46 61 08/23/17 12:00 96.3 70 20 105/65 98 08/23/17 12:00 98 Nasal Cannula 2.0 08/23/17 08:00 96.8 68 21 106/61 94 08/23/17 08:00 67 08/23/17 08:00 94 Nasal Cannula 2.0 08/23/17 07:30 100 Nasal Cannula 2.0 28 08/23/17 07:30 Nasal Cannula 2.0 28 08/23/17 04:00 75 08/23/17 04:00 98.2 73 19 110/76 94 08/23/17 03:18 88 08/23/17 00:25 97.9 75 20 100/80 92 08/23/17 00:00 74 Intake and Output 08/22/17 08/23/17 19:00 07:00 Intake Total 340 ml Balance 340 ml Intake Oral 340 ml # Voids 3 Height (Feet): 5 Height (Inches): 11.00 Weight (Pounds): 199 Respiratory/Chest: lungs clear Abdomen: soft Erinn Segal MD Aug 23, 2017 21:20
[2017-08-23] MEDS: Atorvastatin 20mg tab ORAL SCH (22:44)
[2017-08-24] VITALS: BP 104/74
[2017-08-24 04:00] VITALS: BP 111/70
[2017-08-24 05:52] LABS: EOSINOPHILS % (AUTO) 7.1 % (0.0-3.0); HEMOGLOBIN 14.1 G/DL (12.0-16.0); LYMPHOCYTES % (AUTO) 21.1 % (20.0-45.0); MEAN CORPUSCULAR VOLUME 98 FL (80-99); MONOCYTES % (AUTO) 10.7 % (1.0-10.0); NEUTROPHILS % (AUTO) 60.1 % (45.0-75.0); PLATELET COUNT 194 K/UL (150-450); RED CELL DISTRIBUTION WIDTH 14.4 % (11.6-14.8); WHITE BLOOD COUNT 7.7 K/UL (4.8-10.8)
[2017-08-24 06:47] LABS: ALANINE AMINOTRANSFERASE 18 U/L (12-78); ALBUMIN 2.8 G/DL (3.4-5.0); ALBUMIN/GLOBULIN RATIO 0.6 (1.0-2.7); ALKALINE PHOSPHATASE 65 U/L (46-116); ANION GAP 7 mmol/L (5-15); ASPARTATE AMINO TRANSFERASE 26 U/L (15-37); BILIRUBIN,TOTAL 0.5 MG/DL (0.2-1.0); BLOOD UREA NITROGEN 16 mg/dL (7-18); CALCIUM 7.6 MG/DL (8.5-10.1); CARBON DIOXIDE 30 MMOL/L (21-32); CHLORIDE 106 MMOL/L (98-107); CREATININE 1.1 MG/DL (0.55-1.30); PHOSPHORUS 3.5 MG/DL (2.5-4.9); POTASSIUM 4.5 MMOL/L (3.5-5.1); SODIUM 143 MMOL/L (136-145)
[2017-08-24 08:00] VITALS: BP 118/58
--- NOTE | 2017-08-24 08:56 | Diagnostic Imaging Report ---
Indications: Chest pain Technique: Single day single isotope protocol utilized. Initially, resting images obtained using IV administration 10 millicuries 99M technetium Myoview. Subsequently, patient underwent lexiscan stress testing. See cardiology report for details. During Lexiscan infusion, IV administration 31.8 mCi 99 M technetium Myoview. SPECT and planar images obtained. SPECT images gated to 8 phases of the cardiac cycle were also obtained, and reformatted into cine images for evaluation of ejection fraction. Comparison: none Findings: Presence or absence of symptoms during infusion is not reported on the cardiology report. Per cardiology report, resting EKG demonstrates normal sinus rhythm with diffuse T-wave inversion. Since or absence of ST changes not reported on the cardiology report. Imaging demonstrates a focal septal wall defect which is only visible on the short axis images. Suspect artifactual. There is an apical and inferoseptal defect on the resting images which is not present on the poststress images, likewise probably artifactual. Calculated post stress ejection fraction 58%. No focal wall motion abnormality Impression: Nonischemic clinical response to pharmacologic stress, per cardiology report Nondiagnostic electrocardiographic response to pharmacologic stress, per cardiology report No definite evidence of ischemia, at level of stress achieved. Decreased activity in the septal wall on the post stress images is most likely artifactual, although small focus of ischemia not completely excludable Calculated post stress ejection fraction 58%
[2017-08-24] MEDS: Pantoprazole Inj IVP SCH (09:36)
[2017-08-24] MEDS: Metoprolol Tartrate 12.5mg TAB NG SCH ×2 (09:37→21:00)
[2017-08-24] MEDS: Aspirin Baby 81mg ORAL SCH (09:37)
[2017-08-24] MEDS: Enoxaparin Sodium 300mg/3ml vial SUBQ SCH ×2 (09:40→22:01)
--- NOTE | 2017-08-24 10:33 | Infectious Diseases Prog Note ---
Assessment/Plan Assessment/Plan Abx: IV Vanco 08/17-08/18 Ceftriaxone 08/18-08/21 Zosyn 08/17-08/18 Levaquin x1 08/17 Assessment: Acute hypercapneic/hypoxic respiratory failure s/p intubation 08/17; extubated 08/18- likely due to CHF exacerbation with possible COPD exacerbation -? PNA- no obvious infiltrates on CXR- resolved -CXR 08/18: Improving basilar parenchymal infiltrates versus edema, over one day -CTA chest: No evidence of pulmonary embolus, aortic dissection or aneurysm. Evidence of pulmonary artery hypertension. Moderate cardiomegaly. Reflux contrast into the IVC. Right heart failure versus tricuspid regurgitation. Posterior basilar atelectasis and trace pleural effusions. -CXR : Moderate pulmonary edema ?Possible PNA. s/p rx afebrile, no leukocytosis Lactic acidosis- resolved -u/a no pyuria B/L LE chronic venous stasis changes- no cellulitis ALIYAH Troponinemia pHTN COPD on home O2 2l NC CHF DM2 Plan: -Continue to monitor off abx -08/21 SP CEftriaxone #4 -08/18 SP Zosyn and Vanco #2 -Monitor CBC/CMP, temperatures -aspiration precautions Thank your for this consultation. Will continue to follow along with you. Discussed with RN Subjective Allergies: Coded Allergies: No Known Allergies (Unverified , 08/16/17) Subjective afebrile no leukocytosis 2L NC off abx stress test neg Objective Vital Signs Last 24 Hour Vital Signs Date Time Temp Pulse Resp B/P (MAP) Pulse Ox O2 Delivery O2 Flow Rate FiO2 08/24/17 09:37 77 118/58 08/24/17 08:00 98.1 77 20 118/58 95 Nasal Cannula 2.0 08/24/17 07:20 95 Nasal Cannula 2.0 28 08/24/17 07:20 Nasal Cannula 2.0 28 08/24/17 04:00 97.3 81 20 111/70 97 Nasal Cannula 2.0 08/24/17 04:00 81 08/24/17 00:00 97.7 76 20 104/74 97 Nasal Cannula 2.0 08/23/17 21:00 71 111/66 08/23/17 20:00 97.6 71 20 111/66 96 Nasal Cannula 2.0 08/23/17 20:00 71 08/23/17 19:45 82 25 Nasal Cannula 2.0 28 08/23/17 19:45 94 Nasal Cannula 2.0 28 08/23/17 19:45 Nasal Cannula 2.0 28 08/23/17 16:00 97.9 80 20 119/64 93 Nasal Cannula 2.0 08/23/17 16:00 79 08/23/17 12:46 61 08/23/17 12:00 96.3 70 20 105/65 98 08/23/17 12:00 98 Nasal Cannula 2.0 Height (Feet): 5 Height (Inches): 11.00 Weight (Pounds): 199 Objective GENERAL: No acute distress. VITAL SIGNS: Reviewed. PULMONARY: Decreased breath sounds. Status post intubation. CARDIOVASCULAR: Regular rate. No S3 or S4. ABDOMEN: Soft, nontender, and nondistended. EXTREMITIES: A 1+ edema. b/l leg chornic venous stasis changes Laboratory Tests Test 08/24/17 03:10 White Blood Count 7.7 K/UL (4.8-10.8) Red Blood Count 4.90 M/UL (4.20-5.40) Hemoglobin 14.1 G/DL (12.0-16.0) Hematocrit 48.0 % (37.0-47.0) H Mean Corpuscular Volume 98 FL (80-99) Mean Corpuscular Hemoglobin 28.7 PG (27.0-31.0) Mean Corpuscular Hemoglobin Concent 29.3 G/DL (32.0-36.0) L Red Cell Distribution Width 14.4 % (11.6-14.8) Platelet Count 194 K/UL (150-450) Mean Platelet Volume 7.6 FL (6.5-10.1) Neutrophils (%) (Auto) 60.1 % (45.0-75.0) Lymphocytes (%) (Auto) 21.1 % (20.0-45.0) Monocytes (%) (Auto) 10.7 % (1.0-10.0) H Eosinophils (%) (Auto) 7.1 % (0.0-3.0) H Basophils (%) (Auto) 1.0 % (0.0-2.0) Sodium Level 143 MMOL/L (136-145) Potassium Level 4.5 MMOL/L (3.5-5.1) Chloride Level 106 MMOL/L (98-107) Carbon Dioxide Level 30 MMOL/L (21-32) Anion Gap 7 mmol/L (5-15) Blood Urea Nitrogen 16 mg/dL (7-18) Creatinine 1.1 MG/DL (0.55-1.30) Estimat Glomerular Filtration Rate 50.8 mL/min (>60) Glucose Level 79 MG/DL (74-106) Uric Acid 8.0 MG/DL (2.6-7.2) H Calcium Level 7.6 MG/DL (8.5-10.1) L Phosphorus Level 3.5 MG/DL (2.5-4.9) Magnesium Level 1.9 MG/DL (1.8-2.4) Total Bilirubin 0.5 MG/DL (0.2-1.0) Aspartate Amino Transf (AST/SGOT) 26 U/L (15-37) Alanine Aminotransferase (ALT/SGPT) 18 U/L (12-78) Alkaline Phosphatase 65 U/L (46-116) Troponin I 0.255 ng/mL (0.000-0.056) C-Reactive Protein, Quantitative 1.6 mg/dL (0.00-0.90) H Pro-B-Type Natriuretic Peptide 629 pg/mL (0-125) H Total Protein 7.2 G/DL (6.4-8.2) Albumin 2.8 G/DL (3.4-5.0) L Globulin 4.4 g/dL Albumin/Globulin Ratio 0.6 (1.0-2.7) L Current Medications Medications (Trade) Dose Ordered Sig/Jenny Route PRN Reason Start Time Stop Time Status Last Admin Dose Admin Aspirin (ASA) 81 mg DAILY ORAL 08/22/17 12:30 09/21/17 12:29 08/24/17 09:37 Atorvastatin Calcium (Lipitor) 20 mg BEDTIME ORAL 08/22/17 21:00 09/21/17 20:59 08/23/17 22:44 Dextrose (Dextrose 50%) STAT PRN IV Hypoglycemia 08/20/17 09:00 09/17/17 08:59 Enoxaparin Sodium (Lovenox) 90 mg EVERY 12 HOURS SUBQ 08/19/17 21:00 09/16/17 20:59 08/24/17 09:40 Metoprolol Tartrate (Lopressor) 25 mg Q12HR NG 08/21/17 21:00 09/20/17 20:59 08/24/17 09:37 Pantoprazole (Protonix) 40 mg DAILY IVP 08/20/17 09:00 09/17/17 08:59 08/24/17 09:36 Parisa Lackey M.D. Aug 24, 2017 10:33
[2017-08-24 12:00] VITALS: BP 111/69
--- NOTE | 2017-08-24 12:42 | General Progress Note ---
Assessment/Plan Problem List: (1) Acute exacerbation of CHF (congestive heart failure) ICD Codes: I50.9 - Heart failure, unspecified SNOMED: 19800429, 727397310 Qualifiers: Qualified Codes: I50.9 - Heart failure, unspecified (2) NSTEMI, initial episode of care ICD Codes: I21.4 - Non-ST elevation (NSTEMI) myocardial infarction SNOMED: 375098859, 44450823 (3) Respiratory failure with hypoxia and hypercapnia ICD Codes: J96.91 - Respiratory failure, unspecified with hypoxia; J96.92 - Respiratory failure, unspecified with hypercapnia SNOMED: 89521333, 173082067 Qualifiers: Qualified Codes: J96.21 - Acute and chronic respiratory failure with hypoxia ; J96.22 - Acute and chronic respiratory failure with hypercapnia (4) ACS (acute coronary syndrome) ICD Codes: I24.9 - Acute ischemic heart disease, unspecified; J96.92 - Respiratory failure, unspecified with hypercapnia SNOMED: 084036104, 009524152 (5) Pulmonary hypertension ICD Codes: I27.20 - Pulmonary hypertension, unspecified SNOMED: 85389867 (6) Respiratory failure requiring intubation ICD Codes: J96.90 - Respiratory failure, unspecified, unspecified whether with hypoxia or hypercapnia; Z68.41 - Body mass index (BMI) 40.0-44.9, adult SNOMED: 450879406, 184896124 (7) Acute renal failure ICD Codes: N17.9 - Acute kidney failure, unspecified SNOMED: 40872016 Status: progressing Assessment/Plan s/p extubation chf exacerbation improving trop is improving s/p mi resp insuff no wheezing reviewed chart and labs Subjective ROS Limited/Unobtainable: Yes Constitutional: Reports: no symptoms Allergies: Coded Allergies: No Known Allergies (Unverified , 08/16/17) Objective Last 24 Hour Vital Signs Date Time Temp Pulse Resp B/P (MAP) Pulse Ox O2 Delivery O2 Flow Rate FiO2 08/24/17 09:37 77 118/58 08/24/17 08:00 81 08/24/17 08:00 98.1 77 20 118/58 95 Nasal Cannula 2.0 08/24/17 07:20 95 Nasal Cannula 2.0 28 08/24/17 07:20 Nasal Cannula 2.0 28 08/24/17 04:00 97.3 81 20 111/70 97 Nasal Cannula 2.0 08/24/17 04:00 81 08/24/17 00:00 97.7 76 20 104/74 97 Nasal Cannula 2.0 08/23/17 21:00 71 111/66 08/23/17 20:00 97.6 71 20 111/66 96 Nasal Cannula 2.0 08/23/17 20:00 71 08/23/17 19:45 82 25 Nasal Cannula 2.0 28 08/23/17 19:45 94 Nasal Cannula 2.0 28 08/23/17 19:45 Nasal Cannula 2.0 28 08/23/17 16:00 97.9 80 20 119/64 93 Nasal Cannula 2.0 08/23/17 16:00 79 08/23/17 12:46 61 Intake and Output 08/23/17 08/24/17 19:00 07:00 Intake Total 520 ml Balance 520 ml Intake Oral 520 ml # Voids 3 1 # Bowel Movements 1 Laboratory Tests 08/24/17 03:10: White Blood Count 7.7, Red Blood Count 4.90, Hemoglobin 14.1, Hematocrit 48.0H, Mean Corpuscular Volume 98, Mean Corpuscular Hemoglobin 28.7, Mean Corpuscular Hemoglobin Concent 29.3L, Red Cell Distribution Width 14.4, Platelet Count 194, Mean Platelet Volume 7.6, Neutrophils (%) (Auto) 60.1, Lymphocytes (%) (Auto) 21.1, Monocytes (%) (Auto) 10.7H, Eosinophils (%) (Auto) 7.1H, Basophils (%) ( Auto) 1.0, Sodium Level 143, Potassium Level 4.5, Chloride Level 106, Carbon Dioxide Level 30, Anion Gap 7, Blood Urea Nitrogen 16, Creatinine 1.1, Estimat Glomerular Filtration Rate 50.8, Glucose Level 79, Uric Acid 8.0H, Calcium Level 7.6L, Phosphorus Level 3.5, Magnesium Level 1.9, Total Bilirubin 0.5, Aspartate Amino Transf (AST/SGOT) 26, Alanine Aminotransferase (ALT/SGPT) 18, Alkaline Phosphatase 65, Troponin I 0.255H, C-Reactive Protein, Quantitative 1.6H, Pro-B-Type Natriuretic Peptide 629H, Total Protein 7.2, Albumin 2.8L, Globulin 4.4, Albumin/Globulin Ratio 0.6L Height (Feet): 5 Height (Inches): 11.00 Weight (Pounds): 199 EENT: PERRL/EOMI Neck: supple Cardiovascular: normal rate Respiratory/Chest: lungs clear Erinn Segal MD Aug 24, 2017 12:42
[2017-08-24 16:00] VITALS: BP 110/67
--- NOTE | 2017-08-24 16:40 | Cardiology Report ---
APPROVED REPORT EXAM: Two-dimensional and M-mode echocardiogram with Doppler and color Doppler. INDICATION CAD M-Mode DIMENSIONS IVSd0.9 (0.7-1.1cm)Left Atrium (MM)3.9 (1.6-4.0cm) LVDd4.1 (3.5-5.6cm)Aortic Root3.0 (2.0-3.7cm) PWd0.8 (0.7-1.1cm) IVSs1.4 cm LVDs3.1 (2.5-4.0cm) PWs1.0 cm Technically difficult study due to poor windows and patient position. Normal left ventricular chamber size, systolic function and wall motion to extent visualized. Left ventricular ejection fraction estimated to be 55 %. No evidence of ventricular hypertrophy by 2-D. No evidence of pericardial effusion All other cardiac chamber sizes are within normal limits. Focal aortic valve sclerosis with adequate cusp excursion. Thickened mitral valve leaflets with normal excursion. Mitral annulus and aortic root calcification. Normal pulmonic valve structure. Normal tricuspid valve structure. IVC dilated at 2.4 cm with slight physiologic collapse . Apical views can not obtained. Tricuspid systolic velocities suggests peak right ventricular systolic pressure of 20 mmHg Mild Pulmonic regurgitation present.
--- NOTE | 2017-08-24 18:56 | Cardiology Progress Note ---
Assessment/Plan Assessment/Plan (1) Pulmonary hypertension (2) Acute exacerbation of CHF (congestive heart failure) (3) Abnormal cardiac enzymes ? 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 bp is fine lipids not sig elevated not a smoker no need for further testing at this time needs to fu with pmd skilled nursing dc planning Subjective Cardiovascular: Denies: chest pain, lightheadedness, palpitations Respiratory: Denies: shortness of breath Gastrointestinal/Abdominal: Denies: abdominal pain Genitourinary: Denies: burning Objective Last 24 Hour Vital Signs Date Time Temp Pulse Resp B/P (MAP) Pulse Ox O2 Delivery O2 Flow Rate FiO2 08/24/17 16:00 98.1 63 18 110/67 96 Nasal Cannula 2.0 08/24/17 16:00 58 08/24/17 12:00 97.9 57 20 111/69 99 Nasal Cannula 2.0 08/24/17 12:00 59 08/24/17 09:37 77 118/58 08/24/17 08:00 81 08/24/17 08:00 98.1 77 20 118/58 95 Nasal Cannula 2.0 08/24/17 07:20 95 Nasal Cannula 2.0 28 08/24/17 07:20 Nasal Cannula 2.0 28 08/24/17 04:00 97.3 81 20 111/70 97 Nasal Cannula 2.0 08/24/17 04:00 81 08/24/17 00:00 97.7 76 20 104/74 97 Nasal Cannula 2.0 08/23/17 21:00 71 111/66 08/23/17 20:00 97.6 71 20 111/66 96 Nasal Cannula 2.0 08/23/17 20:00 71 08/23/17 19:45 82 25 Nasal Cannula 2.0 28 08/23/17 19:45 94 Nasal Cannula 2.0 28 08/23/17 19:45 Nasal Cannula 2.0 28 General Appearance: no apparent distress, alert, obese Neck: supple Cardiovascular: normal rate, regular rhythm Respiratory/Chest: lungs clear, normal breath sounds Abdomen: normal bowel sounds, non tender, soft Extremities: no swelling Intake and Output 08/23/17 08/24/17 19:00 07:00 Intake Total 520 ml Balance 520 ml Intake Oral 520 ml # Voids 3 1 # Bowel Movements 1 Laboratory Tests Test 08/24/17 03:10 White Blood Count 7.7 K/UL (4.8-10.8) Red Blood Count 4.90 M/UL (4.20-5.40) Hemoglobin 14.1 G/DL (12.0-16.0) Hematocrit 48.0 % (37.0-47.0) H Mean Corpuscular Volume 98 FL (80-99) Mean Corpuscular Hemoglobin 28.7 PG (27.0-31.0) Mean Corpuscular Hemoglobin Concent 29.3 G/DL (32.0-36.0) L Red Cell Distribution Width 14.4 % (11.6-14.8) Platelet Count 194 K/UL (150-450) Mean Platelet Volume 7.6 FL (6.5-10.1) Neutrophils (%) (Auto) 60.1 % (45.0-75.0) Lymphocytes (%) (Auto) 21.1 % (20.0-45.0) Monocytes (%) (Auto) 10.7 % (1.0-10.0) H Eosinophils (%) (Auto) 7.1 % (0.0-3.0) H Basophils (%) (Auto) 1.0 % (0.0-2.0) Sodium Level 143 MMOL/L (136-145) Potassium Level 4.5 MMOL/L (3.5-5.1) Chloride Level 106 MMOL/L (98-107) Carbon Dioxide Level 30 MMOL/L (21-32) Anion Gap 7 mmol/L (5-15) Blood Urea Nitrogen 16 mg/dL (7-18) Creatinine 1.1 MG/DL (0.55-1.30) Estimat Glomerular Filtration Rate 50.8 mL/min (>60) Glucose Level 79 MG/DL (74-106) Uric Acid 8.0 MG/DL (2.6-7.2) H Calcium Level 7.6 MG/DL (8.5-10.1) L Phosphorus Level 3.5 MG/DL (2.5-4.9) Magnesium Level 1.9 MG/DL (1.8-2.4) Total Bilirubin 0.5 MG/DL (0.2-1.0) Aspartate Amino Transf (AST/SGOT) 26 U/L (15-37) Alanine Aminotransferase (ALT/SGPT) 18 U/L (12-78) Alkaline Phosphatase 65 U/L (46-116) Troponin I 0.255 ng/mL (0.000-0.056) C-Reactive Protein, Quantitative 1.6 mg/dL (0.00-0.90) H Pro-B-Type Natriuretic Peptide 629 pg/mL (0-125) H Total Protein 7.2 G/DL (6.4-8.2) Albumin 2.8 G/DL (3.4-5.0) L Globulin 4.4 g/dL Albumin/Globulin Ratio 0.6 (1.0-2.7) L CHRISTINE MORATAYA Aug 24, 2017 18:56
[2017-08-24 20:00] VITALS: BP_SYST 94; BP_SYST 98; BP_DIAS 56
[2017-08-24] MEDS: Atorvastatin 20mg tab ORAL SCH (22:00)
[2017-08-25] VITALS: BP 110/63
[2017-08-25 04:00] VITALS: BP 105/62
[2017-08-25 08:00] VITALS: BP 103/61
[2017-08-25] MEDS: Aspirin Baby 81mg ORAL SCH (08:41)
[2017-08-25] MEDS: Pantoprazole Inj IVP SCH (08:41)
[2017-08-25] MEDS: Metoprolol Tartrate 12.5mg TAB NG SCH (08:42)
[2017-08-25] MEDS: Enoxaparin Sodium 300mg/3ml vial SUBQ SCH (08:44)
[2017-08-25 12:00] VITALS: BP 100/66
--- NOTE | 2017-08-25 12:26 | Pulmonology Progress Note ---
Assessment/Plan Problems: (1) Acute exacerbation of CHF (congestive heart failure) (2) NSTEMI, initial episode of care (3) Morbid obesity with BMI of 40.0-44.9, adult (4) Cellulitis (5) Pulmonary hypertension Assessment/Plan improving cxr clear asymptomatic cardio note reviewed Subjective ROS Limited/Unobtainable: No Constitutional: Reports: no symptoms HEENT: Repors: no symptoms Respiratory: Reports: no symptoms Allergies: Coded Allergies: No Known Allergies (Unverified , 08/16/17) Objective Last 24 Hour Vital Signs Date Time Temp Pulse Resp B/P (MAP) Pulse Ox O2 Delivery O2 Flow Rate FiO2 08/25/17 08:42 65 95/63 08/25/17 08:00 97.2 65 20 103/61 98 Nasal Cannula 2.0 08/25/17 08:00 61 08/25/17 07:44 Nasal Cannula 2.0 28 08/25/17 07:43 98 Nasal Cannula 2.0 28 08/25/17 04:00 69 08/25/17 04:00 98.0 60 18 105/62 96 Nasal Cannula 2.0 08/25/17 00:00 97.6 59 19 110/63 96 Nasal Cannula 2.0 08/24/17 21:00 63 94/56 08/24/17 20:00 98.1 63 18 98/56 96 Nasal Cannula 2.0 08/24/17 20:00 61 08/24/17 20:00 98.1 63 18 94/56 96 Nasal Cannula 2.0 08/24/17 19:00 100 Nasal Cannula 2.0 28 08/24/17 19:00 Nasal Cannula 2.0 28 08/24/17 16:00 98.1 63 18 110/67 96 Nasal Cannula 2.0 08/24/17 16:00 58 Intake and Output 08/24/17 08/25/17 19:00 07:00 Intake Total 500 ml Balance 500 ml Intake Oral 500 ml # Bowel Movements 3 3 HEENT: normocephalic, atraumatic Cardiovascular: normal peripheral pulses, normal rate Abdomen: normal bowel sounds, soft, non tender Genitourinary: normal external genitalia Extremities: no clubbing Skin: no ulcers Neurologic/Psychiatric: no motor/sensory deficits Lymphatic: no neck adenopathy Current Medications Medications (Trade) Dose Ordered Sig/Jenny Route PRN Reason Start Time Stop Time Status Last Admin Dose Admin Aspirin (ASA) 81 mg DAILY ORAL 08/22/17 12:30 09/21/17 12:29 08/25/17 08:41 Atorvastatin Calcium (Lipitor) 20 mg BEDTIME ORAL 08/22/17 21:00 09/21/17 20:59 08/24/17 22:00 Dextrose (Dextrose 50%) STAT PRN IV Hypoglycemia 08/20/17 09:00 09/17/17 08:59 Enoxaparin Sodium (Lovenox) 90 mg EVERY 12 HOURS SUBQ 08/19/17 21:00 09/16/17 20:59 08/25/17 08:44 Metoprolol Tartrate (Lopressor) 25 mg Q12HR NG 08/21/17 21:00 09/20/17 20:59 08/24/17 09:37 Pantoprazole (Protonix) 40 mg DAILY IVP 08/20/17 09:00 09/17/17 08:59 08/25/17 08:41 SANDRA MAYBERRY Aug 25, 2017 12:26
[2017-08-25] MEDS ORDERED: ASPIRIN81 MG ORAL (12:33)
--- NOTE | 2017-08-25 13:03 | Nephrology Progress Note ---
Assessment/Plan Problem List: (1) Respiratory failure requiring intubation (2) Pulmonary hypertension (3) Morbid obesity with BMI of 40.0-44.9, adult (4) Acute renal failure Assessment s/p Rising Cr ( acute renal failure) multifactorial: mainly aggresive treatment of underlying CHF other: DM , Sepsis... Peoteinuria, HypoAlbuminemia, r/o Nephrotic Syndrom Cr WNL now conditions: acute hypoxemic hypercapnic RF requiring intubation elevated troponin possible NSTEMI pulmonary edema - CHF exacerbation pulmonary arterial HTN possible sepsis ,possible PNA, cellulitis BLE elevated D dimer morbid obesity COPD/asthma DM HTN Hyperlipidemia hx of DIANN elevated TSH Plan Sugg: no labs today Cardiac and pulmonary Optimization- Avoid Nephrotoxics- Monitor renal parameters correct electrolytes keep BP and BS under control Urine studies Subjective ROS Limited/Unobtainable: No Constitutional: Reports: malaise Objective Objective Last 24 Hour Vital Signs Date Time Temp Pulse Resp B/P (MAP) Pulse Ox O2 Delivery O2 Flow Rate FiO2 08/25/17 08:42 65 95/63 08/25/17 08:00 97.2 65 20 103/61 98 Nasal Cannula 2.0 08/25/17 08:00 61 08/25/17 07:44 Nasal Cannula 2.0 28 08/25/17 07:43 98 Nasal Cannula 2.0 28 08/25/17 04:00 69 08/25/17 04:00 98.0 60 18 105/62 96 Nasal Cannula 2.0 08/25/17 00:00 97.6 59 19 110/63 96 Nasal Cannula 2.0 08/24/17 21:00 63 94/56 08/24/17 20:00 98.1 63 18 98/56 96 Nasal Cannula 2.0 08/24/17 20:00 61 08/24/17 20:00 98.1 63 18 94/56 96 Nasal Cannula 2.0 08/24/17 19:00 100 Nasal Cannula 2.0 28 08/24/17 19:00 Nasal Cannula 2.0 28 08/24/17 16:00 98.1 63 18 110/67 96 Nasal Cannula 2.0 08/24/17 16:00 58 Intake and Output 08/24/17 08/25/17 19:00 07:00 Intake Total 500 ml Balance 500 ml Intake Oral 500 ml # Bowel Movements 3 3 Height (Feet): 5 Height (Inches): 11.00 Weight (Pounds): 199 General Appearance: no apparent distress Objective no change in PE LEONOR GENTILE Aug 25, 2017 13:03
--- NOTE | 2017-08-25 13:15 | Diagnostic Imaging Report ---
APPROVED REPORT CPT Code: 15191 Present Symptoms Shortness of breath Comments: Hx CHF, HTN. BILATERAL LOWER EXTREMITY VENOUS DUPLEX: Imaging reveals a patent deep venous system bilaterally. There is no evidence of thrombus within the femoral, popliteal or tibial segments. The greater saphenous veins are also within normal limits. Doppler indicates normal spontaneous flow within these segments.
[2017-08-25] MEDS ORDERED: NS 500ML ONE (14:59)
--- NOTE | 2017-08-26 15:24 | Discharge Summary ---
Discharge Summary Hospital Course Date of Admission Aug 17, 2017 at 00:25 Date of Discharge Aug 25, 2017 at 15:00 Admitting Diagnosis ACUTE CORONARY SYNDROME, RESPIRATORY FAILURE FLIP Ophelia Hilario is a 61 year old female who was admitted on Aug 17, 2017 at 00:25 for Acute Coronary Syndrome, Respiratory Failure Hospital Course [id number] Discharge Discharge Disposition Patient was discharged to Home (01) Discharge Diagnoses: Laura Monge NP Aug 26, 2017 15:24
--- NOTE | 2017-08-26 22:31 | Discharge Summary 2 SIG ---
DATE OF ADMISSION: 08/17/2017 DATE OF DISCHARGE: 08/25/2017 CONSULTANTS: 1. Viv Schmidt M.D. 2. Davidson Olivia M.D. 3. Manuel Tao M.D. 4. Parisa Lackey M.D. BRIEF HOSPITAL COURSE: The patient is a 61-year-old female with medical history significant for pulmonary hypertension, presented to ED for complaints of dyspnea and respiratory distress. She is normally on oxygen at home and had SOB x2 days, worse with exertion. Evaluation at ED showed acute on chronic respiratory failure. When she was waiting for a bed, she became somnolent. Blood gases showed hypercapnia. She was placed on BiPAP. However, there was no improvement. CO2 continued to rise. She was then orally intubated. Chest x-ray done showed right lung infiltrate. She was then admitted to ICU for acute hypoxemic, hypercapnic, respiratory failure. Troponin was elevated. Serial troponins were checked. She was started on empiric antibiotics. Zosyn was switched to ceftriaxone and IV vancomycin was discontinued. The patient had bilateral lower extremity venous stasis changes, however, no cellulitis. She was eventually extubated on 08/18/2017. Creatinine was rising. Echocardiogram done showed EF of 55%. Venous duplex was negative for acute DVT. Echocardiogram was technically difficult to assess limiting to value of LV systolic and diastolic function. Troponin was minimally elevated, however, was persistently abnormal. Perfusion imaging done did not show any significant abnormality. She was given aspirin, metoprolol, and Lipitor. Creatinine eventually normalized. Repeat chest x-ray was clear. She was eventually discharged home. FINAL DIAGNOSES: 1. Acute respiratory failure requiring intubation, status post extubation. 2. Morbid obesity. 3. Pulmonary hypertension. 4. Acute renal failure. 5. Pulmonary hypertension. 6. Abnormal cardiac enzymes, possible non-ST elevated myocardial infarction. 7. Acute congestive heart failure exacerbation, systolic in nature. 8. Chronic venous stasis of both lower extremity, no cellulitis. 9. Diabetes mellitus. 10. Lactic acidosis, resolved. DISPOSITION: The patient was discharged home. DISCHARGE MEDICATIONS: Refer to medications list. DISCHARGE INSTRUCTIONS: Follow up with PMD in a week. Erinn Segal M.D. I have been assigned to dictate discharge summary on this account and I was not involved in the patient's management. Laura Monge N.P. DR: Aleksandar JOB#: [id number] CC:
--- NOTE | 2017-08-30 00:17 | Cardiology Report ---
APPROVED REPORT EKG Measurement Heart [id number] 166P42 [id number] Normal sinus rhythm Possible Left atrial enlargement Right axis deviation Prolonged QT Abnormal ECG
--- NOTE | 2017-08-30 00:22 | Cardiology Report ---
APPROVED REPORT EKG Measurement Heart [id number] 166P12 [id number] Normal sinus rhythm Right axis deviation Prolonged QT Abnormal ECG
--- NOTE | 2017-10-18 14:54 | Cardiology Report ---
APPROVED REPORT EKG Measurement Heart [id number] 180P42 [id number] Normal sinus rhythm Right atrial enlargement Right axis deviation T wave abnormality, consider inferior ischemia T wave abnormality, consider anterolateral ischemia Abnormal ECG
== END 2017-08-25 15:00 | disposition home or self-care (01) | DRG 720 ==
LOC: EDBD 21:58 → EMR 23:55 → ICU 08-17 00:25 → EDBEDREQ 08-17 04:16 → EDBEDREQSVC 08-17 04:16 → EDBEDREQ 08-17 12:22 → 2W 08-19 10:53
PROC: 0BH17EZ Insertion of Endotracheal Airway into Trachea, Via Natural or Artificial Opening (ICD-10-PCS; principal; 2017-08-17)
PROC: 5A1945Z Respiratory Ventilation, 24-96 Consecutive Hours (ICD-10-PCS; principal; 2017-08-17)
DX: A41.9 Sepsis, unspecified organism (principal); J96.21 Acute and chronic respiratory failure with hypoxia; I21.4 Non-ST elevation (NSTEMI) myocardial infarction; N17.0 Acute kidney failure with tubular necrosis; I50.23 Acute on chronic systolic (congestive) heart failure; Z68.41 Body mass index [BMI] 40.0-44.9, adult; I24.9 Acute ischemic heart disease, unspecified; J44.0 Chronic obstructive pulmonary disease with (acute) lower respiratory infection; I27.20 Pulmonary hypertension, unspecified; J18.9 Pneumonia, unspecified organism; E66.01 Morbid (severe) obesity due to excess calories; R80.9 Proteinuria, unspecified; J96.22 Acute and chronic respiratory failure with hypercapnia; E87.2 Acidosis; J44.1 Chronic obstructive pulmonary disease with (acute) exacerbation; E11.9 Type 2 diabetes mellitus without complications; G47.33 Obstructive sleep apnea (adult) (pediatric); E78.5 Hyperlipidemia, unspecified; I87.8 Other specified disorders of veins; E83.42 Hypomagnesemia; E02 Subclinical iodine-deficiency hypothyroidism; Z99.81 Dependence on supplemental oxygen
CPT/HCPCS: 31500; 36415; 36600; 71010; 71275; 78452; 80048; 80053; 80061; 81003; 81050; 82248; 82550; 82553; 82803; 82962; 82977; 83036; 83605; 83735; 83880; 84100; 84156; 84439; 84443; 84484; 84550; 85025; 85379; 85610; 85730; 86039; 86140; 86431; 87070; 87081; 87205; 90630; 93005; 93017; 93306; 93970; 94002; 94003; 94640; 94660; 94664; 94760; J1815; J2250; J2785; J7620; J8499